=== PATIENT | male | born 1955 ===

== ENCOUNTER → 2017-12-09 09:14 | Outpatient (REF) | payer OTHER, SELFPAY ==
[2017-12-09 21:07] LABS: Cholesterol 141 mg/dL (50-200); HCT 36.1 % (40.0-50.0); HGB 11.8 g/dL (13.5-17.5); Mean Corp. HGB Concentration 32.7 g/dL (32.0-36.0); Mean Corpuscular Hemoglobin 30.2 pg (27.0-33.0); Mean Corpuscular Volume 92.3 fL (80-95); Mean Platelet Volume 10.3 fL (8.0-11.0); Platelet Count 181 x1000/uL (130-400); RBC 3.91 m/cumm (4.50-6.00); RBC Distribution Width 16.1 % (11.8-14.1); Triglyceride 198 mg/dL (30-150); White Blood Cell Count 8.49 k/cumm (4.4-10.8)
[2017-12-09 21:10] LABS: ALT 24 U/L (12-78); AST 14 U/L (15-37)
== END ==
LOC: NCHCN 09:14
PROVIDERS: PCP Family Medicine; Visit Provider Family Medicine
DX: L40.0 Psoriasis vulgaris (principal); Z79.899 Other long term (current) drug therapy
CPT/HCPCS: 85027; 82465; 84450; 84460; 84478

== ENCOUNTER → 2018-03-05 09:47 | Outpatient (BNVA) | payer OTHER, SELFPAY | PROVIDERS: PCP Family Medicine; Visit Provider Internal Medicine Cardiovascular Disease | DX: I42.9 Cardiomyopathy, unspecified (principal); I11.0 Hypertensive heart disease with heart failure; I50.9 Heart failure, unspecified; E11.40 Type 2 diabetes mellitus with diabetic neuropathy, unspecified; Z79.01 Long term (current) use of anticoagulants; R42 Dizziness and giddiness; E78.5 Hyperlipidemia, unspecified | CPT/HCPCS: 99214 ==

== ENCOUNTER 2018-03-17 09:52 | Outpatient (REF) | payer OTHER, SELFPAY ==
[2018-03-17 18:01] LABS: Cholesterol 146 mg/dL (50-200); Triglyceride 213 mg/dL (30-150)
[2018-03-17 18:04] LABS: HCT 36.6 % (40.0-50.0); Mean Corp. HGB Concentration 32.8 g/dL (32.0-36.0); Mean Corpuscular Hemoglobin 31.2 pg (27.0-33.0); Mean Corpuscular Volume 95.1 fL (80-95); Mean Platelet Volume 10.1 fL (8.0-11.0); Platelet Count 182 x1000/uL (130-400); RBC 3.85 m/cumm (4.50-6.00); RBC Distribution Width 16.3 % (11.8-14.1); White Blood Cell Count 8.68 k/cumm (4.4-10.8)
[2018-03-17 18:13] LABS: ALT 23 U/L (12-78); AST 13 U/L (15-37); Anion Gap 8.7 mmol/L (3-11); BUN 37 mg/dL (7-18); CO2 28.3 mmol/L (21.0-32.0); CREATININE 1.66 mg/dL (0.70-1.30); Chloride 101 mmol/L (98-107); Estimated GFR 42.33 (mL/min/1.73m2); Ferritin 251 ng/mL (8-388); Glucose 149 mg/dL (70-100); Magnesium 1.7 mg/dL (1.8-2.4); Potassium 4.1 mmol/L (3.5-5.1); Sodium 138 mmol/L (136-145)
== END 2018-03-17 10:12 ==
LOC: NCHCN 09:52
PROVIDERS: PCP Family Medicine; Visit Provider Family Medicine
DX: E11.9 Type 2 diabetes mellitus without complications (principal); I10 Essential (primary) hypertension; L40.0 Psoriasis vulgaris; Z79.899 Other long term (current) drug therapy
CPT/HCPCS: 80048; 85027; 82465; 82728; 83735; 84450; 84460; 84478; 85014; 85018

== ENCOUNTER 2018-03-26 18:59 | Outpatient (REF) | payer OTHER, SELFPAY ==
[2018-03-26 19:39] LABS: Albumin 3.5 g/dL (3.4-5.0); Anion Gap 8.8 mmol/L (3-11); BUN 38 mg/dL (7-18); CO2 28.2 mmol/L (21.0-32.0); Calcium 8.8 mg/dL (8.5-10.1); Chloride 100 mmol/L (98-107); Estimated GFR 51.52 (mL/min/1.73m2); Glucose 209 mg/dL (70-100); PHOSPHORUS 3.8 mg/dL (2.6-4.7); Potassium 4.2 mmol/L (3.5-5.1); Sodium 137 mmol/L (136-145)
== END 2018-03-26 19:19 ==
LOC: NCHCN 18:59
PROVIDERS: PCP Family Medicine; Visit Provider Family Medicine
DX: I10 Essential (primary) hypertension (principal); E11.9 Type 2 diabetes mellitus without complications; Z79.899 Other long term (current) drug therapy
CPT/HCPCS: 80048; 80069

== ENCOUNTER 2018-07-12 00:28 | Outpatient (CLI) | payer OTHER, SELFPAY ==
--- NOTE | 2018-07-12 14:00 | MERGE_ITS ---
*[facility]* *[facility]* [address] [place] [address] Date of study: 07/12/2018 Transthoracic Echocardiography M-mode, complete 2D, complete spectral Doppler, and color Doppler *STUDY CONCLUSIONS* Summary: 1. Left ventricle: The cavity size was moderately dilated. Systolic function was moderately to severely reduced. The estimated ejection fraction was 30-35%. Diffuse hypokinesis. Some parameters suggest diastolic dysfunction. There was no evidence of elevated ventricular filling pressure by Doppler parameters. Stroke volume/bsa (LVOT, Doppler): 18ml/m^2. 2. Aortic valve: There was mild stenosis. Peak velocity (S): 1.6m/sec. Mean gradient (S): 7.3mm Hg. VTI ratio of LVOT to aortic valve: 0.39. Valve area (VTI): 1.4cm^2. Indexed valve area (Vmean): 0.4cm^2/m^2. 3. Mitral valve: There was mild regurgitation. 4. Left atrium: The atrium was mildly dilated. 5. Right ventricle: The cavity size was normal. Wall thickness was normal. Systolic function was normal. 6. Right atrium: The atrium was mildly dilated. 7. Atrial septum: No defect or patent foramen ovale was identified. 8. Pulmonary arteries: Pulmonary systolic pressure was in the range of 15mm Hg to 25mm Hg. 9. Inferior vena cava: The vessel was patent and normal in size. The respirophasic diameter changes were in the normal range (greater than or equal to 50%), consistent with normal central venous pressure. *PATIENT PRESENTATION* Height: 177.8cm ((70in) ) S/D Pressure: 135 / 75 Weight: 176.9kg ((389.2lb) ) BSA: 3.06m^2 Test start time: 02:00 PM. Test stop time: 03:20 PM. CONSULTING Goldie Gutierrez V PERFORMING Unknown ORDERING Frank Miller REFERRING Frank Miller PERFORMING [facility] PHOTOCOPYING MACHINE OPERATOR Eileen Graves, RT (R)(CT), RD *PROCEDURE DATA* Procedure information: The patient was identified by two identifiers. This study was interpreted by [facility]. Pertinent images and digital data are archived for permanent storage and are available for subsequent review. Comparison was made to the study of 09/16/2017. Study status: Routine. Transthoracic echocardiography. M-mode, complete 2D, complete spectral Doppler, and color Doppler. A Transthoracic Echocardiogram was performed. Scanning was performed from the parasternal, apical, subcostal, and suprasternal notch acoustic windows. Images were obtained using an [id number] cardiac ultrasound machine. Image quality was adequate. Intravenous contrast (Definity) was administered by magnolia to enhance delineation of left ventricular endocardial borders. Prior to administration at least two (2) contiguous segments of the left ventricular border were not visualized. Definity amount administered was a total of 1ml. One vial was used. Study completion: The patient tolerated the procedure well. History: PMH: Cardiomyopathy. HTN COURTNEY i42.9, i10, G47.33. *CARDIAC ANATOMY* Left ventricle: The cavity size was moderately dilated. Systolic function was moderately to severely reduced. The estimated ejection fraction was 30-35%. Diffuse hypokinesis. The tissue Doppler parameters were abnormal. Some parameters suggest diastolic dysfunction. There was no evidence of elevated ventricular filling pressure by Doppler parameters. Aortic valve: Doppler: There was mild stenosis. There was no regurgitation. VTI ratio of LVOT to aortic valve: 0.39. Valve area (VTI): 1.4cm^2. Indexed valve area (VTI): 0.5cm^2/m^2. Peak velocity ratio of LVOT to aortic valve: 0.4. Valve area (Vmax): 1.4cm^2. Indexed valve area (Vmax): 0.5cm^2/m^2. Mean velocity ratio of LVOT to aortic valve: 0.36. Valve area (Vmean): 1.3cm^2. Indexed valve area (Vmean): 0.4cm^2/m^2. Mean gradient (S): 7.3mm Hg. Peak gradient (S): 10.6mm Hg. Aorta: Aortic root: The aortic root was normal in size. Ascending aorta: The ascending aorta was mildly dilated. Mitral valve: Doppler: There was no evidence for stenosis. There was mild regurgitation. Valve area by pressure half-time: 4cm^2. Indexed valve area by pressure half-time: 1.3cm^2/m^2. Peak gradient (D): 2.1mm Hg. Left atrium: The atrium was mildly dilated. Atrial septum: No defect or patent foramen ovale was identified. Right ventricle: The cavity size was normal. Wall thickness was normal. Systolic function was normal. Pulmonic valve: Doppler: There was no evidence for stenosis. There was no significant regurgitation. Peak gradient (S): 5.2mm Hg. Tricuspid valve: Doppler: There was mild regurgitation. Pulmonary artery: Poorly visualized. Pulmonary systolic pressure was in the range of 15mm Hg to 25mm Hg. Right atrium: The atrium was mildly dilated. Pericardium: There was no pericardial effusion. Systemic veins: Inferior vena cava: Not well visualized. The vessel was patent and normal in size. The respirophasic diameter changes were in the normal range (greater than or equal to 50%), consistent with normal central venous pressure. Baseline ECG: Normal sinus rhythm. Measurements Left ventricle Value 09/16/2017 Reference LV ID, ED, PLAX (H) 7.1 cm 7.7 3.5 - 6.0 LV ID, ES, PLAX (H) 5.8 cm 6.6 2.1 - 4.0 LV PW thickness, ED, PLAX 1.0 cm 0.9 LV end-diastolic volume, 310 ml 188 1-p A2C LV ejection fraction, 1-p 34 % 32 A2C LV end-diastolic volume, 360 ml 298 1-p A4C LV ejection fraction, 1-p 38 % 31 A4C LV e', lateral 0.076 m/sec 0.067 LV E/e', lateral 10 15 LV e', medial 0.05 m/sec 0.048 LV E/e', medial 14 21 LV e', average 0.063 m/sec 0.058 LV E/e', average 11 17 Ventricular septum Value 09/16/2017 Reference IVS thickness, ED, PLAX 0.9 cm 1.0 LVOT Value 09/16/2017 Reference LVOT ID, A-P 2.1 cm 2.1 LVOT area 3.6 cm^2 3.6 LVOT peak velocity, S 0.65 m/sec 0.81 LVOT mean velocity, S 0.48 m/sec 0.63 LVOT VTI, S 15.1 cm 20.7 LVOT peak gradient, S 1.7 mm Hg 2.6 LVOT mean gradient, S 1 mm Hg 1.8 Stroke volume (SV), LVOT 54 ml 74 DP Stroke index (SV/bsa), 18 ml/m^2 24 LVOT DP Aortic valve Value 09/16/2017 Reference Aortic valve peak 1.6 m/sec 1.9 velocity, S Aortic valve mean 1.32 m/sec 1.39 velocity, S Aortic valve VTI, S 39.0 cm 47.0 Aortic mean gradient, S 7.3 mm Hg 8.5 Aortic peak gradient, S 10.6 mm Hg 15.2 VTI ratio, LVOT/AV 0.39 0.44 Aortic valve area, VTI 1.4 cm^2 1.6 Velocity ratio, peak, 0.4 0.42 LVOT/AV Aortic valve area, peak 1.4 cm^2 1.5 velocity Velocity ratio, mean, 0.36 0.45 LVOT/AV Aortic valve area, mean 1.3 cm^2 1.6 velocity Aortic valve area/bsa, 0.4 cm^2/m^2 0.5 mean velocity Aorta Value 09/16/2017 Reference Aortic root ID, ED 3.4 cm 3.5 Ascending aorta ID, A-P, S 3.5 cm 3.0 Left atrium Value 09/16/2017 Reference LA area, ES, A4C (H) 28.9 cm^2 28.7 8.8 - 23.4 LA area, ES, A2C 18 cm^2 23 LA volume/bsa, ES, 1-p A4C 40 ml/m^2 39 LA volume, ES, 2-p 75 ml 93 LA volume/bsa, ES, 2-p 24 ml/m^2 30 Mitral valve Value 09/16/2017 Reference Mitral E-wave peak 0.72 m/sec 0.99 velocity Mitral A-wave peak 0.88 m/sec 0.79 velocity Mitral deceleration time 192 ms 172 150 - 230 Mitral pressure half-time 56 ms 50 Mitral peak gradient, D 2.1 mm Hg 3.9 Mitral E/A ratio, peak 0.82 1.25 Mitral valve area, PHT, DP 4 cm^2 4.4 Tricuspid valve Value 09/16/2017 Reference Tricuspid regurg peak 2 m/sec 2.3 velocity Tricuspid peak RV-RA 15.5 mm Hg 22 gradient Right atrium Value 09/16/2017 Reference RA area, ES, A4C (H) 24 cm^2 21.1 8.3 - 19.5 Pulmonic valve Value 09/16/2017 Reference Pulmonic peak gradient, S 5.2 mm Hg Legend: (L) and (H) wilton values outside specified reference range. I have personally reviewed the images and have reviewed and edited the reported findings. Electronically signed by Zelalem Edwards MD 07/12/2018 18:15
== END 2018-07-12 00:48 ==
PROVIDERS: PCP Family Medicine; Visit Provider Internal Medicine Cardiovascular Disease
DX: I42.9 Cardiomyopathy, unspecified (principal); I35.0 Nonrheumatic aortic (valve) stenosis; I34.0 Nonrheumatic mitral (valve) insufficiency; I10 Essential (primary) hypertension; G47.33 Obstructive sleep apnea (adult) (pediatric)
CPT/HCPCS: C8929

== ENCOUNTER → 2018-07-23 13:52 | Outpatient (BNVA) | payer OTHER, MEDICARE, SELFPAY | PROVIDERS: PCP Family Medicine; Visit Provider Internal Medicine Cardiovascular Disease | DX: I42.0 Dilated cardiomyopathy (principal); I13.0 Hypertensive heart and chronic kidney disease with heart failure and stage 1 through stage 4 chronic kidney disease, or unspecified chronic kidney disease; E78.5 Hyperlipidemia, unspecified; I50.9 Heart failure, unspecified; E11.9 Type 2 diabetes mellitus without complications; N18.9 Chronic kidney disease, unspecified | CPT/HCPCS: 99214 ==

== ENCOUNTER 2018-07-23 14:31 | Outpatient (CLI) | payer OTHER, MEDICARE, SELFPAY ==
[2018-07-23 14:57] LABS: HCT 39.1 % (40.0-50.0); HGB 12.8 g/dL (13.5-17.5); Mean Corp. HGB Concentration 32.7 g/dL (32.0-36.0); Mean Corpuscular Hemoglobin 31.1 pg (27.0-33.0); Mean Corpuscular Volume 94.9 fL (80-95); Mean Platelet Volume 9.1 fL (8.0-11.0); Platelet Count 183 x1000/uL (130-400); RBC 4.12 m/cumm (4.50-6.00); White Blood Cell Count 10.08 k/cumm (4.4-10.8)
[2018-07-23 17:14] LABS: ALT 21 U/L (12-78); AST 13 U/L (15-37)
[2018-07-23 17:15] LABS: Cholesterol 155 mg/dL (50-200); Triglyceride 310 mg/dL (30-150)
== END 2018-07-23 14:51 ==
PROVIDERS: PCP Family Medicine; Visit Provider Dermatology
DX: Z79.899 Other long term (current) drug therapy (principal); L40.9 Psoriasis, unspecified
CPT/HCPCS: 36415; 85027; 99214; 82465; 84450; 84460; 84478

== ENCOUNTER 2018-08-27 09:35 | Outpatient (REF) | payer OTHER, MEDICARE, SELFPAY ==
[2018-08-27 20:54] LABS: Hemoglobin A1C 5.9 % (4.5-6.2)
[2018-08-27 21:12] LABS: BUN 33 mg/dL (7-18); CREATININE 1.34 mg/dL (0.70-1.30); Chloride 100 mmol/L (98-107); Estimated GFR 54.19 (mL/min/1.73m2); Glucose 154 mg/dL (70-100); Potassium 4.1 mmol/L (3.5-5.1); Sodium 139 mmol/L (136-145); TSH (W/Ref FT4) 0.33 uIU/mL (0.358-3.74)
[2018-08-27 21:58] LABS: FREE T4 1.08 ng/dL (0.76-1.46)
[2018-08-30 12:13] LABS: PSA, Screening 0.6 ng/ml (0-4.5)
== END 2018-08-27 09:55 ==
LOC: NCHCN 09:35
PROVIDERS: PCP Family Medicine; Visit Provider Family Medicine
DX: E11.9 Type 2 diabetes mellitus without complications (principal); E03.9 Hypothyroidism, unspecified; I10 Essential (primary) hypertension; N28.9 Disorder of kidney and ureter, unspecified; Z00.00 Encounter for general adult medical examination without abnormal findings; Z12.5 Encounter for screening for malignant neoplasm of prostate
CPT/HCPCS: 80048; 84153; 83036; 84439; 84443

== ENCOUNTER 2018-12-23 11:10 | Outpatient (REF) | payer OTHER, MEDICARE, SELFPAY ==
[2018-12-23 21:38] LABS: HCT 36.5 % (40.0-50.0); HGB 12.2 g/dL (13.5-17.5); Mean Corp. HGB Concentration 33.4 g/dL (32.0-36.0); Mean Corpuscular Hemoglobin 31.9 pg (27.0-33.0); Mean Corpuscular Volume 95.3 fL (80-95); Mean Platelet Volume 10.1 fL (8.0-11.0); Platelet Count 174 x1000/uL (130-400); RBC 3.83 m/cumm (4.50-6.00); RBC Distribution Width 16.1 % (11.8-14.1); White Blood Cell Count 8.19 k/cumm (4.4-10.8)
[2018-12-23 21:51] LABS: Cholesterol 152 mg/dL (50-200); Triglyceride 244 mg/dL (30-150)
[2018-12-23 22:11] LABS: ALT 23 U/L (16-63); AST 11 U/L (15-37); Anion Gap 6.8 mmol/L (3-11); BUN 43 mg/dL (7-18); CO2 32.2 mmol/L (21.0-32.0); CREATININE 1.42 mg/dL (0.70-1.30); Chloride 100 mmol/L (98-107); Estimated GFR 50.52 (mL/min/1.73m2); Glucose 183 mg/dL (70-100); Potassium 4.6 mmol/L (3.5-5.1); Sodium 139 mmol/L (136-145); Vitamin B12 508 pg/mL (193-986)
== END 2018-12-23 11:30 ==
LOC: NCHCN 11:10
PROVIDERS: PCP Family Medicine; Visit Provider Family Medicine
DX: I10 Essential (primary) hypertension (principal); N28.9 Disorder of kidney and ureter, unspecified; G62.9 Polyneuropathy, unspecified; L40.0 Psoriasis vulgaris; Z79.899 Other long term (current) drug therapy
CPT/HCPCS: 80048; 85027; 82465; 82607; 84450; 84460; 84478

== ENCOUNTER 2019-06-30 09:28 | Outpatient (REF) | payer OTHER, MEDICARE, SELFPAY ==
[2019-06-30 19:45] LABS: ALT 21 U/L (16-63); AST 14 U/L (15-37); Albumin 3.6 g/dL (3.4-5.0); Alkaline Phosphatase 76 U/L (46-116); Anion Gap 7.9 mmol/L (3-11); BUN 44 mg/dL (7-18); Bilirubin, Total 0.7 mg/dL (0.2-1.0); CO2 31.1 mmol/L (21.0-32.0); CREATININE 1.61 mg/dL (0.70-1.30); Chloride 100 mmol/L (98-107); Glucose 176 mg/dL (74-106); Magnesium 1.7 mg/dL (1.8-2.4); Potassium 4.6 mmol/L (3.5-5.1); Sodium 139 mmol/L (136-145); TSH (W/Ref FT4) 0.86 uIU/mL (0.36-3.74)
[2019-06-30 19:49] LABS: HCT 40.5 % (40.0-50.0); HGB 13.2 g/dL (13.5-17.5); Mean Corp. HGB Concentration 32.6 g/dL (32.0-36.0); Mean Corpuscular Hemoglobin 31.2 pg (27.0-33.0); Mean Corpuscular Volume 95.7 fL (80-95); Mean Platelet Volume 9.9 fL (8.0-11.0); Platelet Count 221 x1000/uL (130-400); RBC 4.23 m/cumm (4.50-6.00); White Blood Cell Count 9.87 k/cumm (4.4-10.8)
[2019-06-30 20:24] LABS: Hemoglobin A1C 6.8 % (3.8-5.6)
== END 2019-06-30 09:48 ==
LOC: NCHCN 09:28
PROVIDERS: PCP Family Medicine; Visit Provider Family Medicine
DX: E03.9 Hypothyroidism, unspecified (principal); E11.9 Type 2 diabetes mellitus without complications; I10 Essential (primary) hypertension; N28.9 Disorder of kidney and ureter, unspecified; I50.9 Heart failure, unspecified; Z86.2 Personal history of diseases of the blood and blood-forming organs and certain disorders involving the immune mechanism
CPT/HCPCS: 80053; 85027; 83036; 83735; 84443

== ENCOUNTER 2019-08-03 09:57 | Outpatient (REF) | payer OTHER, MEDICARE, SELFPAY ==
[2019-08-03 19:06] LABS: HCT 38.5 % (40.0-50.0); HGB 12.7 g/dL (13.5-17.5); Mean Corpuscular Hemoglobin 31.5 pg (27.0-33.0); Mean Corpuscular Volume 95.5 fL (80-95); Mean Platelet Volume 9.8 fL (8.0-11.0); Platelet Count 216 x1000/uL (130-400); RBC 4.03 m/cumm (4.50-6.00); RBC Distribution Width 16.4 % (11.8-14.1); White Blood Cell Count 10.65 k/cumm (4.4-10.8)
[2019-08-03 19:35] LABS: ALT 25 U/L (16-63); AST 13 U/L (15-37); Anion Gap 6.7 mmol/L (3-11); BUN 43 mg/dL (7-18); CO2 32.3 mmol/L (21.0-32.0); CREATININE 1.53 mg/dL (0.70-1.30); Calcium 9.1 mg/dL (8.5-10.1); Chloride 98 mmol/L (98-107); Estimated GFR 46.35 (mL/min/1.73m2); Glucose 174 mg/dL (74-106); Magnesium 1.8 mg/dL (1.8-2.4); Potassium 4.7 mmol/L (3.5-5.1); Sodium 137 mmol/L (136-145); Triglyceride 277 mg/dL (<150)
[2019-08-03 20:14] LABS: Creatine Kinase 60 U/L (39-308); Uric Acid 7.2 mg/dL (3.5-7.2)
== END 2019-08-03 10:17 ==
LOC: NCHCN 09:57
PROVIDERS: PCP Family Medicine; Visit Provider Family Medicine
DX: I50.9 Heart failure, unspecified (principal); N28.9 Disorder of kidney and ureter, unspecified; I10 Essential (primary) hypertension; R60.0 Localized edema; M10.9 Gout, unspecified; L40.0 Psoriasis vulgaris; Z79.899 Other long term (current) drug therapy
CPT/HCPCS: 80048; 82550; 85027; 83735; 84450; 84460; 84478; 84550

== ENCOUNTER 2019-09-06 13:21 | Outpatient (REF) | payer OTHER, MEDICARE, SELFPAY ==
[2019-09-06 20:19] LABS: Anion Gap 5.8 mmol/L (3-11); BUN 40 mg/dL (7-18); CO2 33.2 mmol/L (21.0-32.0); Chloride 99 mmol/L (98-107); Estimated GFR 38.42 (mL/min/1.73m2); Glucose 305 mg/dL (74-106); Magnesium 1.6 mg/dL (1.8-2.4); Potassium 4.4 mmol/L (3.5-5.1); Sodium 138 mmol/L (136-145)
[2019-09-06 20:30] LABS: Hemoglobin A1C 6.8 % (3.8-5.6)
--- NOTE | 2019-09-11 19:37 | NUR.NOTE ---
Addendum entered by Jayshree Poe 09/11/19 19:39: As requested by the house fellow Marian Carrillo Echocardiogram results faxed over to [facility]. patient consent faxed over from [facility]. Unable to find EKG in our system or in [facility]. Original Note: as requested by the house fellow marian carrillo echocardiogram results faxed over to located within [facility] =ca====Nursing Note:
== END 2019-09-06 13:41 ==
LOC: NCHCN 13:21
PROVIDERS: PCP Family Medicine; Visit Provider Family Medicine
DX: I10 Essential (primary) hypertension (principal); E11.9 Type 2 diabetes mellitus without complications; M10.9 Gout, unspecified; N28.9 Disorder of kidney and ureter, unspecified
CPT/HCPCS: 80048; 83036; 83735

== ENCOUNTER 2020-03-01 09:21 | Outpatient (REF) | payer OTHER, MEDICARE, SELFPAY ==
[2020-03-01 19:02] LABS: HCT 39.7 % (40.0-50.0); HGB 13.4 g/dL (13.5-17.5); MCH 29.8 pg (27.0-33.0); MCHC 33.8 % (32.0-36.0); MCV 88.2 fL (80-95); MPV 10.1 fL (8.0-11.0); Platelet Count 177 10^3/uL (130-400); WBC 8.59 10^3/uL (4.4-10.8)
[2020-03-01 19:08] LABS: ALT 27 U/L (16-63); AST 16 U/L (15-37)
[2020-03-01 19:09] LABS: Cholesterol 170 mg/dL (<200); Triglyceride 383 mg/dL (<150)
== END 2020-03-01 09:41 ==
LOC: NCHCN 09:21
PROVIDERS: PCP Family Medicine; Visit Provider Family Medicine
DX: Z79.899 Other long term (current) drug therapy (principal)
CPT/HCPCS: 85027; 82465; 84450; 84460; 84478

== ENCOUNTER 2020-05-23 13:59 | Outpatient (REF) | payer OTHER, MEDICARE, SELFPAY ==
[2020-05-23 21:10] LABS: ALT 24 U/L (16-63); AST 11 U/L (15-37); Albumin 3.7 g/dL (3.4-5.0); Alkaline Phosphatase 65 U/L (46-116); Anion Gap 5.6 mmol/L (3-11); BUN 44 mg/dL (7-18); Bilirubin, Total 0.6 mg/dL (0.2-1.0); CO2 33.4 mmol/L (21.0-32.0); CREATININE 1.66 mg/dL (0.70-1.30); Calculated LDL 59 mg/dL (<100); Chloride 99 mmol/L (98-107); Cholesterol 137 mg/dL (<200); Estimated GFR 42.05 (mL/min/1.73m2); Glucose 171 mg/dL (74-106); HDL Cholesterol 32 mg/dL (40-60); Potassium 4.2 mmol/L (3.5-5.1); Sodium 138 mmol/L (136-145); TSH (W/Ref FT4) 1.28 uIU/mL (0.36-3.74); Triglyceride 232 mg/dL (<150)
== END 2020-05-23 14:19 ==
LOC: NCHCN 13:59
PROVIDERS: PCP Family Medicine; Visit Provider Family Medicine
DX: E11.9 Type 2 diabetes mellitus without complications (principal); I42.9 Cardiomyopathy, unspecified; I50.9 Heart failure, unspecified; E66.9 Obesity, unspecified; E03.9 Hypothyroidism, unspecified
CPT/HCPCS: 80053; 80061; 84443

== ENCOUNTER 2020-11-30 09:51 | Outpatient (REF) | payer OTHER, MEDICARE, SELFPAY ==
[2020-11-30 13:59] LABS: HCT 41.3 % (40.0-50.0); HGB 13.7 g/dL (13.5-17.5)
[2020-11-30 14:13] LABS: ALT 36 U/L (16-63); AST 25 U/L (15-37); Albumin 3.7 g/dL (3.4-5.0); Alkaline Phosphatase 74 U/L (46-116); Anion Gap 7.5 mmol/L (3-11); BUN 35 mg/dL (7-18); Bilirubin, Total 0.6 mg/dL (0.2-1.0); CO2 31.5 mmol/L (21.0-32.0); CREATININE 1.4 mg/dL (0.70-1.30); Calcium 9.4 mg/dL (8.5-10.1); Chloride 101 mmol/L (98-107); Estimated GFR 51.02 (mL/min/1.73m2); Glucose 182 mg/dL (74-106); Potassium 4.9 mmol/L (3.5-5.1); Sodium 140 mmol/L (136-145); Total Protein 6.8 g/dL (6.4-8.2)
== END 2020-11-30 09:52 | disposition home or self-care (01) ==
LOC: NCHCN 09:51
PROVIDERS: PCP Family Medicine; Visit Provider Family Medicine
DX: I10 Essential (primary) hypertension (principal); I50.9 Heart failure, unspecified; I42.9 Cardiomyopathy, unspecified; Z86.2 Personal history of diseases of the blood and blood-forming organs and certain disorders involving the immune mechanism; R60.0 Localized edema
CPT/HCPCS: 80053; 85014; 85018

== ENCOUNTER 2021-07-03 15:16 | Outpatient (REF) | payer OTHER, MEDICARE, SELFPAY ==
[2021-07-03 12:17] LABS: Anion Gap 8.8 mmol/L (3-11); BUN 38 mg/dL (7-18); CO2 29.2 mmol/L (21.0-32.0); CREATININE 1.5 mg/dL (0.70-1.30); Calcium 9.2 mg/dL (8.5-10.1); Chloride 97 mmol/L (98-107); Estimated GFR 47.12 (mL/min/1.73m2); Glucose 204 mg/dL (74-106); Potassium 4.7 mmol/L (3.5-5.1); Sodium 135 mmol/L (136-145)
== END 2021-07-03 15:17 | disposition home or self-care (01) ==
LOC: NCHCN 15:16
PROVIDERS: PCP Family Medicine; Visit Provider Family Medicine
DX: Z00.00 Encounter for general adult medical examination without abnormal findings (principal); I10 Essential (primary) hypertension
CPT/HCPCS: 80048; 83735

== ENCOUNTER 2022-01-10 09:51 | Outpatient (REF) | payer OTHER, MEDICARE, SELFPAY ==
[2022-01-10 14:54] LABS: HCT 41.7 % (40.0-50.0); HGB 13.9 g/dL (13.5-17.5); MCH 30.8 pg (27.0-33.0); MCHC 33.3 % (32.0-36.0); MCV 92 fL (80-95); Platelet Count 169 10^3/uL (130-400); RBC 4.52 10^6/uL (4.36-5.78); RDW-SD 53.9 fL
[2022-01-10 15:18] LABS: ALT 18 U/L (16-63); AST 16 U/L (15-37); Albumin 3.4 g/dL (3.4-5.0); Alkaline Phosphatase 76 U/L (46-116); Anion Gap 4.5 mmol/L (3-11); BUN 40 mg/dL (7-18); Bilirubin, Total 0.9 mg/dL (0.2-1.0); CO2 33.5 mmol/L (21.0-32.0); CREATININE 1.7 mg/dL (0.70-1.30); Calcium 9.3 mg/dL (8.5-10.1); Chloride 100 mmol/L (98-107); Estimated GFR 44.18 (mL/min/1.73m2); Glucose 179 mg/dL (74-106); Potassium 4.6 mmol/L (3.5-5.1); Sodium 138 mmol/L (136-145); TSH (W/Ref FT4) 0.54 uIU/mL (0.36-3.74); Total Protein 7.6 g/dL (6.4-8.2)
== END 2022-01-10 09:52 | disposition home or self-care (01) ==
LOC: NCHCN 09:51
PROVIDERS: PCP Family Medicine; Visit Provider Family Medicine
DX: E11.9 Type 2 diabetes mellitus without complications (principal); I50.9 Heart failure, unspecified
CPT/HCPCS: 80053; 85027; 84443

== ENCOUNTER 2022-06-17 16:00 | Outpatient (REF) | payer OTHER, MEDICARE, SELFPAY | END 2022-06-17 16:01 | disposition home or self-care (01) | LOC: NCHCN 16:00 | PROVIDERS: PCP Family Medicine; Visit Provider Family Medicine | DX: L02.221 Furuncle of abdominal wall (principal) | CPT/HCPCS: 87077; 87070; 87186; 87205 ==

== ENCOUNTER 2022-07-10 12:36 | Outpatient (REF) | payer OTHER, MEDICARE, SELFPAY ==
[2022-07-10 15:49] LABS: Hemoglobin A1C 6.7 % (<5.7)
[2022-07-10 15:55] LABS: ALT 19 U/L (16-63); AST 12 U/L (15-37); Albumin 3.7 g/dL (3.4-5.0); Alkaline Phosphatase 85 U/L (46-116); Anion Gap 6.9 mmol/L (3-11); BUN 36 mg/dL (7-18); Bilirubin, Total 0.7 mg/dL (0.2-1.0); CO2 30.1 mmol/L (21.0-32.0); CREATININE 1.8 mg/dL (0.70-1.30); Calcium 9.7 mg/dL (8.5-10.1); Chloride 100 mmol/L (98-107); Estimated GFR 41.26 (mL/min/1.73m2); FREE T4 0.95 ng/dL (0.76-1.46); Glucose 220 mg/dL (74-106); Potassium 4.4 mmol/L (3.5-5.1); Sodium 137 mmol/L (136-145); Total Protein 7.5 g/dL (6.4-8.2)
== END 2022-07-10 12:37 | disposition home or self-care (01) ==
LOC: NCHCN 12:36
PROVIDERS: PCP Family Medicine; Visit Provider Family Medicine
DX: E11.9 Type 2 diabetes mellitus without complications (principal); I42.9 Cardiomyopathy, unspecified; N28.9 Disorder of kidney and ureter, unspecified; I10 Essential (primary) hypertension; E03.9 Hypothyroidism, unspecified; E66.01 Morbid (severe) obesity due to excess calories
CPT/HCPCS: 80053; 83036; 84439

== ENCOUNTER 2022-11-13 14:32 | Outpatient (REF) | payer OTHER, MEDICARE, SELFPAY ==
[2022-11-13 19:18] LABS: Anion Gap 6.3 mmol/L (3-11); BUN 56 mg/dL (7-18); CO2 32.7 mmol/L (21.0-32.0); Calcium 9.3 mg/dL (8.5-10.1); Chloride 102 mmol/L (98-107); Estimated GFR 36.36 (mL/min/1.73m2); Glucose 218 mg/dL (74-106); Potassium 4.6 mmol/L (3.5-5.1); Sodium 141 mmol/L (136-145); Uric Acid 7.1 mg/dL (3.5-7.2)
== END 2022-11-13 14:33 | disposition home or self-care (01) ==
LOC: NCHCN 14:32
PROVIDERS: PCP Family Medicine; Visit Provider Family Medicine
DX: M10.9 Gout, unspecified (principal); M79.672 Pain in left foot
CPT/HCPCS: 80048; 84550

== ENCOUNTER 2022-12-09 15:40 | Outpatient (REF) | payer OTHER, MEDICARE, SELFPAY ==
[2022-12-09 21:12] LABS: BUN 59 mg/dL (7-18); CREATININE 2.3 mg/dL (0.70-1.30); Calcium 9.6 mg/dL (8.5-10.1); Chloride 104 mmol/L (98-107); Estimated GFR 30.55 (mL/min/1.73m2); Glucose 129 mg/dL (74-106); Potassium 4.6 mmol/L (3.5-5.1); Sodium 144 mmol/L (136-145)
== END 2022-12-09 15:41 | disposition home or self-care (01) ==
LOC: NCHCN 15:40
PROVIDERS: PCP Family Medicine; Visit Provider Family Medicine
DX: I42.9 Cardiomyopathy, unspecified (principal); E11.9 Type 2 diabetes mellitus without complications; I10 Essential (primary) hypertension; E03.9 Hypothyroidism, unspecified
CPT/HCPCS: 80048

== ENCOUNTER 2023-02-27 13:11 | Outpatient (REF) | payer OTHER, MEDICARE, SELFPAY ==
[2023-02-27 16:12] LABS: Anion Gap 6.9 mmol/L (3-11); BUN 53 mg/dL (7-18); CO2 31.1 mmol/L (21.0-32.0); CREATININE 1.8 mg/dL (0.70-1.30); Calcium 9.8 mg/dL (8.5-10.1); Chloride 97 mmol/L (98-107); Glucose 226 mg/dL (74-106); NT-proBNP 1275 pg/mL (<300); Potassium 4.1 mmol/L (3.5-5.1); Sodium 135 mmol/L (136-145); TSH (W/Ref FT4) 1.79 uIU/mL (0.36-3.74)
[2023-02-27 16:27] LABS: Hemoglobin A1C 6.9 % (<5.7)
== END 2023-02-27 13:12 | disposition home or self-care (01) ==
LOC: NCHCN 13:11
PROVIDERS: PCP Family Medicine; Visit Provider Family Medicine
DX: E11.9 Type 2 diabetes mellitus without complications (principal); N28.9 Disorder of kidney and ureter, unspecified
CPT/HCPCS: 80048; 83036; 83880; 84443

== ENCOUNTER 2023-03-11 15:08 | Outpatient (REF) | payer OTHER, MEDICARE, SELFPAY ==
[2023-03-11 15:56] LABS: Anion Gap 9.6 mmol/L (3-11); BUN 48 mg/dL (7-18); CO2 33.4 mmol/L (21.0-32.0); Calcium 9.9 mg/dL (8.5-10.1); Chloride 102 mmol/L (98-107); Estimated GFR 36.13 (mL/min/1.73m2); Glucose 204 mg/dL (74-106); NT-proBNP 1184 pg/mL (<300); Potassium 4.6 mmol/L (3.5-5.1); Sodium 145 mmol/L (136-145)
== END 2023-03-11 15:09 | disposition home or self-care (01) ==
LOC: NCHCN 15:08
PROVIDERS: PCP Family Medicine; Visit Provider Family Medicine
DX: I50.9 Heart failure, unspecified (principal)
CPT/HCPCS: 80048; 83880

== ENCOUNTER 2023-04-09 09:58 | Outpatient (REF) | payer OTHER, MEDICARE, SELFPAY ==
[2023-04-09 17:15] LABS: Anion Gap 3.4 mmol/L (3-11); BUN 59 mg/dL (7-18); CO2 36.6 mmol/L (21.0-32.0); CREATININE 2.2 mg/dL (0.70-1.30); Calcium 9.9 mg/dL (8.5-10.1); Chloride 99 mmol/L (98-107); Estimated GFR 32.23 (mL/min/1.73m2); Glucose 222 mg/dL (74-106); NT-proBNP 1187 pg/mL (<300); Potassium 4.1 mmol/L (3.5-5.1); Sodium 139 mmol/L (136-145)
== END 2023-04-09 09:59 | disposition home or self-care (01) ==
LOC: NCHCN 09:58
PROVIDERS: PCP Family Medicine; Visit Provider Family Medicine
DX: I50.9 Heart failure, unspecified (principal)
CPT/HCPCS: 80048; 83880

== ENCOUNTER 2023-07-07 11:09 | Outpatient (REF) | payer MEDICARE, SELFPAY ==
[2023-07-07 16:05] LABS: Anion Gap 8.1 mmol/L (3-11); BUN 60 mg/dL (7-18); CO2 32.9 mmol/L (21.0-32.0); CREATININE 1.8 mg/dL (0.70-1.30); Chloride 99 mmol/L (98-107); Glucose 209 mg/dL (74-106); Potassium 4.4 mmol/L (3.5-5.1); Sodium 140 mmol/L (136-145)
[2023-07-07 16:32] LABS: Hemoglobin A1C 6.8 % (<5.7)
== END 2023-07-07 11:10 | disposition home or self-care (01) ==
LOC: NCHCN 11:09
PROVIDERS: PCP Family Medicine; Referring Provider Family Medicine; Visit Provider Family Medicine
DX: E11.9 Type 2 diabetes mellitus without complications (principal)
CPT/HCPCS: 80048; 83036

== ENCOUNTER 2023-07-19 07:55 | Emergency (ER) | payer MEDICARE, SELFPAY ==
[2023-07-19] VITALS (112 sets, daily range): BP systolic 75–149; BP diastolic 29–100; PULSE 81–126; RESP 13–34; TEMP 36.7–38.4; O2SAT 84–99
--- NOTE | 2023-07-19 07:45 | RT.EKG_ITS ---
APPROVED REPORT Exam: Resting ECG Reason for Exam: Altered Mental Status Patient Location: E HR:101 bpm ECG Measurements Heart Rate 101 AXIS ID 167 P 21 QRSd 130 QRS 15 QT 368 T 119 QTc 478 Conclusion Sinus tachycardia. 101 lbbb no stemi
--- NOTE | 2023-07-19 08:00 | DI.RAD_ITS ---
Exam(s) XR PORTABLE CHEST AP EXAM: XR PORTABLE CHEST AP CLINICAL HISTORY: hypoxia, CHF, sepsis TECHNIQUE: 2D digital imaging was performed. COMPARISON: No exams were available for comparison FINDINGS: Exam is limited by under penetration and poor pulmonary inflation. LUNGS: Clear. No pleural abnormality seen. HEART: Enlarged. AORTA: Normal diameter. BONES: Unremarkable for age. Soft tissues: Electronic device overlies the left upper lobe. IMPRESSION: No acute findings. DATA REPOSITORY: RADIATION DOSE DELIVERED:
--- NOTE | 2023-07-19 08:10 | ED.GENADUL_ITS ---
Discharge Plan Disposition Patient Disposition: Transfer-Acute Inpatient Care Specific Acute Inpt Facility: [facility] Condition: Critical Discharge Details Clinical Impression: Cardiorenal syndrome with renal failure, Acute hypotension, Sepsis Primary Care Provider: Goldie Gutierrez V ED Provider: Ryan Alejo Home Meds and New Rx's Prescriptions: No Action metoprolol succinate 100 mg tablet extended release 24 hr 100 mg PO DAILY Qty: 90 3RF tramadol 50 mg tablet 50 mg PO BID PRN losartan 50 mg tablet 50 mg PO DAILY Qty: 90 3RF fluconazole 100 mg tablet 100 mg PO DAILY PRN docusate sodium [Colace] 100 mg capsule 100 mg PO BID PRN Metamucil 3.4 gram/5.4 gram powder 1 tbsp PO DAILY PRN Rx Instructions: mix into at least 8 oz of water or juice before administering Trulicity 3 mg/0.5 mL pen injector 3 mg subcut QWEEK duloxetine 30 mg capsule,delayed release(DR/EC) 60 mg PO DAILY meclizine 25 mg tablet,chewable 25 mg PO DAILY PRN allopurinol 300 MG tablet 300 mg PO DAILY clobetasol-emollient 15 GM cream 15 gm Topical DAILY levothyroxine 200 MCG tablet 200 mcg PO DAILY acetaminophen [Tylenol] 325 mg tablet 650 mg PO BID aspirin [Aspir-81] 81 MG tablet,delayed release (DR/EC) 81 mg PO DAILY gabapentin 600 MG tablet 600 mg PO TID pravastatin 40 MG tablet 40 mg PO HS amitriptyline 25 MG tablet 25 mg PO HS diclofenac sodium [Voltaren] 1 % gel 2 gm Topical QID PRN clotrimazole 1 % solution 1 applic Topical BID PRN ergocalciferol (vitamin D2) 1,250 mcg (50,000 unit) capsule 1,250 mcg PO .2x weekly furosemide 80 mg tablet 80 mg PO DAILY Jardiance 10 mg tablet 10 mg PO DAILY Humira 40 mg/0.8 mL syringe kit 40 mg subcut Q14D spironolactone 25 mg tablet 25 mg PO DAILY Discharge Data Discharge Date/Time-TO BE ENTERED AT DEPARTURE: 07/19/23 10:52 HPI General Date/Time Provider Initiated Documentation: 07/19/23 08:03 . HPI Narrative: 67 year-old male presents to ED today by EMS w/ SBP in the 70s with a chief complaint of fever, altered mental status with onset for the past couple days. Patient answers all questions appropriately, but does have some repetitive questioning. Quality described as generalized fatigue, denies chest pain, denies abdominal pain/nausea/vomiting, states he has groin pain in his inguinal folds, and leg pen with some redness to L lateral calf, no radiation to slurred speech, cough, severe headache. Severity is described as severe. Palliating factors include nothing specific attempted. Provoking factors include nothing specific. Events leading up to the incident/Associated Symptoms: Patient has complex medical history - non-ischemic cardiomyopathy, last EF 30-35%, t2DM, uses 3L O2 at home, CHF, HTN, morbid obesity. Patient wishes to be full code. Patient not anticoagulated. Related Data Home Medications Medication Instructions Recorded Confirmed amitriptyline 25 mg tablet 25 mg PO HS 12/18/12 07/19/23 aspirin 81 mg tablet,delayed 81 mg PO DAILY 12/18/12 07/19/23 release (Aspir-) gabapentin 600 mg tablet 600 mg PO TID 12/18/12 07/19/23 pravastatin 40 mg tablet 40 mg PO HS 12/18/12 07/19/23 allopurinol 300 mg tablet 300 mg PO DAILY 02/06/14 07/19/23 clobetasol-emollient 0.05 % 15 gm topical DAILY 08/08/16 07/19/23 topical cream levothyroxine 200 mcg tablet 200 mcg PO DAILY 08/28/17 07/19/23 metoprolol succinate 100 mg 100 mg PO DAILY #90 tabs 03/05/18 07/19/23 tablet,extended release 24 hr tramadol 50 mg tablet 50 mg PO BID PRN 01/26/19 07/19/23 acetaminophen 325 mg tablet 650 mg PO BID 01/27/19 07/19/23 (Tylenol) clotrimazole 1 % topical solution 1 applic topical BID PRN 01/27/19 07/19/23 diclofenac sodium 1 % topical gel 2 gm topical QID PRN 01/27/19 07/19/23 (Voltaren) losartan 50 mg tablet 50 mg PO DAILY blood pressure #90 01/27/19 07/19/23 tabs docusate sodium 100 mg capsule 100 mg PO BID PRN 11/18/22 07/19/23 (Colace) dulaglutide 3 mg/0.5 mL 3 mg subcut QWEEK 11/18/22 07/19/23 subcutaneous pen injector (Trulicity) duloxetine 30 mg capsule,delayed 60 mg PO DAILY 11/18/22 07/19/23 release fluconazole 100 mg tablet 100 mg PO DAILY PRN 11/18/22 07/19/23 meclizine 25 mg chewable tablet 25 mg PO DAILY PRN 11/18/22 07/19/23 psyllium husk 3.4 gram/5.4 gram 1 tbsp PO DAILY PRN 11/18/22 07/19/23 oral powder (Metamucil) adalimumab 40 mg/0.8 mL 40 mg subcut Q14D 07/19/23 07/19/23 subcutaneous syringe kit (Humira) empagliflozin 10 mg tablet 10 mg PO DAILY 07/19/23 07/19/23 (Jardiance) ergocalciferol (vitamin D2) 1,250 1,250 mcg PO .2x weekly 07/19/23 07/19/23 mcg (50,000 unit) capsule furosemide 80 mg tablet 80 mg PO DAILY 07/19/23 07/19/23 spironolactone 25 mg tablet 25 mg PO DAILY 07/19/23 07/19/23 Previous Rx's Medication Instructions Recorded metoprolol succinate 100 mg 100 mg PO DAILY #90 tabs 03/05/18 tablet,extended release 24 hr losartan 50 mg tablet 50 mg PO DAILY blood pressure #90 01/27/19 tabs Allergies Allergy/AdvReac Type Severity Reaction Status Date / Time lisinopril [From Prinivil] Allergy Severe itching in Unverified 07/19/23 08:54 throat hay fever Allergy Unknown Skin Rash Uncoded 07/19/23 08:54 General Stated Complaint: AMS/LOC MARK: 2 Review of Systems All systems reviewed & are unremarkable except as noted in HPI and below Exam Narrative Exam Narrative: GENERAL APPEARANCE: Morbid obesity, toxic, awake and alert to spontaneous activity, atraumatic, moderate acute distress. SKIN: Warm, pink, dry, intact, redness to L lateral calf, no open lesion, suspect cellulitis HEAD: Normocephalic, atraumatic, normal hair distribution for gender/age. EYES: Pupils PERRLA, EOMs intact without nystagmus, normal conjunctiva, no exudates on lids/lashes. ENT: Nares patent, no circumoral cyanosis, no facial swelling, oral mucosa dry NECK: Supple, trachea midline, painless cervical ROM. LUNGS/CHEST: Lungs- question rales at bases, very difficult auscultation due to body habitus, mildly labored respirations, symmetrical expansion, no chest wall deformity, no crepitus HEART (CV/PV): Not auscultated due to body habitus, no pitting edema in bilat LEs, some scrotal/penile edema, no JVD. ABDOMEN: Large deformity from prior abdominal surgery, morbid obesity, distended, no focal tenderness. : some penile/scrotal edema, mild redness, warmth to touch, not grossly enlarged, some candidiasis in inguinal folds MSK: Normal ROM, no swelling/deformity to bilateral UEs or LEs, moving all extremities with mild weakness, no cyanosis, spine midline without tenderness, normal curvature. NEURO: Mental Status AAOx4 - alert to person, place, time, events No facial droop, no forehead involvement. Motor: No focal weakness - strength 4/5 in bilateral UEs and LEs, proximal and distal, symmetric. - suspect baseline Sensory: sensation intact to light touch globally. Gait NT. PSYCH: euthymic, cooperative, pleasant, appropriate speech Course Vital Signs Vital signs: Vital Signs Temperature 36.7 C 07/19/23 07:59 Pulse 105 H 07/19/23 07:59 Respiratory Rate 21 07/19/23 07:59 Blood Pressure 112/45 L 07/19/23 07:59 Pulse Oximetry 84 L 07/19/23 07:59 Temperature 36.7 C 07/19/23 07:59 Temperature Source Oral 07/19/23 07:59 Pulse 105 H 07/19/23 07:59 Respiratory Rate 21 07/19/23 07:59 Blood Pressure 112/45 L 07/19/23 07:59 Blood Pressure Position Supine 07/19/23 07:59 Pulse Oximetry 84 L 07/19/23 07:59 Oxygen Delivery Method Room Air 07/19/23 07:59 Oxygen Flow Rate 0 07/19/23 07:59 Pain Level 8 07/19/23 07:59 Lab/Test Results Lab/Test Results: 07/19/23 08:04 Blood Blood Culture - Pending 07/19/23 08:04 Blood Blood Culture - Pending Medical Decision Making This dictation utilizes [id number] dictation software and may contain unedite d grammatical errors. 67 y/o M presents to ED today with a chief complaint of fever, altered mental status, hypotension, suspicion of sepsis- states onset a couple days ago- unsure of source of infection, does endorse leg pain near redness but no open lesion, some groin pain in his inguinal folds- with candidiasis- denies nausea/vomiting, denies cough, denies shortness of breath beyond baseline O2 use. Patient has records with [facility]. 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 Family and social history: lives at home with his , does ambulate around usually- but has been too sick. Pertinent exam findings / vital signs include morbid obesity, large hernia from prior ABD surgery, hypoxia, hypotension, febrile, question scrotal source with warmth to touch, pulmonary edema with B-lines on POCUS exam. Differential / pathologies of concern include Sepsis, Lan's Gangrene, Cellulitis, Abdominal Infection, Pneumonia, Biliary Pathology Diagnostic studies of: -CBC, CMP, lactate, procalcitonin, Trope I, BNP, VBG, ammonia, CRP/ESR, urinalysis, blood cultures, magnesium, CK, lipase, EKG, portable chest x-ray, CT abdomen pelvis with contrast. -CBC shows leukocytosis to 25 -CMP shows ARF with SCr of 4.4, elevated BUN 104, elevated bilirubin 1.2, elev alk phos 162 > adding liver panel conjugated bilirubin 0.7, possible biliary obstruction -CRP > 25, ESR 62 -BNP 7000 -Trop I negative -Lipase WNL -Lactate 1.8, Procalcitonin 1.8 > sepsis -UA non-infected -Covid/Flu/RSV negative -CXR shows pulmonary edema, cardiomegaly -CT ABD/Pelvis shows necrotizing fasciitis in R groin > re-consult with [facility] -EKG without STEMI, LBBB, PVC's, tachy, does not meet sgarbossa criteria Interventions of: -250mL bolus- will repeat bolus q1hr with re-checks due to pulmonary edema, 40mg IV Lasix with urine output, IV Vancomycin, Clindamycin, Zosyn, 1g IV Tylenol, 15mg IV Toradol, 8mg IV Zofran. -Emergent transfer, accepted [facility] MICU pending CT read by Dr. Perla @ [id number], Idania paged for transfer ED Course/Assessment/Plan: 67-year-old male presents by EMS with hypotension, febrile likely septic. Unknown source at time of arrival, has chronic diabetic leg wounds but no open lesions. Blood pressure on arrival was 70s over 30s, patient has B-lines on POCUS exam and history of nonischemic cardiomyopathy with reduced EF of 30 to 35%, CHF, oxygen dependence without COPD, morbid obesity 195 kg. Due to the delicate fluid status of the patient but clear infection I am giving him 250 mL boluses as well as 40 mg IV Lasix, initiated antibiotics for empiric coverage of a possible Lan's gangrene but the scrotum is not grossly enlarged it is slightly warm to touch and has some edema. I do not think his left calf redness is source of infection. He has elevated bilirubin with conjugated bilirubin still pending, white count of 25 and elevated BNP to 7000, we have no prior labs on this patient in our system. He responded well to norepinephrine with stable blood pressures, he is mentating normally and answering questions appropriately. He states he wants to be a full code. He has history of tracheal stenosis, there is high risk for intubation and the patient has potential for dialysis with acute renal failure and a creatinine of 4.4 warranting a higher level of care. I did consult with [facility] as [facility] was unsure of capacity. [facility] accepted to MICU, pending CT read, which shows necrotizing fasciitis of R groin, re-consulting with [facility] for surgery vs MICU placement @1015. Spoke with Dr. Platt of [facility] SICU, accepts for transfer, Discussed with our surgeon Dr. Marie and Anesthesia- our surgery team would have to be called in and delay of care for this would be more significant than just traveling to [facility] as the patient is already on EMS stretcher with EMS crew present. Idania departs @ 1033 Disposition of Cardiorenal Syndrome with Renal Failure, Acute Hypotension, Sepsis. Patient verbalized understanding of the plan and engaged in shared decision making. present for discussion. Medical Records Medical records reviewed: Yes I reviewed the patient's medical records. Imaging Data Radiologic Study: My impression: CARDIOMEGALY, PULMONARY EDEMA, NO FOCAL PNA by my read. Disagree with vRAD. Radiologist's impression: Exam: XR Chest Exam date and time: 07/19/2023 8:24 AM Age: 67 years old Clinical indication: Other: Hypoxia, chf, sepsis TECHNIQUE: Imaging protocol: Radiologic exam of the chest. Views: 1 view. COMPARISON: No relevant prior studies available. FINDINGS: Tubes, catheters and devices: Unknown device overlies the left chest Lungs: Unremarkable. No consolidation. . Pleural spaces: Unremarkable. No pleural effusion. No pneumothorax. Heart/Mediastinum: Cardiomegaly . No congestive heart failure Bones/joints: Unremarkable. IMPRESSION: No acute process Dictated and Authenticated by: Salima López MD. Ordering:ALEX Davis MD Radiologic Study #2: Attestation: I personally reviewed and interpreted this imaging study as follows: Imaging: CT Scan Radiologist's impression: Exam(s) Addendum created by Salima López MD on 07/19/2023 10:16:24 AM EDT: THIS REPORT CONTAINS FINDINGS THAT MAY BE CRITICAL TO PATIENT CARE. The findings were verbally communicated via telephone conference with RYAN ALEJO at 10:16 AM EDT on 07/19/2023. The findings were acknowledged and understood. Initial report created on 07/19/2023 10:15:14 AM EDT: PROCEDURE INFORMATION: Exam: CT Abdomen And Pelvis With Contrast Exam date and time: 07/19/2023 9:29 AM Age: 67 years old Clinical indication: Other: Sepsis, infection search TECHNIQUE: Imaging protocol: Computed tomography of the abdomen and pelvis with contrast. Radiation optimization: All CT scans at this facility use at least one of these dose optimization techniques: automated exposure control; mA and/or kV adjustment per patient size (includes targeted exams where dose is matched to clinical indication); or iterative reconstruction. Contrast material: OMNI 350; Contrast volume: 100 ml; Contrast route: INTRAVENOUS (IV); COMPARISON: CR XR PORTABLE CHEST AP 07/19/2023 8:24 AM FINDINGS: Lungs: Opacities in the lower lobes may represent atelectasis or pneumonia. Liver: Lobulated liver consistent with cirrhosis Gallbladder and bile ducts: The gallbladder is distended 15 cm. Possible gallstones in the gallbladder. Series 4, image 36.. Pancreas: Normal. No ductal dilation. Spleen: Normal. No splenomegaly. Adrenal glands: Normal. No mass. Kidneys and ureters: Bilateral renal atrophy Stomach and bowel: Unremarkable. No obstruction. No mucosal thickening. Appendix: No evidence of appendicitis. Intraperitoneal space: The patient is too large for the gantry. The anterior aspect of the abdomen and pelvis are not included on these images . Vasculature: Unremarkable. No abdominal aortic aneurysm. Lymph nodes: Unremarkable. No enlarged lymph nodes. Urinary bladder: Unremarkable as visualized. Reproductive: Unremarkable as visualized. Bones/joints: Unremarkable. No acute fracture. Soft tissues: Linear collections of air in the right groin consistent with necrotizing fasciitis (series 4, image 113). IMPRESSION: 1. Linear collections of air in the right groin consistent with necrotizing fasciitis (series 4, image 113). 2. The patient is too large for the gantry. The anterior aspect of the abdomen and pelvis are not included on these images . 3. Opacities in the lower lobes may represent atelectasis or pneumonia. 4. The gallbladder is distended 15 cm. Possible gallstones in the gallbladder. Series 4, image 36.. Dictated and Authenticated by: Salima López MD. Ordering:ALEX Davis MD Lab Data Lab results reviewed: Yes I reviewed the patient's lab results. Labs: 07/19/23 08:00 Blood Blood Culture - Pending 07/19/23 08:06 Blood Blood Culture - Pending Laboratory Tests Range/Units 07/19/23 07/19/23 07/19/23 08:00 08:00 08:00 WBC (4.4-10.8) 10^3/uL 24.87 H RBC (4.36-5.78) 10^6/uL 4.01 L Hgb (13.5-17.5) g/dL 12.2 L Hct (40.0-50.0) % 37.2 L MCV (80-95) fL 93 MCH (27.0-33.0) pg 30.4 MCHC (32.0-36.0) % 32.8 RDW (11.8-14.1) % 15.9 H Plt Count (130-400) 10^3/uL 152 MPV (8.0-11.0) fL 9.8 Immature Gran % 1.6 Neutrophils % 87.0 Lymphocytes % 3.6 Monocytes % 7.4 Eosinophils % 0.1 Basophils % 0.3 Nucleated RBC % (0.0-0.3) % 0.0 Absolute Neutrophils (1.2-6.7) 10^3/uL 21.64 H Absolute Lymphocytes (1.2-3.4) 10^3/uL 0.90 L Absolute Monocytes (0.1-0.8) 10^3/uL 1.84 H Absolute Eosinophils (0.0-0.7) 10^3/uL 0.02 Absolute Basophils (0.0-0.2) 10^3/uL 0.07 RBC Morphology Normal ESR (0-20) mm/hr 62 H VBG pH (7.31-7.41) 7.30 L VBG pCO2 (41-51) mmHg 52 H VBG pO2 mmHg 36 VBG HCO3 (23-28) mmol/L 26 VBG Total CO2 (24-29) mmol/L 24 VBG O2 Saturation % 66 VBG Base Excess (-2-3) mmol/L -1 VBG Lactate (0.6-1.4) mmol/L 1.8 H Sodium (136-145) mmol/L 131 L Potassium (3.5-5.1) mmol/L 4.9 Chloride (98-107) mmol/L 92 L Carbon Dioxide (21.0-32.0) mmol/L 25.3 Anion Gap (3-11) mmol/L 13.7 H BUN (7-18) mg/dL 104 H* Creatinine (0.70-1.30) mg/dL 4.4 H* Est GFR (CKD-EPI 2020) (mL/min/1.73m2) 14.03 Glucose (74-106) mg/dL 162 H Calcium (8.5-10.1) mg/dL 8.9 Magnesium (1.8-2.4) mg/dL 2.1 Total Bilirubin (0.2-1.0) mg/dL 1.2 H Cancelled Conjugated Bilirubin (0.0-0.2) mg/dL 0.7 H Cancelled AST (15-37) U/L 25 ALT (16-63) U/L Alkaline Phosphatase (46-116) U/L Ammonia (11-32) umol/L Creatine Kinase (39-308) U/L Troponin I (< or =60) ng/L C-Reactive Protein (<or=0.5) mg/dL NT-Pro-B Natriuret Pep (<300) pg/mL Total Protein (6.4-8.2) g/dL Albumin (3.4-5.0) g/dL Lipase (16-77) U/L Procalcitonin ng/mL Urine Color (Yellow) Urine Clarity (Clear) Urine pH (5-8) Ur Specific Blanchard (1.005-1.025) Urine Protein (Neg-Trace) mg/dL Urine Ketones (Negative) mg/dL Urine Blood (Negative) Urine Nitrite (Negative) Urine Bilirubin (Negative) Urine Urobilinogen (Up to 0.2) mg/dL Ur Leukocyte Esterase (Negative) Urine RBC (0-2) HPF Urine WBC (0-5) HPF Ur Epithelial Cells (Negative) HPF Urine Crystals (Negative) HPF Urine Bacteria (Negative) HPF Urine Casts (Negative) LPF Urine Mucus (Negative) Urine Other (Negative) Ur Culture Indicated? Urine Glucose (Negative) mg/dL COVID-19 Source SARS-CoV-2 (PCR) (Negative) Influenza Type A (PCR) (Negative) Influenza Type B (PCR) (Negative) RSV (PCR) (Negative) Range/Units 07/19/23 07/19/23 07/19/23 08:00 08:00 08:00 WBC (4.4-10.8) 10^3/uL RBC (4.36-5.78) 10^6/uL Hgb (13.5-17.5) g/dL Hct (40.0-50.0) % MCV (80-95) fL MCH (27.0-33.0) pg MCHC (32.0-36.0) % RDW (11.8-14.1) % Plt Count (130-400) 10^3/uL MPV (8.0-11.0) fL Immature Gran % Neutrophils % Lymphocytes % Monocytes % Eosinophils % Basophils % Nucleated RBC % (0.0-0.3) % Absolute Neutrophils (1.2-6.7) 10^3/uL Absolute Lymphocytes (1.2-3.4) 10^3/uL Absolute Monocytes (0.1-0.8) 10^3/uL Absolute Eosinophils (0.0-0.7) 10^3/uL Absolute Basophils (0.0-0.2) 10^3/uL RBC Morphology ESR (0-20) mm/hr VBG pH (7.31-7.41) VBG pCO2 (41-51) mmHg VBG pO2 mmHg VBG HCO3 (23-28) mmol/L VBG Total CO2 (24-29) mmol/L VBG O2 Saturation % VBG Base Excess (-2-3) mmol/L VBG Lactate (0.6-1.4) mmol/L Sodium (136-145) mmol/L Potassium (3.5-5.1) mmol/L Chloride (98-107) mmol/L Carbon Dioxide (21.0-32.0) mmol/L Anion Gap (3-11) mmol/L BUN (7-18) mg/dL Creatinine (0.70-1.30) mg/dL Est GFR (CKD-EPI 2020) (mL/min/1.73m2) Glucose (74-106) mg/dL Calcium (8.5-10.1) mg/dL Magnesium (1.8-2.4) mg/dL Total Bilirubin (0.2-1.0) mg/dL Conjugated Bilirubin (0.0-0.2) mg/dL AST (15-37) U/L Cancelled ALT (16-63) U/L 41 Cancelled Alkaline Phosphatase (46-116) U/L 162 H Cancelled Ammonia (11-32) umol/L Creatine Kinase (39-308) U/L 67 Troponin I (< or =60) ng/L 52 C-Reactive Protein (<or=0.5) mg/dL > 25.00 H NT-Pro-B Natriuret Pep (<300) pg/mL 6933 H Total Protein (6.4-8.2) g/dL 6.8 Albumin (3.4-5.0) g/dL Lipase (16-77) U/L Procalcitonin ng/mL Urine Color (Yellow) Urine Clarity (Clear) Urine pH (5-8) Ur Specific Blanchard (1.005-1.025) Urine Protein (Neg-Trace) mg/dL Urine Ketones (Negative) mg/dL Urine Blood (Negative) Urine Nitrite (Negative) Urine Bilirubin (Negative) Urine Urobilinogen (Up to 0.2) mg/dL Ur Leukocyte Esterase (Negative) Urine RBC (0-2) HPF Urine WBC (0-5) HPF Ur Epithelial Cells (Negative) HPF Urine Crystals (Negative) HPF Urine Bacteria (Negative) HPF Urine Casts (Negative) LPF Urine Mucus (Negative) Urine Other (Negative) Ur Culture Indicated? Urine Glucose (Negative) mg/dL COVID-19 Source SARS-CoV-2 (PCR) (Negative) Influenza Type A (PCR) (Negative) Influenza Type B (PCR) (Negative) RSV (PCR) (Negative) Range/Units 07/19/23 07/19/23 07/19/23 08:00 08:00 08:20 WBC (4.4-10.8) 10^3/uL RBC (4.36-5.78) 10^6/uL Hgb (13.5-17.5) g/dL Hct (40.0-50.0) % MCV (80-95) fL MCH (27.0-33.0) pg MCHC (32.0-36.0) % RDW (11.8-14.1) % Plt Count (130-400) 10^3/uL MPV (8.0-11.0) fL Immature Gran % Neutrophils % Lymphocytes % Monocytes % Eosinophils % Basophils % Nucleated RBC % (0.0-0.3) % Absolute Neutrophils (1.2-6.7) 10^3/uL Absolute Lymphocytes (1.2-3.4) 10^3/uL Absolute Monocytes (0.1-0.8) 10^3/uL Absolute Eosinophils (0.0-0.7) 10^3/uL Absolute Basophils (0.0-0.2) 10^3/uL RBC Morphology ESR (0-20) mm/hr VBG pH (7.31-7.41) VBG pCO2 (41-51) mmHg VBG pO2 mmHg VBG HCO3 (23-28) mmol/L VBG Total CO2 (24-29) mmol/L VBG O2 Saturation % VBG Base Excess (-2-3) mmol/L VBG Lactate (0.6-1.4) mmol/L Sodium (136-145) mmol/L Potassium (3.5-5.1) mmol/L Chloride (98-107) mmol/L Carbon Dioxide (21.0-32.0) mmol/L Anion Gap (3-11) mmol/L BUN (7-18) mg/dL Creatinine (0.70-1.30) mg/dL Est GFR (CKD-EPI 2020) (mL/min/1.73m2) Glucose (74-106) mg/dL Calcium (8.5-10.1) mg/dL Magnesium (1.8-2.4) mg/dL Total Bilirubin (0.2-1.0) mg/dL Conjugated Bilirubin (0.0-0.2) mg/dL AST (15-37) U/L ALT (16-63) U/L Alkaline Phosphatase (46-116) U/L Ammonia (11-32) umol/L < 10 L Creatine Kinase (39-308) U/L Troponin I (< or =60) ng/L C-Reactive Protein (<or=0.5) mg/dL NT-Pro-B Natriuret Pep (<300) pg/mL Total Protein (6.4-8.2) g/dL Cancelled Albumin (3.4-5.0) g/dL 2.4 L Cancelled Lipase (16-77) U/L 22 Procalcitonin ng/mL 1.8 Urine Color (Yellow) Yellow Urine Clarity (Clear) Clear Urine pH (5-8) 5.0 Ur Specific Blanchard (1.005-1.025) 1.020 Urine Protein (Neg-Trace) mg/dL 30 H Urine Ketones (Negative) mg/dL Trace H Urine Blood (Negative) Negative Urine Nitrite (Negative) Negative Urine Bilirubin (Negative) Small H Urine Urobilinogen (Up to 0.2) mg/dL 1.0 H Ur Leukocyte Esterase (Negative) Negative Urine RBC (0-2) HPF 0-2 Urine WBC (0-5) HPF 0-2 Ur Epithelial Cells (Negative) HPF Few Urine Crystals (Negative) HPF Negative Urine Bacteria (Negative) HPF Rare Urine Casts (Negative) LPF Negative Urine Mucus (Negative) Moderate Urine Other (Negative) Few Transitional Ur Culture Indicated? No Urine Glucose (Negative) mg/dL Negative COVID-19 Source SARS-CoV-2 (PCR) (Negative) Influenza Type A (PCR) (Negative) Influenza Type B (PCR) (Negative) RSV (PCR) (Negative) Range/Units 07/19/23 09:02 WBC (4.4-10.8) 10^3/uL RBC (4.36-5.78) 10^6/uL Hgb (13.5-17.5) g/dL Hct (40.0-50.0) % MCV (80-95) fL MCH (27.0-33.0) pg MCHC (32.0-36.0) % RDW (11.8-14.1) % Plt Count (130-400) 10^3/uL MPV (8.0-11.0) fL Immature Gran % Neutrophils % Lymphocytes % Monocytes % Eosinophils % Basophils % Nucleated RBC % (0.0-0.3) % Absolute Neutrophils (1.2-6.7) 10^3/uL Absolute Lymphocytes (1.2-3.4) 10^3/uL Absolute Monocytes (0.1-0.8) 10^3/uL Absolute Eosinophils (0.0-0.7) 10^3/uL Absolute Basophils (0.0-0.2) 10^3/uL RBC Morphology ESR (0-20) mm/hr VBG pH (7.31-7.41) VBG pCO2 (41-51) mmHg VBG pO2 mmHg VBG HCO3 (23-28) mmol/L VBG Total CO2 (24-29) mmol/L VBG O2 Saturation % VBG Base Excess (-2-3) mmol/L VBG Lactate (0.6-1.4) mmol/L Sodium (136-145) mmol/L Potassium (3.5-5.1) mmol/L Chloride (98-107) mmol/L Carbon Dioxide (21.0-32.0) mmol/L Anion Gap (3-11) mmol/L BUN (7-18) mg/dL Creatinine (0.70-1.30) mg/dL Est GFR (CKD-EPI 2020) (mL/min/1.73m2) Glucose (74-106) mg/dL Calcium (8.5-10.1) mg/dL Magnesium (1.8-2.4) mg/dL Total Bilirubin (0.2-1.0) mg/dL Conjugated Bilirubin (0.0-0.2) mg/dL AST (15-37) U/L ALT (16-63) U/L Alkaline Phosphatase (46-116) U/L Ammonia (11-32) umol/L Creatine Kinase (39-308) U/L Troponin I (< or =60) ng/L C-Reactive Protein (<or=0.5) mg/dL NT-Pro-B Natriuret Pep (<300) pg/mL Total Protein (6.4-8.2) g/dL Albumin (3.4-5.0) g/dL Lipase (16-77) U/L Procalcitonin ng/mL Urine Color (Yellow) Urine Clarity (Clear) Urine pH (5-8) Ur Specific [place]ard (1.005-1.025) Urine Protein (Neg-Trace) mg/dL Urine Ketones (Negative) mg/dL Urine Blood (Negative) Urine Nitrite (Negative) Urine Bilirubin (Negative) Urine Urobilinogen (Up to 0.2) mg/dL Ur Leukocyte Esterase (Negative) Urine RBC (0-2) HPF Urine WBC (0-5) HPF Ur Epithelial Cells (Negative) HPF Urine Crystals (Negative) HPF Urine Bacteria (Negative) HPF Urine Casts (Negative) LPF Urine Mucus (Negative) Urine Other (Negative) Ur Culture Indicated? Urine Glucose (Negative) mg/dL COVID-19 Source Nasopharynx SARS-CoV-2 (PCR) (Negative) Negative Influenza Type A (PCR) (Negative) Negative Influenza Type B (PCR) (Negative) Negative RSV (PCR) (Negative) Negative Quality:SDOH Health Related Social Needs: No Data to Display PFSH All Active Problems (Updated 07/19/23 @ 09:44 by SUNDAR Johnson) Sepsis (Acute) Acute hypotension (Acute) Cardiorenal syndrome with renal failure (Acute) Hearing difficulty (Acute) Tinnitus (Acute) Cerumen impaction (Acute) Neuropathy (Acute) Lower extremity edema (Acute) Medical History (Updated 07/19/23 @ 09:44 by SUNDAR Johnson) Wound infection Plaque psoriasis Thrush Dyspnea on exertion Headache Lateral epicondylitis Rotator cuff syndrome CHF (congestive heart failure) Edema Hip pain Hypoxia Arthralgia Vertigo Obesity Anemia Renal insufficiency Sore throat Vitamin D deficiency Cardiomyopathy Hypertension Tubular adenoma of colon Hypogonadism male Psoriasis Osteoarthritis Ventral incisional hernia Hypothyroidism Hyperlipidemia Depression Foot ulceration Erectile dysfunction B12 deficiency Chronic pain Morbid obesity Gout Chronic painful diabetic neuropathy Oral candidiasis Lumbar radiculopathy Diabetes mellitus, type II, insulin dependent COURTNEY (obstructive sleep apnea) Surgical History Colostomy reveresal Colonoscopy - MAC Colectomy Family History (Updated 01/27/19 @ 15:06 by Ivan Weir MD) Mother Diabetes Essential hypertension AAA (abdominal aortic aneurysm) Kidney disease Heart problem COPD (chronic obstructive pulmonary disease) Father Pancreatic cancer Diabetes Angina pectoris Maternal Uncle Leukemia Maternal Grandmother Heart problem Other Brain aneurysm Social History Smoking/Tobacco Use Status: Former Tobacco Use Quit Date: 04/27/94 Pack-years: 24 Tobacco: How many years used: 16 Smoking risk assessment performed?: Yes Alcohol Intake: current Alcohol Intake frequency: holidays/special occasions only Drug use: Never Substance use type: does not use Housing: house Do you feel safe at home: Yes Do you feel safe in your relationship?: Yes Additional Social history: arrived soon after, supportive to pt's needs.
[2023-07-19 08:22] LABS: BE (Venous) -1 mmol/L (-2-3); HCO3 (Venous) 26 mmol/L (23-28); O2 Sat (Venous) 66 %; TCO2 (Venous) 24 mmol/L (24-29); pCO2 (Venous) 52 mmHg (41-51); pO2 (Venous) 36 mmHg
[2023-07-19 08:23] LABS: Lactate 1.8 mmol/L (0.6-1.4)
[2023-07-19 08:26] LABS: Abs Immature Grans 0.39 10^3/uL (0.0-0.06); Absolute Basophil Count 0.07 10^3/uL (0.0-0.2); Absolute Eosinophil Count 0.02 10^3/uL (0.0-0.7); Basophils % 0.3; Eosinophils % 0.1; HCT 37.2 % (40.0-50.0); HGB 12.2 g/dL (13.5-17.5); Immature Grans % 1.6; Lymphocytes % 3.6; MCH 30.4 pg (27.0-33.0); MCHC 32.8 % (32.0-36.0); MCV 93 fL (80-95); MPV 9.8 fL (8.0-11.0); Monocytes % 7.4; Platelet Count 152 10^3/uL (130-400); RBC 4.01 10^6/uL (4.36-5.78); RDW 15.9 % (11.8-14.1); RDW-SD 54.1 fL; WBC 24.87 10^3/uL (4.4-10.8)
[2023-07-19] MEDS: ACETAMINOPHEN 1,000 MG/100 ML BTL 400 MG IVPB (08:27)
[2023-07-19 08:28] LABS: Bilirubin Small (Negative); Blood Negative (Negative); Clarity Clear (Clear); Glucose Negative (Negative); Ketones Trace mg/dL (Negative); Leukocyte Esterase Negative (Negative); Nitrite Negative (Negative)
[2023-07-19] MEDS: Normal Saline 250 ML IV (08:28)
[2023-07-19 08:29] LABS: Absolute Monocyte Count 1.84 10^3/uL (0.1-0.8); Absolute Neutrophil Count 21.64 10^3/uL (1.2-6.7); ESR 62 mm/hr (0-20)
--- NOTE | 2023-07-19 08:32 | DI.VRAD_ITS ---
PROCEDURE INFORMATION: Exam: XR Chest Exam date and time: 07/19/2023 8:24 AM Age: 67 years old Clinical indication: Other: Hypoxia, chf, sepsis TECHNIQUE: Imaging protocol: Radiologic exam of the chest. Views: 1 view. COMPARISON: No relevant prior studies available. FINDINGS: Tubes, catheters and devices: Unknown device overlies the left chest Lungs: Unremarkable. No consolidation. . Pleural spaces: Unremarkable. No pleural effusion. No pneumothorax. Heart/Mediastinum: Cardiomegaly . No congestive heart failure Bones/joints: Unremarkable. IMPRESSION: No acute process Dictated and Authenticated by: Salima López MD. Ordering:ALEX Davis MD
[2023-07-19 08:35] LABS: Diff Comment Diff Reviewed; RBC Morphology Normal
[2023-07-19] MEDS: Furosemide 40 MG/4 ML VIAL IVP (08:35)
[2023-07-19 08:39] LABS: Bacteria Rare HPF (Negative); Crystals Negative HPF (Negative); Epithelial Cells Few HPF (Negative); Mucus Moderate (Negative); Other Cells Few Transitional (Negative); RBC 0-2 HPF (0-2); WBC 0-2 HPF (0-5)
[2023-07-19] MEDS: Norepinephrine in D5W 8 MG/250 ML BAG 9.375 MG IV (08:39)
[2023-07-19 08:40] LABS: C & S Indicated? No; Casts Negative LPF (Negative)
[2023-07-19 08:42] LABS: Ammonia < 10 umol/L (11-32)
[2023-07-19 08:48] LABS: ALT 41 U/L (16-63); AST 25 U/L (15-37); Albumin 2.4 g/dL (3.4-5.0); Alkaline Phosphatase 162 U/L (46-116); Anion Gap 13.7 mmol/L (3-11); Bilirubin, Total 1.2 mg/dL (0.2-1.0); CO2 25.3 mmol/L (21.0-32.0); Calcium 8.9 mg/dL (8.5-10.1); Chloride 92 mmol/L (98-107); Creatine Kinase 67 U/L (39-308); Estimated GFR 14.03 (mL/min/1.73m2); Glucose 162 mg/dL (74-106); Lipase 22 U/L (16-77); Magnesium 2.1 mg/dL (1.8-2.4); NT-proBNP 6933 pg/mL (<300); Potassium 4.9 mmol/L (3.5-5.1); Sodium 131 mmol/L (136-145); Total Protein 6.8 g/dL (6.4-8.2); Troponin I 52 ng/L (< or =60)
[2023-07-19 08:50] LABS: BUN 104 mg/dL (7-18); CREATININE 4.4 mg/dL (0.70-1.30)
[2023-07-19 08:57] LABS: C-Reactive Protein > 25.00 mg/dL (<or=0.5)
--- NOTE | 2023-07-19 09:03 | ED.PROG_ITS ---
Date of service: 07/19/23 Time of Service: 17:22 Medical Decision Making Patient evaluated in conjunction with the PA. A [id number] evaluation was provided by me secondary to medical complexity and critical illness. The patient presented with altered mental status, hypotension. Patient has known cardiomyopathy and poor EF. It was felt that resuscitation with IV fluids would exacerbate this and after a small amount of IV fluids were given, we switched to pressors. Cultures and broad-spectrum antibiotics were initiated. 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 In collaboration with the vocational psychologist at [facility], we elected to go ahead and scan the patient with IV contrast given that risks outweigh the benefits. CT scan did confirm gas producing infection in the pelvis. Lab work concerning for multiorgan system dysfunction. Patient warm with peripheral pulses noted, so I doubt cardiogenic shock. Patient transferred to [facility] for further manage CRITICAL CARE Upon my evaluation, this patient had a high probability of imminent or life- threatening deterioration due to cardiorenal syndrome, hepatorenal syndrome, renal failure, sepsis, hypotension, Lan's gangrene, necrotizing fasciitis which required my direct attention, intervention, and personal management. I have personally provided 38 minutes of critical care time exclusive of time spent on separately billable procedures. Time includes review of laboratory data, radiology results, discussion with consultants, and monitoring for potential decompensation. Interventions were performed as documented above Quality:[facility] Health Related Social Needs: No Data to Display Discharge Plan Disposition Patient Disposition: Transfer-Acute Inpatient Care Specific Acute Inpt Facility: [facility] Condition: Critical Discharge Details Clinical Impression: Cardiorenal syndrome with renal failure, Acute hypotension, Sepsis Primary Care Provider: Goldie Gutierrez V ED Provider: Ryan Santana Home Meds and New Rx's Prescriptions: No Action metoprolol succinate 100 mg tablet extended release 24 hr 100 mg PO DAILY Qty: 90 3RF tramadol 50 mg tablet 50 mg PO BID PRN losartan 50 mg tablet 50 mg PO DAILY Qty: 90 3RF fluconazole 100 mg tablet 100 mg PO DAILY PRN docusate sodium [Colace] 100 mg capsule 100 mg PO BID PRN Metamucil 3.4 gram/5.4 gram powder 1 tbsp PO DAILY PRN Rx Instructions: mix into at least 8 oz of water or juice before administering Trulicity 3 mg/0.5 mL pen injector 3 mg subcut QWEEK duloxetine 30 mg capsule,delayed release(DR/EC) 60 mg PO DAILY meclizine 25 mg tablet,chewable 25 mg PO DAILY PRN allopurinol 300 MG tablet 300 mg PO DAILY clobetasol-emollient 15 GM cream 15 gm Topical DAILY levothyroxine 200 MCG tablet 200 mcg PO DAILY acetaminophen [Tylenol] 325 mg tablet 650 mg PO BID aspirin [Aspir-81] 81 MG tablet,delayed release (DR/EC) 81 mg PO DAILY gabapentin 600 MG tablet 600 mg PO TID pravastatin 40 MG tablet 40 mg PO HS amitriptyline 25 MG tablet 25 mg PO HS diclofenac sodium [Voltaren] 1 % gel 2 gm Topical QID PRN clotrimazole 1 % solution 1 applic Topical BID PRN ergocalciferol (vitamin D2) 1,250 mcg (50,000 unit) capsule 1,250 mcg PO .2x weekly furosemide 80 mg tablet 80 mg PO DAILY Jardiance 10 mg tablet 10 mg PO DAILY Humira 40 mg/0.8 mL syringe kit 40 mg subcut Q14D spironolactone 25 mg tablet 25 mg PO DAILY Discharge Data Discharge Date/Time-TO BE ENTERED AT DEPARTURE: 07/19/23 10:52
[2023-07-19] MEDS: VANCOMYCIN/WATER (PEG) 1.5 GM/300 ML BAG IVPB (09:04)
[2023-07-19] MEDS: PIPERACILLIN/TAZO 3.375 GM in Normal Saline 50 ML IVPB (09:04)
[2023-07-19] MEDS: Ondansetron 4 MG/2 ML VIAL (09:15)
--- NOTE | 2023-07-19 09:15 | DI.CT_ITS ---
Exam(s) CT ABDOMEN PELVIS W EXAM: CT ABDOMEN PELVIS W CLINICAL HISTORY: sepsis, infection search. TECHNIQUE: Imaging Protocol: Axial computed tomography images with coronal and sagittal reformatted images were created and reviewed CONTRAST MATERIAL: Intravenous: Omnipaque 350 Contrast volume:100 ml Oral: no COMPARISON: CR,XR XR PORTABLE CHEST AP from 07/19/2023 FINDINGS: ABDOMEN and PELVIS: Exam is limited by patient body habitus. Portions of the abdominal wall are not included in the fiel d of view, including portions of bowel. Lung Bases: Bibasilar atelectasis. Liver: Normal density. No measurable mass. Gallbladder and biliary tract: Question of small amount of layering tiny stones versus sludge. No wa ll thickening or biliary dilatation. Pancreas: Normal density. No abnormal calcifications or inflammatory process. No evidence of mass. Spleen: Normal. Kidneys: Left kidney somewhat atrophic. No radiodense stones. No obstructive uropathy. No suspicious masses seen. Adrenal glands: No masses seen. Vasculature: Abdominal aorta non-dilated. Atherosclerotic changes. Soft tissues: Abnormal gas collection seen in the right groin region. Edema in the fat of the lower abdominal pannus. Some skin thickening. Bilateral hydroceles. No drainable abscess. Bladder: Madison catheter within decompressed urinary bladder. Bowel: No obstruction. No bowel wall thickening. Appendix normal. Peritoneal cavity: No ascites. No focal collection or mesenteric inflammatory response. Bones: Unremarkable for age. Reproductive organs: Within normal limits. Lymph nodes: Unremarkable. IMPRESSION:: Abnormal air in the right groin region consistent with necrotizing fasciitis. No evide nce of drainable abscess. RADIATION DOSE DELIVERED: Total DLP DATA REPOSITORY: All CT scans at this facility are submitted to the National Radiology Data Registry (NRDR) Dose Index Registry (DIR) with the [employer] (A[employer]). RADIATION OPTIMIZATION: All CT scans at this facility use at least one of these dose optimization te chniques: automated exposure control; mA and/or kV adjustment per patient size (includes targeted exa ms where dose is matched to clinical indication); or iterative reconstruction.
--- NOTE | 2023-07-19 09:15 | RT.EKG_ITS ---
APPROVED REPORT Exam: Resting ECG Reason for Exam: hypotension Patient Location: E HR:104 bpm ECG Measurements Heart Rate 104 AXIS NM 171 P 33 QRSd 127 QRS 10 QT 391 T 108 QTc 515 Conclusion Sinus tachycardia 104 lbbb no stemi
[2023-07-19] MEDS: Ketorolac 15 MG/ML VIAL IVP (09:23)
[2023-07-19 09:33] LABS: Procalcitonin 1.8 ng/mL
[2023-07-19] MEDS: Normal Saline - Diluent 50 ML VIAL IJ (09:55)
[2023-07-19] MEDS: Omnipaque 350 MG/ML 50 ML BTL IJ ×2 (09:56→09:57)
[2023-07-19 09:59] LABS: COVID-19 PCR Negative (Negative); Influenza A PCR Negative (Negative); Influenza B PCR Negative (Negative); RSV PCR Negative (Negative)
[2023-07-19 09:59] LABS: Bilirubin, Direct 0.7 mg/dL (0.0-0.2)
[2023-07-19 10:01] LABS: Source Nasopharynx
[2023-07-19] MEDS: CLINDAMYCIN 900 MG/50 ML BAG 50 MG IVPB (10:01)
--- NOTE | 2023-07-19 10:15 | DI.VRAD_ITS ---
Addendum created by Salima López MD on 07/19/2023 10:16:24 AM EDT: THIS REPORT CONTAINS FINDINGS THAT MAY BE CRITICAL TO PATIENT CARE. The findings were verbally communicated via telephone conference with ZEINA ALEJO at 10:16 AM EDT on 07/19/2023. The findings were acknowledged and understood. Initial report created on 07/19/2023 10:15:14 AM EDT: PROCEDURE INFORMATION: Exam: CT Abdomen And Pelvis With Contrast Exam date and time: 07/19/2023 9:29 AM Age: 67 years old Clinical indication: Other: Sepsis, infection search TECHNIQUE: Imaging protocol: Computed tomography of the abdomen and pelvis with contrast. Radiation optimization: All CT scans at this facility use at least one of these dose optimization techniques: automated exposure control; mA and/or kV adjustment per patient size (includes targeted exams where dose is matched to clinical indication); or iterative reconstruction. Contrast material: OMNI 350; Contrast volume: 100 ml; Contrast route: INTRAVENOUS (IV); COMPARISON: CR XR PORTABLE CHEST AP 07/19/2023 8:24 AM FINDINGS: Lungs: Opacities in the lower lobes may represent atelectasis or pneumonia. Liver: Lobulated liver consistent with cirrhosis Gallbladder and bile ducts: The gallbladder is distended 15 cm. Possible gallstones in the gallbladder. Series 4, image 36.. Pancreas: Normal. No ductal dilation. Spleen: Normal. No splenomegaly. Adrenal glands: Normal. No mass. Kidneys and ureters: Bilateral renal atrophy Stomach and bowel: Unremarkable. No obstruction. No mucosal thickening. Appendix: No evidence of appendicitis. Intraperitoneal space: The patient is too large for the gantry. The anterior aspect of the abdomen and pelvis are not included on these images . Vasculature: Unremarkable. No abdominal aortic aneurysm. Lymph nodes: Unremarkable. No enlarged lymph nodes. Urinary bladder: Unremarkable as visualized. Reproductive: Unremarkable as visualized. Bones/joints: Unremarkable. No acute fracture. Soft tissues: Linear collections of air in the right groin consistent with necrotizing fasciitis (series 4, image 113). IMPRESSION: 1. Linear collections of air in the right groin consistent with necrotizing fasciitis (series 4, image 113). 2. The patient is too large for the gantry. The anterior aspect of the abdomen and pelvis are not included on these images . 3. Opacities in the lower lobes may represent atelectasis or pneumonia. 4. The gallbladder is distended 15 cm. Possible gallstones in the gallbladder. Series 4, image 36.. Dictated and Authenticated by: Salima López MD. Ordering:ALEX Davis MD
== END 2023-07-19 10:52 | disposition short-term general hospital (02) ==
LOC: ER 10:05
PROVIDERS: Emergency Provider Physician Assistant; PCP Family Medicine
DX: I13.0 Hypertensive heart and chronic kidney disease with heart failure and stage 1 through stage 4 chronic kidney disease, or unspecified chronic kidney disease (principal); N18.9 Chronic kidney disease, unspecified; N17.9 Acute kidney failure, unspecified; A41.9 Sepsis, unspecified organism; E11.9 Type 2 diabetes mellitus without complications; E66.01 Morbid (severe) obesity due to excess calories; Z79.82 Long term (current) use of aspirin; Z79.85 Long-term (current) use of injectable non-insulin antidiabetic drugs; Z99.81 Dependence on supplemental oxygen; Z87.891 Personal history of nicotine dependence
CPT/HCPCS: 00123; 80053; 80076; 82550; 82805; 83690; 84145; 85652; 87040; 87637; 93005; 96361; 96365; 96367; 96368; 96375; 99285; 71045; 74177; 81003; 81015; 82140; 83605; 83735; 83880; 84484; 85025; 86140; 93010; J0131; J0737; J1885; J1940; J2405; J2543; J3372; Q9967

== ENCOUNTER 2023-08-17 16:39 | Outpatient (REF) | payer MEDICARE, SELFPAY ==
[2023-08-17 17:48] LABS: Abs Immature Grans 0.24 10^3/uL (0.0-0.06); Absolute Basophil Count 0.07 10^3/uL (0.0-0.2); Absolute Eosinophil Count 0.32 10^3/uL (0.0-0.7); Absolute Lymphocyte Count 1.81 10^3/uL (1.2-3.4); Absolute Monocyte Count 0.92 10^3/uL (0.1-0.8); Absolute Neutrophil Count 6.59 10^3/uL (1.2-6.7); Basophils % 0.7; Eosinophils % 3.2; HCT 36.8 % (40.0-50.0); Immature Grans % 2.4; Lymphocytes % 18.2; MCH 29.3 pg (27.0-33.0); MCHC 32.6 % (32.0-36.0); MCV 90 fL (80-95); MPV 9.4 fL (8.0-11.0); Monocytes % 9.2; Neutrophils % 66.3; Platelet Count 259 10^3/uL (130-400); RBC 4.09 10^6/uL (4.36-5.78); RDW 17.1 % (11.8-14.1); WBC 9.95 10^3/uL (4.4-10.8)
[2023-08-17 17:56] LABS: Anion Gap 10.8 mmol/L (3-11); BUN 65 mg/dL (7-18); CO2 30.2 mmol/L (21.0-32.0); CREATININE 1.7 mg/dL (0.70-1.30); Calcium 8.8 mg/dL (8.5-10.1); Chloride 97 mmol/L (98-107); Estimated GFR 43.91 (mL/min/1.73m2); Glucose 246 mg/dL (74-106); Potassium 4.1 mmol/L (3.5-5.1); Sodium 138 mmol/L (136-145)
== END 2023-08-17 16:40 | disposition home or self-care (01) ==
LOC: LBN 16:39
PROVIDERS: PCP Family Medicine; Visit Provider Family Medicine
DX: D64.9 Anemia, unspecified (principal); D70.9 Neutropenia, unspecified
CPT/HCPCS: 80048; 85025

== ENCOUNTER 2023-09-03 03:57 | Outpatient (REF) | payer MEDICARE, SELFPAY ==
[2023-09-03 04:22] LABS: Bilirubin Negative (Negative); Blood Trace-intact (Negative); Clarity Cloudy (Clear); Glucose Negative (Negative); Ketones Negative (Negative); Leukocyte Esterase Moderate (Negative); Nitrite Negative (Negative); Urobilinogen 0.2 mg/dL (Up to 0.2); pH 5.5 (5-8)
[2023-09-03 04:23] LABS: Bacteria Many HPF (Negative); C & S Indicated? C&S Done As Ordered; Crystals Negative HPF (Negative); Epithelial Cells Rare HPF (Negative); Mucus Negative (Negative); WBC >50 HPF (0-5)
== END 2023-09-03 03:58 | disposition home or self-care (01) ==
LOC: LBO 03:57
PROVIDERS: PCP Family Medicine; Visit Provider Family Medicine
DX: N39.0 Urinary tract infection, site not specified (principal); B96.29 Other Escherichia coli [E. coli] as the cause of diseases classified elsewhere
CPT/HCPCS: 87077; 81003; 81015; 87086; 87186

== ENCOUNTER 2023-09-18 18:06 | Outpatient (REF) | payer MEDICARE, SELFPAY ==
[2023-09-18 19:08] LABS: C & S Indicated? Yes; WBC >50 HPF (0-5)
== END 2023-09-18 18:07 | disposition home or self-care (01) ==
LOC: NCHCN 18:06
PROVIDERS: PCP Family Medicine; Visit Provider Family Medicine
DX: N39.0 Urinary tract infection, site not specified (principal)
CPT/HCPCS: 87077; 81015; 87086; 87186

== ENCOUNTER 2023-09-20 04:28 | Inpatient (IN) | payer MEDICARE, SELFPAY ==
[2023-09-20] VITALS (47 sets, daily range): BP systolic 91–196; BP diastolic 35–164; PULSE 93–122; RESP 16–20; TEMP 36–38.1; O2SAT 92–100
--- NOTE | 2023-09-20 04:15 | RT.EKG_ITS ---
APPROVED REPORT Exam: Resting ECG Reason for Exam: weakness Patient Location: E HR:116 bpm ECG Measurements Heart Rate 116 AXIS TN 148 P 58 QRSd 129 QRS 13 QT 347 T 157 QTc 483 Conclusion Sinus tachycardia...rate> 99 Left bundle branch block...QRSd>120, broad/notched R no ST segment or T wave abnormalities to suggest occlusive FL
--- NOTE | 2023-09-20 04:24 | W.ED.GENAD ---
Discharge Plan Disposition Patient Disposition: Admit to [facility] Condition: Serious Discharge Details Chief Complaint: Fever Clinical Impression: Urinary tract infection, Chronic wound, Morbid obesity, Heart failure, Kidney disease, Sepsis Primary Care Provider: Goldie Gutierrez V ED Provider: Leonora Hollingsworth Home Meds and New Rx's Prescriptions: No Action metoprolol succinate 100 mg tablet extended release 24 hr 100 mg PO DAILY Qty: 90 3RF tramadol 50 mg tablet 50 mg PO BID PRN losartan 50 mg tablet 50 mg PO DAILY Qty: 90 3RF fluconazole 100 mg tablet 150 mg PO DAILY PRN docusate sodium [Colace] 100 mg capsule 100 mg PO BID PRN Trulicity 3 mg/0.5 mL pen injector 3 mg subcut QWEEK duloxetine 30 mg capsule,delayed release(DR/EC) 60 mg PO DAILY meclizine 25 mg tablet,chewable 12.5 mg PO TID PRN clobetasol-emollient 15 GM cream 15 gm Topical DAILY levothyroxine 200 MCG tablet 200 mcg PO DAILY acetaminophen [Tylenol] 325 mg tablet 650 mg PO BID aspirin [Aspir-81] 81 MG tablet,delayed release (DR/EC) 81 mg PO DAILY gabapentin 600 MG tablet 600 mg PO TID pravastatin 40 MG tablet 40 mg PO HS amitriptyline 25 MG tablet 25 mg PO HS diclofenac sodium [Voltaren] 1 % gel 2 gm Topical QID PRN ergocalciferol (vitamin D2) 1,250 mcg (50,000 unit) capsule 1,250 mcg PO .2x weekly furosemide 80 mg tablet 80 mg PO DAILY spironolactone 25 mg tablet 25 mg PO DAILY (DME) Dexcom G6 Sensor Device See Rx Instructions .ROUTE Rx Instructions: As directed diphenhydramine HCl [Allergy (diphenhydramine)] 25 mg tablet 25 mg PO Q6H PRN insulin lispro [Humalog U-100 Insulin] 100 unit/mL solution 1 sliding scale dose subcut USEASDIRECTD vitamin A-vitamin C-vit E-min Capsule 1 cap PO DAILY hemp seed oil 1 cap PO/SL DAILY berberrine 1 cap PO/SL BID nystatin 100,000 unit/gram cream 1 applic topical BID cephalexin 500 mg capsule PO DAILY HPI General Mode of arrival: EMS. Date/Time Provider Initiated Documentation: 09/20/23 04:30. Limitations to Documentation: no limitations. Information obtained by: patient, EMS and old records reviewed. HPI Narrative: 67yo M hx T2DM, CHF with EF ~30%, HTN, COPD baseline 3L NC O2, presenting for generalized weakness. For EMS tachycardiac to 110's, BP 100's/40's, BGL 273, on 2L NC O2 which is is baseline. Seen in this ED at the end of June, found to have nec fasc in his abd/groin in the setting of jaurdiance, transferred to [facility] after which he was discharged to [facility], discharged from [facility] recently. Recent COVID infection, released from isolation 3 days ago. Was on abx for a UTI which he completed several days ago but still has symptoms, discussed with his PCP with plan to restart abx however not able to get them until Thursday. Today noted severe weakness, difficulty ambulating (currently ambulates with walker at baseline), shortness of breath with exertion. No shortness of breath at rest. [place] like he was recovering well from COVID, currently no cough or URI symptoms. No chest pain at any point. No groin pain, does not feel similar to when he came to this ED in June. Some urinary discomfort. No fevers at home but has had chills. He is otherwise in his usual state of health with no new rash, numbness, weakness, headache, neck pain, or other concerns. Related Data Home Medications Medication Instructions Recorded Confirmed amitriptyline 25 mg tablet 25 mg PO HS 12/18/12 09/20/23 aspirin 81 mg tablet,delayed 81 mg PO DAILY 12/18/12 09/20/23 release (Aspir-) gabapentin 600 mg tablet 600 mg PO TID 12/18/12 09/20/23 pravastatin 40 mg tablet 40 mg PO HS 12/18/12 09/20/23 clobetasol-emollient 0.05 % 15 gm topical DAILY 08/08/16 09/20/23 topical cream levothyroxine 200 mcg tablet 200 mcg PO DAILY 08/28/17 09/20/23 metoprolol succinate 100 mg 100 mg PO DAILY #90 tabs 03/05/18 09/20/23 tablet,extended release 24 hr tramadol 50 mg tablet 50 mg PO BID PRN 01/26/19 09/20/23 acetaminophen 325 mg tablet 650 mg PO BID 01/27/19 09/20/23 (Tylenol) diclofenac sodium 1 % topical gel 2 gm topical QID PRN 01/27/19 09/20/23 (Voltaren) losartan 50 mg tablet 50 mg PO DAILY blood pressure #90 01/27/19 09/20/23 tabs docusate sodium 100 mg capsule 100 mg PO BID PRN 11/18/22 09/20/23 (Colace) dulaglutide 3 mg/0.5 mL 3 mg subcut QWEEK 11/18/22 09/20/23 subcutaneous pen injector (Trulicity) duloxetine 30 mg capsule,delayed 60 mg PO DAILY 11/18/22 09/20/23 release fluconazole 100 mg tablet 150 mg PO DAILY PRN 11/18/22 09/20/23 meclizine 25 mg chewable tablet 12.5 mg PO TID PRN 11/18/22 09/20/23 ergocalciferol (vitamin D2) 1,250 1,250 mcg PO .2x weekly 07/19/23 09/20/23 mcg (50,000 unit) capsule furosemide 80 mg tablet 80 mg PO DAILY 07/19/23 09/20/23 spironolactone 25 mg tablet 25 mg PO DAILY 07/19/23 09/20/23 berberrine 1 cap PO/SL BID 09/20/23 09/20/23 blood-glucose sensor (Dexcom G6 09/20/23 09/20/23 Sensor device) cephalexin 500 mg capsule mg PO DAILY 09/20/23 diphenhydramine HCl 25 mg tablet 25 mg PO Q6H PRN 09/20/23 09/20/23 (Allergy (diphenhydramine)) hemp seed oil 1 cap PO/SL DAILY 09/20/23 09/20/23 insulin lispro 100 unit/mL 1 sliding scale dose subcut 09/20/23 09/20/23 subcutaneous solution (Humalog USEASDIRECTD U-100 Insulin) nystatin 100,000 unit/gram topical 1 applic topical BID 09/20/23 09/20/23 cream vitamin A-vitamin C-vit E-min 1 cap PO DAILY 09/20/23 09/20/23 capsule Previous Rx's Medication Instructions Recorded metoprolol succinate 100 mg 100 mg PO DAILY #90 tabs 11/09/18 tablet,extended release 24 hr losartan 50 mg tablet 50 mg PO DAILY blood pressure #90 01/27/19 tabs Allergies Allergy/AdvReac Type Severity Reaction Status Date / Time lisinopril [From Prinivil] Allergy Severe itching in Verified 09/20/23 05:38 throat hay fever Allergy Unknown Skin Rash Uncoded 07/19/23 08:54 General MARK: 2 Review of Systems Narrative: see HPI Exam Narrative Exam Narrative: General: Alert, obese, in no acute distress. Head: Normocephalic, atraumatic Neck: Trachea midline, ?Neck supple. ENT: ?MMM.? Cardiac: ?Tachycardiac, regular, no murmurs appreciated Resp: No respiratory distress. Distant breath sounds. Abd: ?Obese, soft, nontender. Dressing in place to right lower abd CDI, small ~2cm wound below without overt signs of infection. Dressing to right groin CDI, wound below about 3-4 cm, rectangular/oval, beefy red granulation tissue, maladorous, brown discharge, no crepitus, not significantly tender. Back: Skin intact. : ?No suprapubic tenderness. Extremities: ?No deformities.? 2+ pitting edema symetric BLE Neurologic: GCS 15. ? Moves all extremities freely Course Lab/Test Results Lab/Test Results: 09/20/23 04:20 Blood Blood Culture - Pending 09/20/23 04:20 Blood Blood Culture - Pending Medical Decision Making 67yo M hx T2DM, CHF with EF ~30%, HTN, COPD baseline 3L NC O2, presenting for generalized weakness. For EMS tachycardiac to 110's, BP 100's/40's, BGL 273, on 2L NC O2 which is is baseline. Seen in this ED at the end of June, found to have nec fasc in his abd/groin in the setting of jaurdiance, transferred to [facility] after which he was discharged to [facility], discharged from [facility] recently. Recent COVID infection, released from isolation 3 days ago. Was on abx for a UTI which he completed several days ago but still has symptoms, discussed with his PCP with plan to restart abx however not able to get them until Thursday. Today noted severe weakness, difficulty ambulating (currently ambulates with walker at baseline), shortness of breath with exertion. No groin pain, does not feel similar to when he came to this ED in June; no current cough, does have some urinary discomfort. Initial vital signs with temp of 38.1, significantly hypertensive which I believe is 2/t to improperly fitted blood pressure cuff. Repeat BP with appropriately sized and positioned cuff 107/51 which fits clinical picture, 2+ radial pulses (not bounding), and he appears to be mentating and perfusing well. Exam concerning for infection on right groin wound though with no pain, tenderness, or crepitus not particularly suggestive of nec fasc. Will give Zosyn/zyvox for initial broad spectrum abx pending identification of source, + clindamycin given possible (though much less likely based on exam) nec fasc. Blood cultures sent. Per [facility] records, pt with cardiomyopathy and decreased EF, will need to proceed very cautiously with fluid resus- as he is not hypotensive and will be receiving some volume from antibiotic infusion, will await labs/additional workup before adding additional IVF. Given 10U short acting insulin for hyperglycemia in the setting of infection/sepsis. Low grade fever + weakness + recent covid + tachycardia also concerning for possible pulmonary embolism; will get CT for PE as well as abd/pelvis to evaluate for abscess/intrabdominal infection/free air. Serious/life threatening differential warrants contrasted scan on emergent basis despite known kidney injury on prior presentation; would scan regardless of Cr level today. -EKG sinus tachycardia, LBBB, no ST segment or T wave abnormalities to suggest occlusive NE. -Labs reviewed as below, CBC with mild leukokcytosis at 14, anemia at 11.0, CMP with hyperglycemia and Cr of 2.0 (pt reports after hospital discharge was told he has CKD3), lactate reassuring at 1.6, procal also reassuring at 0.3, VBG with pH 7.35, mild respiratory acidosis with metabolic compensation, coags normal, BNP elevated at ~2000 improved from prior ED visit here, troponin negative. UA suggestive of UTI. -CT independently reviewed, agree with radiology read below with SQ fat stranding in right inguinal region. Soft tissue gas not excluded however clinically with patient with no pain and reassuring physical exam overall picture not concerning for recurrent nec fasc. LRINEC score 4, low risk. On reassessment he remains non-toxic appearing with normal blood pressure. Favor urinary source for sepsis. Discussed with hospitalist Dr. Cobb and patient accepted to medicine service; awaiting admission orders and transfer to the floor. Imaging Data Radiologic Study: Imaging: CT Scan Radiologist's impression: IMPRESSION: 1. Study limitations as above. 2. Stranding in the subcutaneous fat of the right inguinal region and scrotum. Gas in this area appears to be within skin fold. Cannot exclude soft tissue gas. 3. Thickening of the urinary bladder may be due in part to incomplete distension. Underlying cystitis, muscular hypertrophy, or neoplasm not excluded. Please correlate clinically. 4. Additional findings as above. 5. Additional studies dictated separately. Lab Data Lab results reviewed: Yes I reviewed the patient's lab results. Labs: 09/20/23 05:36 Blood Blood Culture - Pending 09/20/23 05:20 Urine - Reflex from Ua Urine Culture - Pending 09/20/23 05:00 Blood Blood Culture - Pending Laboratory Tests Range/Units 09/20/23 09/20/23 09/20/23 04:50 05:00 05:20 WBC (4.4-10.8) 10^3/uL 13.89 H RBC (4.36-5.78) 10^6/uL 3.80 L Hgb (13.5-17.5) g/dL 11.0 L Hct (40.0-50.0) % 34.7 L MCV (80-95) fL 91 MCH (27.0-33.0) pg 28.9 MCHC (32.0-36.0) % 31.7 L RDW (11.8-14.1) % 17.7 H Plt Count (130-400) 10^3/uL 217 MPV (8.0-11.0) fL 9.3 Immature Gran % % 0.8 Neutrophils % % 83.2 Lymphocytes % % 6.8 Monocytes % % 8.3 Eosinophils % % 0.5 Basophils % % 0.4 Nucleated RBC % (0.0-0.3) % 0.0 Absolute Neutrophils (1.2-6.7) 10^3/uL 11.56 H Absolute Lymphocytes (1.2-3.4) 10^3/uL 0.94 L Absolute Monocytes (0.1-0.8) 10^3/uL 1.15 H Absolute Eosinophils (0.0-0.7) 10^3/uL 0.07 Absolute Basophils (0.0-0.2) 10^3/uL 0.06 PT (9.1-11.1) sec 10.8 INR (0.9-1.1) 1.1 APTT (23.6-32.8) sec 27.8 VBG pH (7.31-7.41) 7.35 VBG pCO2 (41-51) mmHg 56 H VBG pO2 mmHg 29 VBG HCO3 (23-28) mmol/L 31 H VBG Total CO2 (24-29) mmol/L 29 VBG O2 Saturation % 50 VBG Base Excess (-2-3) mmol/L 5 H VBG Lactate (0.6-1.4) mmol/L 1.6 H Sodium (136-145) mmol/L 141 Potassium (3.5-5.1) mmol/L 4.4 Chloride (98-107) mmol/L 100 Carbon Dioxide (21.0-32.0) mmol/L 31.5 Anion Gap (3-11) mmol/L 9.5 BUN (7-18) mg/dL 56 H Creatinine (0.70-1.30) mg/dL 2.0 H Est GFR (CKD-EPI 2020) (mL/min/1.73m2) 36.13 Glucose (74-106) mg/dL 241 H Calcium (8.5-10.1) mg/dL 9.1 Total Bilirubin (0.2-1.0) mg/dL 0.8 AST (15-37) U/L 11 L ALT (16-63) U/L 18 Alkaline Phosphatase (46-116) U/L 106 Troponin I (< or =60) ng/L < 50 NT-Pro-B Natriuret Pep (<300) pg/mL 2207 H Total Protein (6.4-8.2) g/dL 7.1 Albumin (3.4-5.0) g/dL 2.7 L Procalcitonin ng/mL 0.3 Urine Color (Yellow) Yellow Urine Clarity (Clear) Sl Cloudy Urine pH (5-8) 5.5 Ur Specific [place] (1.005-1.025) 1.020 Urine Protein (Neg-Trace) mg/dL 100 H Urine Ketones (Negative) mg/dL Negative Urine Blood (Negative) Small H Urine Nitrite (Negative) Negative Urine Bilirubin (Negative) Negative Urine Urobilinogen (Up to 0.2) mg/dL 0.2 Ur Leukocyte Esterase (Negative) Large H Urine RBC (0-2) HPF 10-20 H Urine WBC (0-5) HPF >50 H Ur Epithelial Cells (Negative) HPF Rare Urine Crystals (Negative) HPF Negative Urine Bacteria (Negative) HPF Few Urine Casts (Negative) LPF Negative Urine Mucus (Negative) Negative Ur Culture Indicated? Yes Urine Glucose (Negative) mg/dL Negative COVID-19 Source Nasopharynx SARS-CoV-2 (PCR) (Negative) Negative Quality:SDOH Health Related Social Needs: No Data to Display PFSH All Active Problems (Updated 09/20/23 @ 07:46 by Leonora Hollingsworth MD) Sepsis (Acute) Kidney disease (Acute) Heart failure (Acute) Morbid obesity (Acute) Chronic wound (Acute) Urinary tract infection (Acute) Hearing difficulty (Acute) Tinnitus (Acute) Cerumen impaction (Acute) Neuropathy (Acute) Lower extremity edema (Acute) Medical History (Updated 09/20/23 @ 07:46 by Leonora Hollingsworth MD) Wound infection Plaque psoriasis Thrush Dyspnea on exertion Headache Lateral epicondylitis Rotator cuff syndrome CHF (congestive heart failure) Edema Hip pain Hypoxia Arthralgia Vertigo Obesity Anemia Renal insufficiency Sore throat Vitamin D deficiency Cardiomyopathy Hypertension Tubular adenoma of colon Hypogonadism male Psoriasis Osteoarthritis Ventral incisional hernia Hypothyroidism Hyperlipidemia Depression Foot ulceration Erectile dysfunction B12 deficiency Chronic pain Morbid obesity Gout Chronic painful diabetic neuropathy Oral candidiasis Lumbar radiculopathy Diabetes mellitus, type II, insulin dependent COURTNEY (obstructive sleep apnea) Surgical History Colostomy reveresal Colonoscopy - MAC Colectomy Family History (Updated 01/27/19 @ 15:06 by Ivan Weir MD) Mother Diabetes Essential hypertension AAA (abdominal aortic aneurysm) Kidney disease Heart problem COPD (chronic obstructive pulmonary disease) Father Pancreatic cancer Diabetes Angina pectoris Maternal Uncle Leukemia Maternal Grandmother Heart problem Other Brain aneurysm Social History Smoking/Tobacco Use Status: Former Tobacco Use Quit Date: 04/27/94 Pack-years: 24 Tobacco: How many years used: 16 Smoking risk assessment performed?: Yes Alcohol Intake: current Alcohol Intake frequency: holidays/special occasions only Drug use: Never Substance use type: does not use Housing: house Do you feel safe at home: Yes Do you feel safe in your relationship?: Yes Additional Social history: arrived soon after, supportive to pt's needs.
[2023-09-20 04:58] LABS: Source Nasopharynx
[2023-09-20 05:22] LABS: BE (Venous) 5 mmol/L (-2-3); HCO3 (Venous) 31 mmol/L (23-28); O2 Sat (Venous) 50 %; TCO2 (Venous) 29 mmol/L (24-29); pCO2 (Venous) 56 mmHg (41-51); pH (Venous) 7.35 (7.31-7.41); pO2 (Venous) 29 mmHg
[2023-09-20 05:24] LABS: Lactate 1.6 mmol/L (0.6-1.4)
[2023-09-20 05:26] LABS: Abs Immature Grans 0.11 10^3/uL (0.0-0.06); Absolute Basophil Count 0.06 10^3/uL (0.0-0.2); Absolute Eosinophil Count 0.07 10^3/uL (0.0-0.7); Absolute Lymphocyte Count 0.94 10^3/uL (1.2-3.4); Absolute Monocyte Count 1.15 10^3/uL (0.1-0.8); Absolute Neutrophil Count 11.56 10^3/uL (1.2-6.7); Basophils % 0.4 %; Eosinophils % 0.5 %; HCT 34.7 % (40.0-50.0); Immature Grans % 0.8 %; Lymphocytes % 6.8 %; MCH 28.9 pg (27.0-33.0); MCHC 31.7 % (32.0-36.0); MCV 91 fL (80-95); MPV 9.3 fL (8.0-11.0); Monocytes % 8.3 %; Neutrophils % 83.2 %; Platelet Count 217 10^3/uL (130-400); RDW 17.7 % (11.8-14.1); RDW-SD 58.4 fL; WBC 13.89 10^3/uL (4.4-10.8)
[2023-09-20 05:27] LABS: COVID-19 PCR Negative (Negative)
[2023-09-20 05:35] LABS: Bilirubin Negative (Negative); Blood Small (Negative); Clarity Sl Cloudy (Clear); Glucose Negative (Negative); Ketones Negative (Negative); Leukocyte Esterase Large (Negative); Nitrite Negative (Negative); Urobilinogen 0.2 mg/dL (Up to 0.2); pH 5.5 (5-8)
[2023-09-20 05:39] LABS: INR 1.1 (0.9-1.1); PTT Activated 27.8 sec (23.6-32.8); Prothrombin Time 10.8 sec (9.1-11.1)
[2023-09-20 05:46] LABS: Bacteria Few HPF (Negative); C & S Indicated? Yes; Casts Negative LPF (Negative); Crystals Negative HPF (Negative); Mucus Negative (Negative); WBC >50 HPF (0-5)
[2023-09-20 05:46] LABS: NT-proBNP 2207 pg/mL (<300)
[2023-09-20 05:47] LABS: Epithelial Cells Rare HPF (Negative)
--- NOTE | 2023-09-20 05:58 | DI.CT_ITS ---
Exam(s) CT CHEST PE ABD PELVIS W EXAM: CT CHEST PE ABD PELVIS W CLINICAL HISTORY: recent covid, tachycardia, low grade fever. TECHNIQUE: Imaging Protocol: Axial computed tomography images with coronal and sagittal reformatted images were created and reviewed CONTRAST MATERIAL: Intravenous: Omnipaque 350 Contrast volume:100 ml Oral: yes / no COMPARISON: CT CT ABDOMEN PELVIS W from 07/19/2023 FINDINGS: CHEST: Mild respiratory motion. Tracheobronchial tree: Patent. Pulmonary parenchyma: Dependent changes. No consolidation or dominant measurable mass. Pleura: No effusion or pneumothorax. Lymph nodes: Within normal limits. Aorta: Thoracic portion non-dilated. Heart: Left ventricular dilatation. Mild coronary artery calcifications. No pericardial effusion. Bones: Flowing osteophytes.. No lytic or blastic lesions.No compression fractures. Soft tissues: Left gynecomastia. Right breast not fully included in field of view. ABDOMEN and PELVIS: Exam is limited by patient body habitus and motion. Soft tissue not included completely included in images. Liver: Enlarged. Normal density. No measurable mass. Gallbladder and biliary tract: Distended but no wall thickening. small layering stones. No biliary dilatation. Pancreas: Normal density, no abnormal calcifications or inflammatory process. Spleen: Mildly enlarged. Kidneys: Normal size, contour and axis. No radiodense stones. No obstructive uropathy. No suspicious masses seen. Adrenal glands: No masses seen. Aorta: Abdominal portion non-dilated. Atherosclerotic changes. Lymph nodes: Within normal limits. Soft tissues: Soft tissue thickening in right inguinal region. Question of some soft tissue air vers us air within a skin fold. Marked improvement from prior. Appears to be an overlying soft tissue de fect which may be postsurgical. Some gauze material is also noted. Dehiscence of the anterior abdom inal wall with large pannus containing bowel as well as portion of the bladder. Bladder: Mild diffuse wall thickening. Bowel: No obstruction or bowel wall thickening. Moderate to increased stool. Appendix normal. Peritoneal cavity: No ascites. No focal collection. No mesenteric inflammatory response. Bones: Degenerative changes in the spine. Reproductive organs: Within normal limits. IMPRESSION: Exam limited by patient body habitus. No acute abnormality in the chest. Marked improvement in previously noted right inguinal region necrotizing fasciitis. There is now mil d skin thickening. There is a question of some air within the soft tissues versus within a skin fold . Mild diffuse bladder wall thickening. Findings could represent cystitis. Prostate not enlarged. RADIATION DOSE DELIVERED: Total DLP DATA REPOSITORY: All CT scans at this facility are submitted to the National Radiology Data Registry (NRDR) Dose Index Registry (DIR) with the [employer] (ACR). RADIATION OPTIMIZATION: All CT scans at this facility use at least one of these dose optimization te chniques: automated exposure control; mA and/or kV adjustment per patient size (includes targeted exa ms where dose is matched to clinical indication); or iterative reconstruction.
[2023-09-20 06:00] LABS: ALT 18 U/L (16-63); AST 11 U/L (15-37); Albumin 2.7 g/dL (3.4-5.0); Alkaline Phosphatase 106 U/L (46-116); Anion Gap 9.5 mmol/L (3-11); BUN 56 mg/dL (7-18); CO2 31.5 mmol/L (21.0-32.0); Calcium 9.1 mg/dL (8.5-10.1); Chloride 100 mmol/L (98-107); Estimated GFR 36.13 (mL/min/1.73m2); Glucose 241 mg/dL (74-106); Potassium 4.4 mmol/L (3.5-5.1); Procalcitonin 0.3 ng/mL; Sodium 141 mmol/L (136-145); Total Protein 7.1 g/dL (6.4-8.2); Troponin I < 50 ng/L (< or =60)
[2023-09-20] MEDS: LINEZOLID 600 MG/300 ML BAG 300 MG IVPB ×2 (06:06→17:12)
[2023-09-20] MEDS: PIPERACILLIN/TAZO 3.375 GM in Normal Saline 100 ML IVPB (06:06)
[2023-09-20] MEDS: Omnipaque 350 MG/ML 100 ML BTL IJ (06:07)
[2023-09-20] MEDS: Normal Saline - Diluent 50 ML VIAL IJ (06:08)
[2023-09-20 06:13] LABS: Bilirubin, Total 0.8 mg/dL (0.2-1.0)
--- NOTE | 2023-09-20 06:15 | NUR.NOTE ---
2 dressings on ABD changed. PT has healing wound in RLQ of ABD. new dressing applied. PT has large open area in R groin area. new dressing applied. Nursing Note:
[2023-09-20] MEDS: CLINDAMYCIN 900 MG/50 ML BAG 50 MG IVPB (06:30)
[2023-09-20] MEDS: Insulin Aspart 100 UNITS/ML UNIT 10 UNITS SC (06:33)
--- NOTE | 2023-09-20 06:40 | DI.VRAD_ITS ---
PROCEDURE INFORMATION: Exam: CTA Chest With Contrast Exam date and time: 09/20/2023 5:47 AM Age: 67 years old Clinical indication: Fever and other: Tachycardia; Patient HX: Recent covid, tachycarida, low grade fever, sepsis, recent nec fasc TECHNIQUE: Imaging protocol: Computed tomographic angiography of the chest with contrast. Exam focused on the arteries. Radiation optimization: All CT scans at this facility use at least one of these dose optimization techniques: automated exposure control; mA and/or kV adjustment per patient size (includes targeted exams where dose is matched to clinical indication); or iterative reconstruction. Contrast material: [id number]; Contrast volume: 100 ml; Contrast route: INTRAVENOUS (IV); COMPARISON: No relevant prior studies are available for comparison. FINDINGS: Limitations: Mild motion artifact. Pulmonary arteries: No pulmonary embolus is appreciated. Aorta: No thoracic aortic aneurysm seen. Arterial calcifications. Lungs: Dependent changes are present in the lungs. Scattered subcentimeter pulmonary nodules. Pleural spaces: No pleural effusion. Heart: Borderline cardiomegaly. Coronary arteries: Coronary artery calcifications. Lymph nodes: Nonspecific mediastinal lymph nodes. Intraperitoneal space: CT scan of the abdomen and pelvis dictated separately. Bones/joints: No acute pertinent abnormality seen. Soft tissues: No acute pertinent abnormality seen. IMPRESSION: 1. No acute findings to explain reported symptoms. 2. Additional studies dictated separately. PROCEDURE INFORMATION: Exam: CT Abdomen And Pelvis With Contrast Exam date and time: 09/20/2023 5:47 AM Age: 67 years old Clinical indication: Fever and other: Tachycardia; Patient HX: Recent covid, tachycarida, low grade fever, sepsis, recent nec fasc TECHNIQUE: Imaging protocol: Computed tomography of the abdomen and pelvis with contrast. Radiation optimization: All CT scans at this facility use at least one of these dose optimization techniques: automated exposure control; mA and/or kV adjustment per patient size (includes targeted exams where dose is matched to clinical indication); or iterative reconstruction. Contrast material: [id number]; Contrast volume: 100 ml; Contrast route: INTRAVENOUS (IV); COMPARISON: CT ABDOMEN PELVIS W 07/19/2023 9:29 AM FINDINGS: Limitations: Mild motion artifact. The anterior abdomen and pelvis are incompletely imaged. Lungs: CT scan of the chest dictated separately. Liver: Hepatomegaly. Gallbladder and bile ducts: Distended gallbladder. Cholelithiasis. Pancreas: No CT evidence for acute pancreatitis. Spleen: Splenomegaly. Adrenal glands: Left adrenal myelolipoma. Kidneys and ureters: Partially atrophic left kidney. No hydronephrosis. Stomach and bowel: Anterior abdominal wall laxity with large pannus containing small and large bowel as well as portion of the urinary bladder. This is incompletely imaged. No definite intestinal obstruction appreciated. Retained fecal material throughout the colon. Correlate clinically for history of constipation. Appendix: No evidence of appendicitis. Intraperitoneal space: No free air. Vasculature: Arterial calcifications. Lymph nodes: No acute findings. Urinary bladder: The bladder appears mildly thickened but is incompletely distended. Reproductive: See Soft tissues finding. Bones/joints: No pertinent acute abnormality seen. Soft tissues: Stranding of the subcutaneous fat in the right inguinal region extending into the scrotum. Correlate clinically for cellulitis. Gas in this area appears to be in a skin fold. Soft tissue gas cannot be definitively excluded. IMPRESSION: 1. Study limitations as above. 2. Stranding in the subcutaneous fat of the right inguinal region and scrotum. Gas in this area appears to be within skin fold. Cannot exclude soft tissue gas. 3. Thickening of the urinary bladder may be due in part to incomplete distension. Underlying cystitis, muscular hypertrophy, or neoplasm not excluded. Please correlate clinically. 4. Additional findings as above. 5. Additional studies dictated separately. Dictated and Authenticated by: Liestte Bowden MD. Ordering:AMARI Lea MD
[2023-09-20 07:05] LABS: C-Reactive Protein 8.25 mg/dL (<or=0.5)
[2023-09-20 08:03] LABS: Troponin I < 50 ng/L (< or =60)
--- NOTE | 2023-09-20 09:08 | W.PM.HP.N ---
Date of service: 09/20/23 Time of Service: 09:08 Assessment and Plan Assessment and plan (1) Sepsis: Status: Acute Assessment and plan: Meets sepsis criteria with elevated WBC, heart rate, RR, and source of infection. He did not get fluids in the emergency room due to history of CHF. BP a little soft now so I am starting with 500ml LR Holding ARB and diuretics He is on pip/tazo and linazolid. I don't think the wound is infected and we have a culture so I think we can narrow as soon as he is clearly clinically improved. (2) Urinary tract infection: Status: Acute Assessment and plan: Source of infection above. We do have cultures from 09/17 and 09/04 showing E. Coli. May have been inadequately treated. Also anticholinergics may be causing him not to empty bladder as well. Get bladder scan. (3) Diabetes mellitus, type II, insulin dependent: Assessment and plan: Good outpatient control, using insulin pump and GLP-1. No change. (4) Cardiomyopathy: Assessment and plan: With history of HFrEF. His BNaP is elevated but lower than on previous admission. Clinically he is not fluid overloaded. Monitor with fluids for sepsis/UTI, continue to be conservative. (5) Anemia: Assessment and plan: Near baseline, possibly CKD related. no active bleed. (6) Chronic wound: Status: Acute Assessment and plan: This does not look infected. Continue wound care, keep clean. Question of free air vs skin fold on CT, no evidence of active infection or crepitus on exam so I suspect the latter. (7) Neuropathy: Status: Acute Assessment and plan: Cut back TCA dose (he is also on gabapentin and SNRI) as may increase risk of urine infection (8) COURTNEY (obstructive sleep apnea): Assessment and plan: hasn't been using BiPAP at home. (9) Chronic renal disease, stage 3, moderately decreased glomerular filtration rate between 30-59 mL/min/1.73 square meter: Status: Acute Assessment and plan: at recent baseline, follow. (10) Morbid obesity: Status: Acute Assessment and plan: on GLP-1. This complicates the wound infection, but it is healing per report. 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 He has had some dysuria off and on for weeks. States he was treated at rehab for UTI twice but he isn't sure the medication was working as the dysuria never resolved. The day prior to admission he felt generally fatigued all day. He had less appetite and couldn't walk as far. He has not lost his appetite. He had some nausea but not vomiting, no diarrhea. He has some residual cough from COVID 2+ weeks ago, but no increase in the past few days. At 3am this morning he woke with shaking chills and this brought him into the ED. He is getting regular wound care and his groin wound is healing. He denies pain in the groin area. He denies a history of retaining urine. Review of Systems All systems reviewed & are unremarkable except as noted in HPI and below Constitutional Constitutional: Denies headache(s) ENT Ears, Nose, Mouth, and Throat: Denies dizziness and Denies headache(s) Cardiovascular Cardiovascular: Denies chest pain, Denies lightheadedness and Denies dyspnea Respiratory Respiratory: Denies chest congestion, Denies hemoptysis and Denies dyspnea Integumentary/Breasts Skin/Breast: Denies new lesions, Reports erythema (in shins, this is chronic) and Reports wounds Neurologic Neurologic: Denies confusion, Denies dizziness, Denies headache(s) and Reports sensory deficit (has peripheral neuropathy) Psychiatric Psychiatric: Denies confusion PFSH All Active Problems Chronic renal disease, stage 3, moderately decreased glomerular filtration rate between 30-59 mL/min/1.73 square meter (Acute) Sepsis (Acute) Kidney disease (Acute) Heart failure (Acute) Morbid obesity (Acute) Chronic wound (Acute) Urinary tract infection (Acute) Hearing difficulty (Acute) Tinnitus (Acute) Neuropathy (Acute) Lower extremity edema (Acute) Medical History Wound infection Plaque psoriasis Thrush Dyspnea on exertion Headache Lateral epicondylitis Rotator cuff syndrome CHF (congestive heart failure) Edema Hip pain Hypoxia Arthralgia Vertigo Obesity Anemia Renal insufficiency Sore throat Vitamin D deficiency Cardiomyopathy Hypertension Tubular adenoma of colon Hypogonadism male Psoriasis Osteoarthritis Ventral incisional hernia Hypothyroidism Hyperlipidemia Depression Foot ulceration Erectile dysfunction B12 deficiency Chronic pain Morbid obesity Gout Chronic painful diabetic neuropathy Oral candidiasis Lumbar radiculopathy Diabetes mellitus, type II, insulin dependent COURTNEY (obstructive sleep apnea) Surgical History Colostomy reveresal Colonoscopy - MAC Colectomy Family History Mother Diabetes Essential hypertension AAA (abdominal aortic aneurysm) Kidney disease Heart problem COPD (chronic obstructive pulmonary disease) Father Pancreatic cancer Diabetes Angina pectoris Maternal Uncle Leukemia Maternal Grandmother Heart problem Other Brain aneurysm Social History Smoking/Tobacco Use Status: Former Tobacco Use Quit Date: 04/27/94 Pack-years: 24 Tobacco: How many years used: 16 Smoking risk assessment performed?: Yes Alcohol Intake: current Alcohol Intake frequency: holidays/special occasions only Drug use: Never Substance use type: does not use Housing: house Do you feel safe at home: Yes Do you feel safe in your relationship?: Yes Additional Social history: arrived soon after, supportive to pt's needs. Meds Allergies and Home Medications Allergies Allergy/AdvReac Type Severity Reaction Status Date / Time lisinopril [From Prinivil] Allergy Severe itching in Verified 09/20/23 05:38 throat hay fever Allergy Unknown Skin Rash Uncoded 07/19/23 08:54 Home Medications Medication Instructions Recorded Confirmed Type amitriptyline 25 mg tablet 25 mg PO HS 12/18/12 09/20/23 History aspirin 81 mg tablet,delayed 81 mg PO DAILY 12/18/12 09/20/23 History release (Aspir-) gabapentin 600 mg tablet 600 mg PO TID 12/18/12 09/20/23 History pravastatin 40 mg tablet 40 mg PO HS 12/18/12 09/20/23 History clobetasol-emollient 0.05 % 15 gm topical DAILY 08/08/16 09/20/23 History topical cream levothyroxine 200 mcg tablet 200 mcg PO DAILY 08/28/17 09/20/23 History metoprolol succinate 100 mg 100 mg PO DAILY #90 tabs 03/05/18 09/20/23 Rx tablet,extended release 24 hr tramadol 50 mg tablet 50 mg PO BID PRN 01/26/19 09/20/23 History acetaminophen 325 mg tablet 650 mg PO BID 01/27/19 09/20/23 History (Tylenol) diclofenac sodium 1 % topical gel 2 gm topical QID PRN 01/27/19 09/20/23 History (Voltaren) losartan 50 mg tablet 50 mg PO DAILY blood pressure #90 01/27/19 09/20/23 Rx tabs docusate sodium 100 mg capsule 100 mg PO BID PRN 11/18/22 09/20/23 History (Colace) dulaglutide 3 mg/0.5 mL 3 mg subcut QWEEK 11/18/22 09/20/23 History subcutaneous pen injector (Trulicity) duloxetine 30 mg capsule,delayed 60 mg PO DAILY 11/18/22 09/20/23 History release fluconazole 100 mg tablet 150 mg PO DAILY PRN 11/18/22 09/20/23 History meclizine 25 mg chewable tablet 12.5 mg PO TID PRN 11/18/22 09/20/23 History ergocalciferol (vitamin D2) 1,250 1,250 mcg PO .2x weekly 07/19/23 09/20/23 History mcg (50,000 unit) capsule furosemide 80 mg tablet 80 mg PO DAILY 07/19/23 09/20/23 History spironolactone 25 mg tablet 25 mg PO DAILY 07/19/23 09/20/23 History berberrine 1 cap PO/SL BID 09/20/23 09/20/23 History blood-glucose sensor (Dexcom G6 09/20/23 09/20/23 History Sensor device) cephalexin 500 mg capsule mg PO DAILY 09/20/23 History diphenhydramine HCl 25 mg tablet 25 mg PO Q6H PRN 09/20/23 09/20/23 History (Allergy (diphenhydramine)) hemp seed oil 1 cap PO/SL DAILY 09/20/23 09/20/23 History insulin lispro 100 unit/mL 1 sliding scale dose subcut 09/20/23 09/20/23 History subcutaneous solution (Humalog USEASDIRECTD U-100 Insulin) nystatin 100,000 unit/gram topical 1 applic topical BID 09/20/23 09/20/23 History cream vitamin A-vitamin C-vit E-min 1 cap PO DAILY 09/20/23 09/20/23 History capsule Exam Narrative Exam Narrative: General: Alert and oriented x 4. In no acute distress. Head: Normocephalic, atraumatic. PERRL, EOMI. MM a little dry, no lesions. Neck: Neck supple, no masses/LAD. Trachea midline Cardiac: ?Tachycardiac, regular, no murmurs appreciated Resp: No respiratory distress. No wheezes. Slight dry sounding crackles at bases of lungs. Abd: ?Obese, soft, nontender. Large surgical scars. Dressing in place to right lower abd CDI, small ~2cm wound below without overt signs of infection. Dressing to right groin CDI, wound below about 4-5 cm, rectangular/oval, beefy red granulation tissue, minimal discharge, no crepitus, not significantly tender. Didn't smell bad to me but I was masked. Back: Skin intact. No CVAT Extremities: ?No deformities.? 1-2+ pitting edema symetric BLE SKIN: See ABD. skin over shins carmen shiney and red, warm (same as chronic per patient and ) Neurologic: GCS 15. ? CN 2-12 grossly intact. Moves all extremities freely. no tremor Results Imaging Abdomen CT scan report/results: report reviewed (Exam limited by patient body habitus. Marked improvement in previously noted R inguinal region necrotizing fasciitis, now mild skin thickening. Question of some air within the soft tissues versus within a skin fold. Mild diffuse bladder wall thickening, cystitis? prostate no large) CT scan - chest: report reviewed (No acute abnormality in the chest. ) EKG: report reviewed and image reviewed (sinus tachy with LBBB) Labs 09/20/23 05:00 09/20/23 05:00 Labs: Laboratory Results - last 24 hr 09/20/23 09/20/23 09/20/23 04:50 05:00 05:20 WBC 13.89 H RBC 3.80 L Hgb 11.0 L Hct 34.7 L MCV 91 MCH 28.9 MCHC 31.7 L RDW 17.7 H Plt Count 217 MPV 9.3 Immature Gran % 0.8 Neutrophils % 83.2 Lymphocytes % 6.8 Monocytes % 8.3 Eosinophils % 0.5 Basophils % 0.4 Nucleated RBC % 0.0 Absolute Neutrophils 11.56 H Absolute Lymphocytes 0.94 L Absolute Monocytes 1.15 H Absolute Eosinophils 0.07 Absolute Basophils 0.06 PT 10.8 INR 1.1 APTT 27.8 VBG pH 7.35 VBG pCO2 56 H VBG pO2 29 VBG HCO3 31 H VBG Total CO2 29 VBG O2 Saturation 50 VBG Base Excess 5 H VBG Lactate 1.6 H Sodium 141 Potassium 4.4 Chloride 100 Carbon Dioxide 31.5 Anion Gap 9.5 BUN 56 H Creatinine 2.0 H Est GFR (CKD-EPI 2020) 36.13 Glucose 241 H Calcium 9.1 Total Bilirubin 0.8 AST 11 L ALT 18 Alkaline Phosphatase 106 Troponin I < 50 C-Reactive Protein 8.25 H NT-Pro-B Natriuret Pep 2207 H Total Protein 7.1 Albumin 2.7 L Procalcitonin 0.3 Urine Color Yellow Urine Clarity Sl Cloudy Urine pH 5.5 Ur Specific [place] 1.020 Urine Protein 100 H Urine Ketones Negative Urine Blood Small H Urine Nitrite Negative Urine Bilirubin Negative Urine Urobilinogen 0.2 Ur Leukocyte Esterase Large H Urine RBC 10-20 H Urine WBC >50 H Ur Epithelial Cells Rare Urine Crystals Negative Urine Bacteria Few Urine Casts Negative Urine Mucus Negative Ur Culture Indicated? Yes Urine Glucose Negative COVID-19 Source Nasopharynx SARS-CoV-2 (PCR) Negative 09/20/23 07:35 WBC RBC Hgb Hct MCV MCH MCHC RDW Plt Count MPV Immature Gran % Neutrophils % Lymphocytes % Monocytes % Eosinophils % Basophils % Nucleated RBC % Absolute Neutrophils Absolute Lymphocytes Absolute Monocytes Absolute Eosinophils Absolute Basophils PT INR APTT VBG pH VBG pCO2 VBG pO2 VBG HCO3 VBG Total CO2 VBG O2 Saturation VBG Base Excess VBG Lactate 1.0 Sodium Potassium Chloride Carbon Dioxide Anion Gap BUN Creatinine Est GFR (CKD-EPI 2020) Glucose Calcium Total Bilirubin AST ALT Alkaline Phosphatase Troponin I < 50 C-Reactive Protein NT-Pro-B Natriuret Pep Total Protein Albumin Procalcitonin Urine Color Urine Clarity Urine pH Ur Specific [place] Urine Protein Urine Ketones Urine Blood Urine Nitrite Urine Bilirubin Urine Urobilinogen Ur Leukocyte Esterase Urine RBC Urine WBC Ur Epithelial Cells Urine Crystals Urine Bacteria Urine Casts Urine Mucus Ur Culture Indicated? Urine Glucose COVID-19 Source SARS-CoV-2 (PCR) Last Vital Signs Temp 38.1 C H 09/20/23 08:06 Pulse 107 H 09/20/23 08:06 Resp 16 09/20/23 08:06 BP 138/40 L 09/20/23 08:06 Pulse Ox 98 09/20/23 08:06 Time Spent Time spent with Patient: >75 minutes Time was spent: preparing to see the patient(eg.review tests), obtaining and/or reviewing separately otained hiistory, ordering medications,tests, procedures, referring, communicating with other health transitional care manager, indepentently interpreting results, counseling the patient and care coordination
[2023-09-20] MEDS: Enoxaparin 40 MG/0.4 ML SYR SC ×2 (10:01→20:34)
[2023-09-20] MEDS: Metoprolol CR 100 MG TABCR PO (10:02)
[2023-09-20] MEDS: Losartan 50 MG TAB PO (10:02)
[2023-09-20] MEDS: Aspirin E.C. 81 MG TABEC PO (10:02)
[2023-09-20] MEDS: DULoxetine 30 MG CAP 60 MG PO (10:02)
[2023-09-20] MEDS: Gabapentin 600 MG TAB PO ×3 (10:02→20:34)
[2023-09-20] MEDS: Levothyroxine 200 MCG TAB PO (11:43)
[2023-09-20] MEDS: Lactated Ringers 500 ML IV ×2 (12:44→18:25)
[2023-09-20] MEDS: PIPERACILLIN/TAZO 3.375 GM in Normal Saline 50 ML IVPB ×2 (13:37→20:35)
[2023-09-20] MEDS: Acetaminophen 325 MG TAB PO (14:26)
[2023-09-20] MEDS: Insulin Aspart 300 UNITS/3 ML PEN 10 UNITS SC (19:39)
[2023-09-20] MEDS: Pravastatin 40 MG TAB PO (20:34)
[2023-09-20] MEDS: Amitriptyline 25 MG TAB 12.5 MG PO (20:34)
[2023-09-20] MEDS: Nystatin CREAM 30 GM TUBE TP (20:35)
[2023-09-20] MEDS: Insulin Glargine 300 UNITS/3 ML PEN 30 UNITS SC (21:24)
[2023-09-21] MEDS: Acetaminophen 325 MG TAB PO ×3 (02:21→21:15)
[2023-09-21] MEDS: PIPERACILLIN/TAZO 3.375 GM in Normal Saline 50 ML IVPB ×4 (02:22→21:16)
[2023-09-21] MEDS: Normal Saline Flush 10 ML SYR (02:28)
[2023-09-21 02:59] VITALS: BP 114/60; PULSE 109; RESP 19; TEMP 36.7; O2SAT 94
[2023-09-21] MEDS: LINEZOLID 600 MG/300 ML BAG 300 MG IVPB ×2 (05:41→17:54)
[2023-09-21] MEDS: Levothyroxine 200 MCG TAB PO (05:41)
[2023-09-21] MEDS: Insulin Aspart 300 UNITS/3 ML PEN 10 UNITS SC ×3 (07:23→16:52)
[2023-09-21] MEDS: Nystatin CREAM 30 GM TUBE TP ×2 (07:24→21:21)
[2023-09-21] MEDS: Normal Saline Flush 10 ML SYR IVP ×2 (07:25→13:43)
[2023-09-21 07:27] LABS: Abs Immature Grans 0.16 10^3/uL (0.0-0.06); Absolute Basophil Count 0.08 10^3/uL (0.0-0.2); Absolute Lymphocyte Count 1.55 10^3/uL (1.2-3.4); Absolute Monocyte Count 1.33 10^3/uL (0.1-0.8); Absolute Neutrophil Count 8.15 10^3/uL (1.2-6.7); Basophils % 0.7 %; Eosinophils % 0.9 %; HCT 30.8 % (40.0-50.0); HGB 9.6 g/dL (13.5-17.5); Immature Grans % 1.4 %; Lymphocytes % 13.6 %; MCHC 31.2 % (32.0-36.0); MCV 90 fL (80-95); Monocytes % 11.7 %; Neutrophils % 71.7 %; RBC 3.43 10^6/uL (4.36-5.78); RDW-SD 58.5 fL; WBC 11.37 10^3/uL (4.4-10.8)
[2023-09-21] MEDS: Aspirin E.C. 81 MG TABEC PO (07:30)
[2023-09-21] MEDS: Metoprolol CR 100 MG TABCR PO (07:30)
[2023-09-21] MEDS: Losartan 50 MG TAB PO (07:30)
[2023-09-21] MEDS: DULoxetine 30 MG CAP 60 MG PO (07:30)
[2023-09-21] MEDS: Gabapentin 600 MG TAB PO ×3 (07:30→21:19)
[2023-09-21] MEDS: Enoxaparin 40 MG/0.4 ML SYR SC ×2 (07:32→21:17)
[2023-09-21 07:41] LABS: Anion Gap 7.9 mmol/L (3-11); BUN 60 mg/dL (7-18); CO2 29.1 mmol/L (21.0-32.0); CREATININE 2.9 mg/dL (0.70-1.30); Calcium 8.7 mg/dL (8.5-10.1); Chloride 98 mmol/L (98-107); Estimated GFR 23.13 (mL/min/1.73m2); Glucose 211 mg/dL (74-106); Potassium 4.1 mmol/L (3.5-5.1); Sodium 135 mmol/L (136-145)
[2023-09-21 07:47] LABS: Anisocytosis 2+; Diff Comment RBC Morph Reviewed
[2023-09-21 07:48] LABS: Polychromasia Present
[2023-09-21 08:00] VITALS: O2SAT 98
[2023-09-21 08:04] VITALS: BP 113/64; PULSE 93; RESP 19; TEMP 36.1; O2SAT 98
[2023-09-21] MEDS: Insulin Aspart 300 UNITS/3 ML PEN SC ×3 (08:27→16:50)
[2023-09-21] MEDS: Ergocalciferol 50000 UNITS CAP PO (09:06)
[2023-09-21] MEDS: Docusate Sodium 100 MG CAP PO (09:06)
[2023-09-21 11:16] VITALS: BP 91/50; PULSE 78; RESP 18; TEMP 36.8; O2SAT 100
[2023-09-21] MEDS: traMADol 50 MG TAB PO ×2 (13:41→22:42)
[2023-09-21 15:08] VITALS: BP 94/52; PULSE 78; RESP 20; TEMP 36.4; O2SAT 94
--- NOTE | 2023-09-21 15:50 | PGE_ITS ---
Date of Service Date of service: 09/21/23 Time of Service: 11:40 Assessment and Plan Assessment and plan (1) Sepsis: Status: Acute Assessment and plan: Met sepsis criteria on admission. Elevated WBC and heart rate, RR improved. Got two boluses of 500ml LR after admission. Feels well. Encourage PO now. Holding ARB and diuretics He is on pip/tazo and linazolid. I don't think the wound is infected and we have a culture so I think we can narrow to ceftriaxone when he is cllinically improved, however with soft BP I will hold off for now. BPs remain soft and using a little bit of oxygen, but exam benign and improving symptoms. Monitor. (2) Urinary tract infection: Status: Acute Assessment and plan: Source of infection above. We do have cultures from 09/17 and 09/04 showing E. Coli. May have been inadequately treated. Emptying bladder. (3) Diabetes mellitus, type II, insulin dependent: Assessment and plan: Good outpatient control, using insulin pump and GLP-1. Pump is empty so given basal/bolus with correction here. Titrate dose for goal 140-200, increase basal (4) Cardiomyopathy: Assessment and plan: With history of HFrEF. His BNaP was elevated but lower than on previous admission. Clinically he is not fluid overloaded now. Monitor fluid status with some additional hydration (5) Anemia: Assessment and plan: Near baseline, possibly CKD related. no active bleed. (6) Chronic wound: Status: Acute Assessment and plan: This does not look infected. Continue wound care, keep clean. Question of free air vs skin fold on CT, no evidence of active infection or crepitus on exam so I suspect the latter. (7) Neuropathy: Status: Acute Assessment and plan: Cut back TCA dose (he is also on gabapentin and SNRI) as may increase risk of urine infection (8) Chronic renal disease, stage 3, moderately decreased glomerular filtration rate between 30-59 mL/min/1.73 square meter: Status: Acute Assessment and plan: at recent baseline, on admission, but Cr up today. Given more gentle fluids. (9) Morbid obesity: Status: Acute Assessment and plan: on GLP-1. This complicates the wound infection, but it is healing per report. Subjective Subjective Patient reports: tolerating a regular diet and voiding w/o difficulty; denies diarrhea, nausea, vomiting, shortness of breath or fever Interval history since last seen: Feeling better than yesterday, but still tired. He still hasn't recovered from hospitalization and infection last month. Dysuria has resolved. Exam Narrative Exam Narrative: General: Alert and oriented . In no acute distress sitting up in bed, some dyspnea with walking in room with walker Cardiac: ?Tachycardiac, regular, no murmurs appreciated Resp: No respiratory distress. No wheezes or rales today (he had just stood up and walked). Abd: ?Obese, soft, nontender. Large surgical scars. Dressing not removed. Extremities: ?No deformities.? 1-2+ pitting edema symetric BLE SKIN: See ABD. skin over shins carmen shiney and red, a little warm Objective Last Vital Signs Temp 36.4 C L 09/21/23 15:08 Pulse 78 09/21/23 15:08 Resp 20 09/21/23 15:08 BP 94/52 L 09/21/23 15:08 Pulse Ox 94 09/21/23 15:08 Laboratory Results - last 24 hr 09/21/23 06:45 WBC 11.37 H RBC 3.43 L Hgb 9.6 L Hct 30.8 L MCV 90 MCH 28.0 MCHC 31.2 L RDW 18.0 H Plt Count MPV Immature Gran % 1.4 Neutrophils % 71.7 Lymphocytes % 13.6 Monocytes % 11.7 Eosinophils % 0.9 Basophils % 0.7 Nucleated RBC % 0.0 Absolute Neutrophils 8.15 H Absolute Lymphocytes 1.55 Absolute Monocytes 1.33 H Absolute Eosinophils 0.10 Absolute Basophils 0.08 RBC Morphology See Below Polychromasia Present Anisocytosis 2+ Sodium 135 L Potassium 4.1 Chloride 98 Carbon Dioxide 29.1 Anion Gap 7.9 BUN 60 H Creatinine 2.9 H Est GFR (CKD-EPI 2020) 23.13 Glucose 211 H Calcium 8.7 Time Spent with Patient Time Spent with Patient: 35-49 minutes Time was spent: preparing to see the patient(eg.review tests), obtaining and/or reviewing separately otained hiistory, ordering medications,tests, procedures, referring, communicating with other health occasional caregiver, indepentently interpreting results and counseling the patient
[2023-09-21] MEDS: Lactated Ringers 500 ML IV ×2 (16:22→17:56)
[2023-09-21 19:36] VITALS: BP 100/60; PULSE 87; RESP 20; TEMP 37.1; O2SAT 96
[2023-09-21] MEDS: Amitriptyline 25 MG TAB 12.5 MG PO (21:17)
[2023-09-21] MEDS: Pravastatin 40 MG TAB PO (21:19)
[2023-09-21] MEDS: Insulin Glargine 300 UNITS/3 ML PEN 30 UNITS SC (21:25)
[2023-09-22] VITALS (11 sets, daily range): BP systolic 88–109; BP diastolic 52–78; PULSE 76–94; RESP 16–20; TEMP 36–36.7; O2SAT 84–97
--- NOTE | 2023-09-22 | DI.US_ITS ---
APPROVED REPORT EXAM: Comprehensive 2D, Doppler, and color-flow Echocardiogram with contrast Patient Location: In-Patient [facility]: [facility] [employer] Instructor: Natalee Aguilar RT (R) (CT) [facility] Rhythm: NSR Indications: History of cardiomyopathy, evaluate LV and RV function. Echo Enhancing Agent Indication: Endocardial border delineation Agent(s) / Amount(s) Used: Definity 2.0 cc Other Information Study Quality: Technically Difficult Conclusion Mildly dilated left ventricle. Normal left ventricular wall thickness. Ejection fraction is 25 to 3 0% with global hypokinesis Mildly dilated right ventricle Mildly dilated right atrium. Normal left atrial size There is no significant valvular disease Findings are similar to multiple previous performed at [facility] Wall motion Left Ventricle Left ventricle is moderately dilated. Left ventricular systolic function is moderate to severely decr eased. There is normal left ventricular wall thickness. There is global hypokinesis of the left ventr icle. The diastolic function is abnormal. There is no ventricular septal defect visualized. LVEF is 2 5-30%. Prior echo, 07/12/2018, EF = 30-35% with wall motion abnormalities. Right Ventricle Right ventricle is mildly dilated. RV function is preserved with apical hypokinesis. Atria The left atrium size is normal. Right atrium is mildly dilated. The interatrial septum is intact with no evidence for an atrial septal defect. Aortic Valve Aortic valve is trileaflet. Aortic valve leaflets are mildly thickened. There is no aortic valvular s tenosis. No aortic regurgitation is present. Mitral Valve Mitral valve leaflets are mildly thickened. No evidence of mitral valve stenosis. Mild mitral regurgi tation. Tricuspid Valve The tricuspid valve is normal in structure. There is no tricuspid valve stenosis. Trace tricuspid reg urgitation. Unable to assess PA pressure due to inadequate TR jet. Pulmonic Valve The pulmonary valve is normal in structure. There is no pulmonic valvular stenosis. Trace pulmonic re gurgitation. Great Vessels The aortic root is normal in size. The pulmonary artery is normal. The ascending aorta is normal in s ize. Aortic arch is normal in caliber. The IVC is dilated. The IVC collapses >50% with inspiration. Pericardium Prominent anterior epicardial fat pad is present. There is no pleural effusion. 2D Dimensions IVSD d PLAX 1.00 cm M: 0.6-1.2 Ao Root d 2.92 cm M: 3.1 - 3.7 LVPW d PLAX 0.85 cm M: 0.6 - 1.2 Ao Asc Diam d 3.15 cm M: 2.6 - 3.4 LVID d PLAX 6.56 cm M: 4.2 - 5.8 Prox Ao Arch 2.8 cm LVDs 5.81 cm M: 2.5 - 4.0 IVC Diam exp d SLAX 2.4 cm LV EF Teichholz 24.0 % FS 11.35 % LV EDV (Teich) 220.5 mL LV ESV (Teich) 167.5 mL M-Mode TAPSE 2.85 cm (M/F) >1.7 Auto EF LV EDV A4C 198.7 mL LV EDV A2C 216.1 mL LV EDV BP 205.7 mL LV ESV A4C 138.6 mL LV ESV A2C 171.0 mL LV ESV BP 153.2 mL LVEF(%) A4C 30.2 % LVEF(%) A2C 20.8 % LVEF(%) BP 25.5 % LV SV A4C 60.1 ml LV SV A2C 45.0 ml LV SV BP 52.5 ml LV CO A4C 5.2 L/min LV CO A2C 3.9 L/min LV CO BP 4.6 L/min HR A4C 87.34 BPM HR A2C 86.91 BPM LV EDV Index (BP) LV Strain Long Pk Overal Avg (s) 5.91 LA Volume LA Length A4C 6.3 cm LA Length A2C 5.8 cm LA Area A4C s 23.23 cm2 LA Area A2C s 20.32 cm2 LA Vol A4C A-L 72.24 mL LA Vol A2C A-L 60.19 mL LA Vol Biplane A-L 68.8 mL LA Vol/BSA A4C A-L LA Vol/BSA A2C A-L LA Vol/BSA BP A-L 24.8 mL/m2 LA Vol A4C MOD 69.1 mL LA Vol A2C MOD 55.8 mL LA Vol BP MOD 64.0 mL LV Diastology MV E' medial 0.033 (>0.07 m/s) MV E Vmax 1.11 (0.4-1.3 m/s) MV E/E' MED 33.84 (<14) MV A Vmax 0.75 (0.4-1.3 m/s) MV E' lateral 0.074 (>0.1 m/s) E/A Ratio 1.5 MV E/E' LAT 14.98 (<14) MV E' Average 0.053 m/s MV E/E'(average) 20.77 Aortic Valve LVOT Vmax 1.01 m/s LVOT Peak Grad 4.1 mmHg LVOT VTI 0.178 m LVOT Mean Grad 2.0 mmHg LVOT SV 81.46 mL LVOT Diam s 2.40 cm Mitral Valve MV DT 120 (160-240 msec) MR Vmax 1.27 m/s Pulm Vein s 0.51 m/s MR VTI 0.284 m Pulm Vein d 0.49 m/s MR Peak Grad 6.4 mmHg Pulm Vein a 0.45 m/s MR Mean Grad 3.2 mmHg Tricuspid Valve RA Pressure 8.00 mmHg TR Vmax 2.77 m/s TV S' 0.14 m/s TR Peak Grad 30.7 mmHg RVSP (TR) 38.7 mmHg
[2023-09-22] MEDS: PIPERACILLIN/TAZO 3.375 GM in Normal Saline 50 ML IVPB ×2 (03:07→08:27)
[2023-09-22] MEDS: LINEZOLID 600 MG/300 ML BAG 300 MG IVPB (05:30)
[2023-09-22] MEDS: Levothyroxine 200 MCG TAB PO (05:31)
[2023-09-22 07:44] LABS: Anion Gap 11.5 mmol/L (3-11); BUN 69 mg/dL (7-18); CO2 25.5 mmol/L (21.0-32.0); Calcium 8.8 mg/dL (8.5-10.1); Chloride 93 mmol/L (98-107); Estimated GFR 14.42 (mL/min/1.73m2); Glucose 226 mg/dL (74-106); Potassium 4.9 mmol/L (3.5-5.1); Sodium 130 mmol/L (136-145)
[2023-09-22 08:00] LABS: CREATININE 4.3 mg/dL (0.70-1.30)
[2023-09-22] MEDS: Aspirin E.C. 81 MG TABEC PO (08:25)
[2023-09-22] MEDS: DULoxetine 30 MG CAP 60 MG PO (08:25)
[2023-09-22] MEDS: Nystatin CREAM 30 GM TUBE TP ×2 (08:26→21:29)
[2023-09-22] MEDS: Enoxaparin 40 MG/0.4 ML SYR SC (08:26)
[2023-09-22] MEDS: Metoprolol CR 100 MG TABCR PO (08:26)
[2023-09-22] MEDS: Gabapentin 600 MG TAB PO ×2 (08:26→13:26)
[2023-09-22] MEDS: Acetaminophen 325 MG TAB PO ×3 (08:35→21:31)
[2023-09-22] MEDS: Insulin Aspart 300 UNITS/3 ML PEN 10 UNITS SC ×3 (08:36→17:01)
[2023-09-22] MEDS: Insulin Aspart 300 UNITS/3 ML PEN SC ×3 (08:38→17:00)
[2023-09-22] MEDS: Normal Saline 250 ML 500 ML IV (10:08)
[2023-09-22] MEDS: Normal Saline Flush 10 ML SYR IVP ×3 (10:09→15:46)
[2023-09-22] MEDS: cefTRIAXone 2 GM/50 ML BAG IVPB (10:50)
--- NOTE | 2023-09-22 12:01 | W.PM.PROGNOT ---
Date of Service Date of service: 09/22/23 Time of Service: 12:01 Assessment and Plan Assessment and plan (1) Sepsis: Status: Acute Assessment and plan: Met sepsis criteria on admission. Blood cultures NGTD, urine culture E coli pansensitive except to ampicillin. dc Zyvox and Zosyn and change to ceftriaxone 2 gm daily; BP is soft however, he did get his Toprol XL 100 mg this morning. Losartan on hold; diuretics were not reordered. last dose losartan yesteday and creatinine was 2.9 now up to 4.3. Will give further fluid boluses as his lungs are clear and he does not appear to be in acute CHF. However w/ his cardiomyopathy, will need to watch closely for fluid overload. I have asked nursing to place quiroga which they attempted and were unsuccessful. I have left message in urology for request for consult from Dr. Seymour. Once quiroga placed will check UA to see if granular or muddy brown casts; will check renal US Professional time spent interviewing and examining patient, discussion of goals of care with hospital team (care management, nursing and consulting professionals) was 60 minutes. Qualifiers: Sepsis type: Escherichia coli Sepsis acute organ dysfunction status: with acute organ dysfunction Severe sepsis acute organ dysfunction type: acute renal failure Acute renal failure type: unspecified Severe sepsis shock status: without septic shock Qualified Code(s): A41.51 - Sepsis due to Escherichia coli [E. coli]; R65.20 - Severe sepsis without septic shock; N17.9 - Acute kidney failure, unspecified (2) Urinary tract infection: Status: Acute Assessment and plan: CT scan of abdomen and pelvis demonstrated bladder wall thickening but no evidence for stones or hydronephrosis however, left kidney is atrophic. Qualifiers: Urinary tract infection type: acute cystitis Hematuria presence: without hematuria Qualified Code(s): N30.00 - Acute cystitis without hematuria (3) Diabetes mellitus, type II, insulin dependent: Assessment and plan: continue basal/bolus insulin; glucose running higher than goals (216 to 269; goal is 140 to 180). currently on Lantus 30 units HS and sliding scale insulin sensitive scale along w/ 10 unit w/ each meal. He could benefit from daily NPH along w/ increase of his Lantus and change his meal time coverage to insulin to carb ration of 2:10 and adjust his sliding scale to moderate dosing or even insulin resistant. (4) Cardiomyopathy: Assessment and plan: With history of HFrEF. His BNaP was elevated but lower than on previous admission. Clinically he is not fluid overloaded now. Monitor fluid status with some additional hydration Qualifiers: Cardiomyopathy type: dilated Qualified Code(s): I42.0 - Dilated cardiomyopathy (5) Anemia: Assessment and plan: Near baseline, possibly CKD related. no active bleed. Qualifiers: Anemia type: due to chronic kidney disease Chronic kidney disease stage: stage 3 (moderate) Chronic kidney disease stage 3 subtype: stage 3b (GFR 30-44) Qualified Code(s): N18.32 - Chronic kidney disease, stage 3b; D63.1 - Anemia in chronic kidney disease (6) Chronic wound: Status: Acute Assessment and plan: This does not look infected. Continue wound care, keep clean. Question of free air vs skin fold on CT, no evidence of active infection or crepitus on exam so I suspect the latter. (7) Neuropathy: Status: Acute Assessment and plan: Cut back TCA dose (he is also on gabapentin and SNRI) as may increase risk of urine infection (8) Chronic renal disease, stage 3, moderately decreased glomerular filtration rate between 30-59 mL/min/1.73 square meter: Status: Acute Assessment and plan: worsening azotemia and oliguria. possible contrast induced and worsened but recent administration of losartan. will give more fluids w/ close monitoring of urine ouput. (9) Morbid obesity: Status: Acute Assessment and plan: on GLP-1. This complicates the wound infection, but it is healing per report. Subjective Subjective Interval history since last seen: Patient denies any dizziness, acute dyspnea, or CP. He is being treated for urosepsis from E. coli however his blood cultures have been no growth. He also has MICHAEL in setting of CKD. Creatinine has gone up from 2.0 two days ago to 2.9 yesterday and now is 4.3. He has had little to no urine ouput. Bladder scan showed scant urine in his bladder. I have asked nursing to place quiroga but they were unable to place this. I will ask urology to place quiroga as we need accurate urine output given his worsening azotemia. He has been on Zosyn and Zyvox for his UTI. 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 He has a wound in right groin but it does not appear to draining purulent material. In light of his E coli which is sensitive to all ATB tested except for ampicillin, I have opted to change the Zosyn to high dose Rocephin. I have also asked for renal U.S and repeat UA. He had been on losartan and got a dose yesterday when his creatinine was 2.9 and he had contrast CT scan of his chest, abdomen and pelvis on 09/19 so likelihood of acute contrast nephropathy in setting of CKD. He has HFPEF w/ LVEF of 30 to 35% w/ diffuse LV hypokinesis but normal RV size and function w/ mild A.S. and mild M.R. per echocardiogram done 07/12/18. We have no more recent echo to compare. Exam Narrative Exam Narrative: Morbidly obese male, alert and oriented, N.A.D, Neck: supple, no JVD; healed tracheostomy scar LUngs: clear Heart: RRR, no appreciable murmur or rub Abdomen: obese, soft, nontender Legs: obese, 1+ pitting edema, bilateral lower extremity erythema; Left side appears to be receding compared to limits of markings made by nursing Large pannus,, erythema and moist granulation tissue in right groin but no purulent discharge Objective Last Vital Signs Temp 36.1 C L 09/22/23 11:36 Pulse 87 09/22/23 11:36 Resp 17 09/22/23 11:36 BP 88/54 L 09/22/23 11:36 Pulse Ox 92 09/22/23 11:36 Laboratory Results - last 24 hr 09/22/23 06:35 Sodium 130 L Potassium 4.9 Chloride 93 L Carbon Dioxide 25.5 Anion Gap 11.5 H BUN 69 H Creatinine 4.3 H* D Est GFR (CKD-EPI 2020) 14.42 Glucose 226 H Calcium 8.8 Time Spent with Patient Time Spent with Patient: >50 minutes Time was spent: preparing to see the patient(eg.review tests), obtaining and/or reviewing separately otained hiistory, ordering medications,tests, procedures, referring, communicating with other health critical care physician, indepentently interpreting results, counseling the patient and care coordination
--- NOTE | 2023-09-22 12:39 | W.UROLOGYCON ---
Date of service: 09/22/23 Time of Service: 12:39 Assessment and Plan Assessment and plan (1) Chronic renal disease, stage 3, moderately decreased glomerular filtration rate between 30-59 mL/min/1.73 square meter: Status: Chronic (2) Urinary tract infection: Status: Resolved Qualifiers: Hematuria presence: without hematuria Urinary tract infection type: acute cystitis Qualified Code(s): N30.00 - Acute cystitis without hematuria (3) Chronic wound: Status: Acute (4) Morbid obesity: Status: Acute Assessment and plan: We will leave the catheter in place until it is no longer needed for urine output treatments History of Present Illness History of Present Illness Chief Complaint: Urinary tract infection with sepsis Narrative: This is a 67-year-old gentleman who is currently hospitalized with sepsis. His blood cultures are negative, but his urine is growing E. coli. He has a history of an elevated serum creatinine, but the serum creatinine level is worsening. A Madison catheter is requested for better assessment of urine output. The nursing staff was unable to place the catheter, so I have been asked to do so. The patient has morbid obesity and diabetes. He has a history of Lan's gangrene. He tells me that he has had a urethral catheter in the past. He has no known history of urethral stricture disease. He has not had any type of prostate surgery in the past. [facility] All Active Problems (Updated 09/29/23 @ 00:09 by DOMINIQUE FARAH) Chronic renal disease, stage 3, moderately decreased glomerular filtration rate between 30-59 mL/min/1.73 square meter (Chronic) Kidney disease (Acute) Heart failure (Acute) Morbid obesity (Acute) Chronic wound (Acute) Hearing difficulty (Acute) Tinnitus (Acute) Neuropathy (Acute) Lower extremity edema (Acute) Medical History Wound infection Plaque psoriasis Thrush Dyspnea on exertion Headache Lateral epicondylitis Rotator cuff syndrome CHF (congestive heart failure) Edema Hip pain Hypoxia Arthralgia Vertigo Obesity Anemia Renal insufficiency Sore throat Vitamin D deficiency Cardiomyopathy Hypertension Tubular adenoma of colon Hypogonadism male Psoriasis Osteoarthritis Ventral incisional hernia Hypothyroidism Hyperlipidemia Depression Foot ulceration Erectile dysfunction B12 deficiency Chronic pain Morbid obesity Gout Chronic painful diabetic neuropathy Oral candidiasis Lumbar radiculopathy Diabetes mellitus, type II, insulin dependent COURTNEY (obstructive sleep apnea) Surgical History Colostomy reveresal Colonoscopy - MAC Colectomy Family History Mother Diabetes Essential hypertension AAA (abdominal aortic aneurysm) Kidney disease Heart problem COPD (chronic obstructive pulmonary disease) Father Pancreatic cancer Diabetes Angina pectoris Maternal Uncle Leukemia Maternal Grandmother Heart problem Other Brain aneurysm Social History Smoking/Tobacco Use Status: Former Tobacco Use Quit Date: 04/27/94 Pack-years: 24 Tobacco: How many years used: 16 Smoking risk assessment performed?: Yes Alcohol Intake: current Alcohol Intake frequency: holidays/special occasions only Drug use: Never Substance use type: does not use Housing: house Do you feel safe at home: Yes Do you feel safe in your relationship?: Yes Additional Social history: arrived soon after, supportive to pt's needs. Exam Narrative Exam Narrative: He is an obese gentleman who is cooperative with us. His vital signs are documented elsewhere, I unable to completely retract his foreskin but I am able to secure the glans with my left hand and retract the foreskin and till some of the glans is visible. The meatus itself was not visible but was palpable. He is awake and alert Results Last Vital Signs Temp 36.1 C L 09/22/23 11:36 Pulse 87 09/22/23 11:36 Resp 17 09/22/23 11:36 BP 88/54 L 09/22/23 11:36 Pulse Ox 92 09/22/23 11:36 Labs 09/28/23 06:20 09/28/23 06:20 Labs: Laboratory Results - last 24 hr 09/22/23 06:35 Sodium 130 L Potassium 4.9 Chloride 93 L Carbon Dioxide 25.5 Anion Gap 11.5 H BUN 69 H Creatinine 4.3 H* D Est GFR (CKD-EPI 2020) 14.42 Glucose 226 H Calcium 8.8 Insert Bladder Catheter Text: The patient was seen at the bedside. He was in the supine position. I was not able to visualize the urethral meatus, but I was able to secure the glans with my left hand. I prepped the penile skin with Betadine and instilled 2% Xylocaine jelly into the foreskin. I was then able to pass a 16 Martiniquais coud? tip catheter through the urethra into the bladder. We inflated the catheter balloon with 10 cc of sterile water. The catheter was hooked to gravity drainage. Tolerated the procedure well with no complications.
[2023-09-22 12:52] LABS: MRSA PCR Negative (Negative)
[2023-09-22] MEDS: Lactated Ringers 500 ML 1000 ML IV (13:17)
[2023-09-22 13:38] LABS: Bilirubin Negative (Negative); Blood Moderate (Negative); Clarity Sl Cloudy (Clear); Glucose Negative (Negative); Ketones Trace mg/dL (Negative); Leukocyte Esterase Moderate (Negative); Nitrite Negative (Negative); Urobilinogen 0.2 mg/dL (Up to 0.2); pH 5.5 (5-8)
[2023-09-22 13:49] LABS: WBC >50 HPF (0-5)
[2023-09-22 13:50] LABS: C & S Indicated? Yes
[2023-09-22] MEDS: Lactated Ringers 1,000 ML 100 ML IV ×2 (14:01→21:39)
[2023-09-22 14:24] LABS: Abs Immature Grans 0.06 10^3/uL (0.0-0.06); Absolute Basophil Count 0.06 10^3/uL (0.0-0.2); Absolute Eosinophil Count 0.24 10^3/uL (0.0-0.7); Absolute Lymphocyte Count 1.17 10^3/uL (1.2-3.4); Absolute Monocyte Count 0.95 10^3/uL (0.1-0.8); Absolute Neutrophil Count 6.03 10^3/uL (1.2-6.7); Basophils % 0.7 %; Eosinophils % 2.8 %; HCT 27.1 % (40.0-50.0); HGB 8.7 g/dL (13.5-17.5); Immature Grans % 0.7 %; Lymphocytes % 13.7 %; MCH 27.9 pg (27.0-33.0); MCHC 32.1 % (32.0-36.0); MCV 87 fL (80-95); MPV 9.8 fL (8.0-11.0); Monocytes % 11.2 %; Neutrophils % 70.9 %; Platelet Count 202 10^3/uL (130-400); RBC 3.12 10^6/uL (4.36-5.78); RDW 17.5 % (11.8-14.1); RDW-SD 55.3 fL; WBC 8.51 10^3/uL (4.4-10.8)
--- NOTE | 2023-09-22 14:45 | DI.US_ITS ---
Exam(s) US RENAL EXAM: US RENAL CLINICAL HISTORY: MICHAEL. TECHNIQUE: Snowden scale, color and spectral Doppler were used. COMPARISON: CT CT CHEST PE ABD PELVIS W from 09/20/2023 FINDINGS: Exam is limited by patient body habitus. Right kidney: 13.3 x 9.8 x 7.6 cm Echogenicity: Normal Hydronephrosis: No Cyst or mass: No Nephrolithiasis: No large calculi Left kidney: 11.8 x 5.3 x 5.4cm not well seen. Echogenicity: Normal Hydronephrosis: No Cyst or mass: No Nephrolithiasis: No large calculi Bladder:Not visualized. IMPRESSION: Limited exam due to patient body habitus. No hydronephrosis. DATA REPOSITORY:
[2023-09-22 14:55] LABS: Diff Comment Diff Reviewed; RBC Morphology Normal
--- NOTE | 2023-09-22 14:58 | PHA.REVIEW2 ---
Pharmacy Admission Review Admission Clinical Review Admission Pharmacy Review: (Updated 09/22/23 @ 12:38 by Wilmer Harris MD) Chronic renal disease, stage 3, moderately decreased glomerular filtration rate between 30-59 mL/min/1.73 square meter (Acute) Sepsis (Acute) Morbid obesity (Acute) Chronic wound (Acute) Urinary tract infection (Acute) Neuropathy (Acute) lisinopril [From Prinivil] Allergy (Severe, Verified 09/20/23 05:38) itching in throat hay fever Allergy (Unknown, Uncoded 07/19/23 08:54) Skin Rash Resuscitation Status Full Code Height 5 ft 10 in Weight 177 kg Pharmacy Admission Review Renal Dosing Renal Dosing: BUN 69 mg/dL (7-18) H 09/22/23 06:35 Creatinine 4.3 mg/dL (0.70-1.30) H* D 09/22/23 06:35 Medications needing adjustments: Intervened (CrCl 27.3 mL/min, BUN increased from 60 and SCr increased from 2.9) List of meds needing interventions: Changed enoxaparin dose. Spoke with provider regarding duloxetine and gabapentin. Provider put duloxetine on hold and gabapentin was changed from 600mg TID to 200mg TID Anticoagulation Anticoagulation: Hgb 8.7 g/dL (13.5-17.5) L 09/22/23 14:00 Hct 27.1 % (40.0-50.0) L 09/22/23 14:00 Plt Count 202 10^3/uL (130-400) 09/22/23 14:00 INR 1.1 (0.9-1.1) 09/20/23 05:00 Creatinine 4.3 mg/dL (0.70-1.30) H* D 09/22/23 06:35 DVT Prophylaxis: Intervened (changed enoxaparin dose from 40mg BID to 30mg daily due to CrCl < 30) Medications: Enoxaparin (30mg daily) Relevant Labs Relevant Labs: Sodium 130 mmol/L (136-145) L 09/22/23 06:35 Potassium 4.9 mmol/L (3.5-5.1) 09/22/23 06:35 Chloride 93 mmol/L (98-107) L 09/22/23 06:35 C-Reactive Protein 8.25 mg/dL (<or=0.5) H 09/20/23 05:00 Electrolytes, C-Reactive P, ESR: Reviewed (Na 130, Hgb decreased from 9.6 to 8.7) DM Control DM Control: Glucose 226 mg/dL (74-106) H 09/22/23 06:35 Finger Stick Blood Glucose 269 1223 Finger Stick Blood Glucose 269 1223 Finger Stick Blood Glucose 213 0740 Finger Stick Blood Glucose 213 0740 DM Control: Reviewed Insulin Dosing, Diabetic Medication: Has order for SS insulin with meals and carb correction and bedtime glargine Cardiac Review Cardiac Review: Troponin I < 50 ng/L (< or =60) 09/20/23 07:35 NT-Pro-B Natriuret Pep 2207 pg/mL (<300) H 09/20/23 05:00 Blood Pressure 92/68 1408 Blood Pressure 88/54 1136 Blood Pressure 105/62 0749 Blood Pressure 109/78 0540 BP, HR, EF%: Reviewed (BP 92/68 and HR WNL, Ox 91) QTc Review QTc: Reviewed (483 from 09/20/23) IV to PO Switch IV Medications: Reviewed (ceftriaxone) Home Meds Home Med List reviewed: Reviewed Relevent Home Meds Not ordered & why?: Furosemide (MICHAEL), meclizine (PRN) and spironolactone (MICHAEL) 2 patients own orders put in for patients insulin pump and Trulicity. Currently covered with SS/carb correction and bedtime glargine Current Meds Current Medication Order Review: Intervened Comments: Added IV admission set Pharmacy Antibiotic Review Relevant Labs: WBC 8.51 10^3/uL (4.4-10.8) 09/22/23 14:00 Procalcitonin 0.3 ng/mL 09/20/23 05:00 Temperature 36 C Temperature 36.1 C Temperature 36.7 C Temperature 36.4 C Microbiology 09/20/23 05:20 Urine Culture - Preliminary Urine - Reflex from Ua Escherichia coli 09/20/23 05:36 Blood Culture - Preliminary Blood NO GROWTH 48 HOURS 09/20/23 05:00 Blood Culture - Preliminary Blood NO GROWTH 48 HOURS Pharmacy Antibiotic Activity: Abx regimen adjustment and C/S review Comments: Patient is now on ceftriaxone, day 1 for sepsis UTI. Patient had been on Zyvox and Zosyn. Zosyn was discontinued this morning. I reached out to provider regarding use of Zyvox with duloxetine and amitriptyline. Provider discontinued Zyvox. Repeat urine culture pending, sensitives pending for 1st one (E. coli).
[2023-09-22] MEDS: Perflutren Lipid Microspheres 1.5 ML VIAL IV (15:45)
[2023-09-22] MEDS: traMADol 50 MG TAB PO (16:59)
--- NOTE | 2023-09-22 17:14 | PDOC.CMIN ---
Date of service: 09/22/23 Time of Service: 17:15 Care Management Initial Assmt Initial Assessment Reason for Hospitalization: Sepsis, UTI Functional Status/Living Situation Patient Presentation: Beny was sitting up in bed when CM met with him. His , Jie was in the room visiting. He stated that he is feeling very weak and not well today, and that he had to have a catheter placed due to urinary retention. He and his discussed how Beny was discharged from [facility] last Thursday, and feel that he has had a set back from being sick and coming in to the hospital so soon after discharge. He would like to consider short term rehab again, but would prefer not to go to [facility]. Instead, he and his [facility]. CM requested a PT consult in order to complete and send referrals, as requested. Jie stated that his insurance had decided to stop paying for rehab, which is why he had discharged home. CM explained that he may not have any SNF benefit if that is the case; Jie expressed understanding and stated that if his insurance will not pay for rehab, she will plan for him to return home with new orders for HH PT and OT for support at home. CM will continue to follow. Town of Residence: [place] Resides with: Spouse (, Jie) Medications Medication Management: No Issues/Barriers identified Physical Functioning/Mobility Assistive Device: FWW Advance Directives Advance Directives: Do you have an Advance Directive: N 11/02/12 12:54 AD On File at [facility]: N 06/25/12 13:14 Date Asked 09/03/23 09/03/23 09:44 AD Date Reviewed COLST On File at [facility] COLST Date Scanned Code Status Resuscitation Status Full Code Insurance Coverage/Financial Issues Insurance: [employer] MCR replacement Care Team Visit Care Team Role Provider Type Goldie Gutierrez MD Primary Care Provider [facility] STAFF PHYSICIAN Mitra Talamantes Other Providers OTHER Booker Seymour MD Other Providers [facility] STAFF PHYSICIAN Leonora Hollingsworth MD Emergency Provider [facility] STAFF PHYSICIAN Flavio Cobb Admit Provider [facility] STAFF PHYSICIAN Attending Provider Discharge Potential Discharge Needs: PT Evaluation Anticipated Barriers to Discharge: Medical Status Patient/Family Education Needs: Review discharge instructions, discuss Ask Me Three Transportation: [facility] RCT Transportation: Wheel chair van Plan: Beny will be evaluated by PT for discharge recommendations. CM will send referrals to SNF choices, if indicated. Anticipate Beny will go to SNF vs home with new PT, OT. He will transport via RCT w/c van, as he is not currently able to transport by private vehicle. He will follow up with his PCP and discharge plan of care. CM will continue to follow. PFSH All Active Problems (Updated 09/22/23 @ 12:38 by Wilmer Harris MD) Chronic renal disease, stage 3, moderately decreased glomerular filtration rate between 30-59 mL/min/1.73 square meter (Acute) Sepsis (Acute) Kidney disease (Acute) Heart failure (Acute) Morbid obesity (Acute) Chronic wound (Acute) Urinary tract infection (Acute) Hearing difficulty (Acute) Tinnitus (Acute) Neuropathy (Acute) Lower extremity edema (Acute) Medical History Wound infection Plaque psoriasis Thrush Dyspnea on exertion Headache Lateral epicondylitis Rotator cuff syndrome CHF (congestive heart failure) Edema Hip pain Hypoxia Arthralgia Vertigo Obesity Anemia Renal insufficiency Sore throat Vitamin D deficiency Cardiomyopathy Hypertension Tubular adenoma of colon Hypogonadism male Psoriasis Osteoarthritis Ventral incisional hernia Hypothyroidism Hyperlipidemia Depression Foot ulceration Erectile dysfunction B12 deficiency Chronic pain Morbid obesity Gout Chronic painful diabetic neuropathy Oral candidiasis Lumbar radiculopathy Diabetes mellitus, type II, insulin dependent COURTNEY (obstructive sleep apnea) Surgical History Colostomy reveresal Colonoscopy - MAC Colectomy Family History Mother Diabetes Essential hypertension AAA (abdominal aortic aneurysm) Kidney disease Heart problem COPD (chronic obstructive pulmonary disease) Father Pancreatic cancer Diabetes Angina pectoris Maternal Uncle Leukemia Maternal Grandmother Heart problem Other Brain aneurysm Social History Smoking/Tobacco Use Status: Former Tobacco Use Quit Date: 04/27/94 Pack-years: 24 Tobacco: How many years used: 16 Smoking risk assessment performed?: Yes Alcohol Intake: current Alcohol Intake frequency: holidays/special occasions only Drug use: Never Substance use type: does not use Housing: house Do you feel safe at home: Yes Do you feel safe in your relationship?: Yes Additional Social history: arrived soon after, supportive to pt's needs. SDOH(Care Management) Screening Will the Patient Participate in the Screening?: Declined to provide
[2023-09-22] MEDS: Pravastatin 40 MG TAB PO (21:27)
[2023-09-22] MEDS: Gabapentin 100 MG CAP 200 MG PO (21:28)
[2023-09-22] MEDS: Amitriptyline 25 MG TAB 12.5 MG PO (21:28)
[2023-09-22] MEDS: Insulin Glargine 300 UNITS/3 ML PEN 30 UNITS SC (21:36)
[2023-09-23] VITALS (9 sets, daily range): BP systolic 101–130; BP diastolic 60–96; PULSE 77–92; RESP 16–20; TEMP 35.8–36.5; O2SAT 92–98
[2023-09-23] MEDS: Levothyroxine 200 MCG TAB PO (06:51)
[2023-09-23] MEDS: Lactated Ringers 1,000 ML 100 ML IV (07:26)
[2023-09-23] MEDS: Insulin Aspart 300 UNITS/3 ML PEN 10 UNITS SC ×2 (08:19→12:08)
[2023-09-23] MEDS: Insulin Aspart 300 UNITS/3 ML PEN SC ×4 (08:20→17:22)
[2023-09-23 09:04] LABS: Abs Immature Grans 0.11 10^3/uL (0.0-0.06); Absolute Basophil Count 0.06 10^3/uL (0.0-0.2); Absolute Eosinophil Count 0.27 10^3/uL (0.0-0.7); Absolute Lymphocyte Count 1.06 10^3/uL (1.2-3.4); Absolute Monocyte Count 0.71 10^3/uL (0.1-0.8); Absolute Neutrophil Count 6.21 10^3/uL (1.2-6.7); Basophils % 0.7 %; Eosinophils % 3.2 %; HGB 10.2 g/dL (13.5-17.5); Immature Grans % 1.3 %; Lymphocytes % 12.6 %; MCHC 31.9 % (32.0-36.0); MCV 88 fL (80-95); MPV 9.5 fL (8.0-11.0); Monocytes % 8.4 %; Neutrophils % 73.8 %; Platelet Count 225 10^3/uL (130-400); RBC 3.64 10^6/uL (4.36-5.78); RDW 17.4 % (11.8-14.1); RDW-SD 55.5 fL; WBC 8.42 10^3/uL (4.4-10.8)
[2023-09-23] MEDS: Gabapentin 100 MG CAP 200 MG PO ×3 (09:06→19:47)
[2023-09-23] MEDS: Metoprolol CR 50 MG TABCR PO (09:06)
[2023-09-23] MEDS: Enoxaparin 30 MG/0.3 ML SYR SC (09:07)
[2023-09-23] MEDS: Aspirin E.C. 81 MG TABEC PO (09:07)
[2023-09-23] MEDS: Nystatin CREAM 30 GM TUBE TP ×2 (09:08→19:48)
[2023-09-23 09:12] LABS: ESR 51 mm/hr (0-20)
[2023-09-23 09:24] LABS: Anion Gap 13.6 mmol/L (3-11); BUN 76 mg/dL (7-18); CO2 24.4 mmol/L (21.0-32.0); Calcium 8.8 mg/dL (8.5-10.1); Chloride 91 mmol/L (98-107); Estimated GFR 11.48 (mL/min/1.73m2); Glucose 212 mg/dL (74-106); Potassium 4.5 mmol/L (3.5-5.1); Sodium 129 mmol/L (136-145)
[2023-09-23 09:25] LABS: C-Reactive Protein 7.94 mg/dL (<or=0.5)
[2023-09-23 09:27] LABS: CREATININE 5.2 mg/dL (0.70-1.30)
[2023-09-23] MEDS: cefTRIAXone 2 GM/50 ML BAG IVPB (10:02)
[2023-09-23] MEDS: Normal Saline Flush 10 ML SYR IVP (10:10)
--- NOTE | 2023-09-23 11:34 | PT.INIE ---
PT Notes Visit Reasons: Sepsis,UTI Physical Therapy Inpatient Initial Evaluation Date: 09/23/2023 Referring Doctor: Wilmer Alas MD PT Orders: PT CONSULT: Limited ability Precautions: Fall. Standard. Activity as tolerated. Patient Profile/Admitting Diagnosis: Beny is a 67-year-old male with recent COVID-19 infection who presented to the ED from [facility] on 09/20/2023 due to generalized weakness and difficulty with ambulation and SOB with exertion. Patient is admitted for management of sepsis, urinary tract infection, type II DM, cardiomyopathy, anemia, chronic wound, neuropathy, COURTNEY, and chronic renal disease stage III. PMHX: All Active Problems Chronic renal disease, stage 3, moderately decreased glomerular filtration rate between 30-59 mL/min/1.73 square meter (Acute) Sepsis (Acute) Kidney disease (Acute) Heart failure (Acute) Morbid obesity (Acute) Chronic wound (Acute) Urinary tract infection (Acute) Hearing difficulty (Acute) Tinnitus (Acute) Neuropathy (Acute) Lower extremity edema (Acute) Medical History Wound infection Plaque psoriasis Thrush Dyspnea on exertion Headache Lateral epicondylitis Rotator cuff syndrome CHF (congestive heart failure) Edema Hip pain Hypoxia Arthralgia Vertigo Obesity Anemia Renal insufficiency Sore throat Vitamin D deficiency Cardiomyopathy Hypertension Tubular adenoma of colon Hypogonadism male Psoriasis Osteoarthritis Ventral incisional hernia Hypothyroidism Hyperlipidemia Depression Foot ulceration Erectile dysfunction B12 deficiency Chronic pain Morbid obesity Gout Chronic painful diabetic neuropathy Oral candidiasis Lumbar radiculopathy Diabetes mellitus, type II, insulin dependent COURTNEY (obstructive sleep apnea) Surgical History Colostomy reveresal Colonoscopy - MAC Colectomy Social History/Home Situation: Lives with in a private home. Independent household ambulator prior to admission. Was doing well at SNF, being able to cover up to 60-75 feet with FWW until he was diagnosed with COVID-19 infection and was placed on isolation for 10 days. Equipment Owned/DME: FWW Subjective: Feels much better today. Agreeable to getting out of bed and walking using walker. Did not report any lightheadedness thorughout session. Minimal shortness of breath that resolved with rest Objective: General Observation: IV through both UE. Madison catheter in place. Telemetry monitoring in place. Mental Status: Alert and oriented as to person, place, time, and purpose. Able to pay attention, focus, and respond appropriately. Pain: None reported Vital Signs: Closely monitored by nursing staff ROM: Right Upper Extremity: Shoulder Flexion WFL. Shoulder abduction WFL. Elbow flexion WFL. Wrist flexion WFL. Functional opening and closing of hand WFL. Left Upper Extremity: Shoulder Flexion WFL. Shoulder abduction WFL. Elbow flexion WFL. Wrist flexion WFL. Functional opening and closing of hand WFL. Right Lower Extremity: Hip flexion WFL. Hip abduction WFL. Knee flexion WFL. Ankle dorsiflexion WFL. Ankle plantarflexion WFL. Left Lower Extremity: Hip flexion WFL. Hip abduction WFL. Knee flexion WFL. Ankle dorsiflexion WFL. Ankle plantarflexion WFL. Strength: Right Upper Extremity: Shoulder flexors 4-/5. Shoulder abductors 4-/5. Elbow flexors 4-/5. Elbow extensors 4-/5. Enrollment Management Manager strong. Left Upper Extremity: Shoulder flexors 4-/5. Shoulder abductors 4-/5. Elbow flexors 4-/5. Elbow extensors 4-/5. Enrollment Management Manager strong. Right Lower Extremity: Hip flexors 4-/5. Hip abductors 4-/5. Knee flexors 4/5. Knee extensors 4-/5. Ankle dorsiflexors 4-/5. Ankle plantarflexors 4-/5. Left Lower Extremity: Hip flexors 4-/5. Hip abductors 4-/5. Knee flexors 4/5. Knee extensors 4-/5. Ankle dorsiflexors 4-/5. Ankle plantarflexors 4-/5. Bed Mobility/Transfers: Minimal cueing provided for use of B hands as needed for support, movement sequence, AD management, and posture to reduce fall risk and minimize pain report Supine to sit moderate assist Sit to stand contact guard assist with FWW Stand to sit contact guard assist with FWW Bed to reclining chair contact guard assist with FWW Gait: 15 steps from edge of bed to first door in room before he turned around, walked to his bedisde recliner, and sat using FWW. Step-to gait pattern, contact guard adn IV pole management only by PT. No LOB. MIld SOb that resolved with rest. Verbal cueing only fro AD management and directional change for safety. Balance: Static Sitting: Normal Dynamic Sitting: Good Static Standing: Fair Dynamic Standing: Fair Special Tests: Mobility Limitations Standardized Measure [facility] AM-PAC 6 clicks Basic Mobility Inpatient Short Form: Raw Score: 18 CMS Score: 47% deficit Informed Consent/Education: Patient was instructed in purpose of PT consult and plan of care. Agreeable to proceed with established PT POC to achieve personal goals. Assessment: Patient presents with clinical signs and symptoms consistent with current/admitting diagnoses that have resulted to mobility limitations, gait instability, generalized weakness, and overall ADL decline as demonstrated by the following impairment level findings: 1. Decreased strength to B UE/LE major muscle groups 2. Impaired sitting/standing balance 3. Impaired activity tolerance 4. Limitation of joint range of motion in B hips due to abdominal pannus 5. Shortness of breath on exertion, mild Impairments are contributing to the following functional limitations: 1. Decline in bed mobility skills 2. Decline in transfer skills 3. Difficulty with ambulation without assistive device and physical assistance 4. Increased completion time for mobility ADL performance 5. Increased risk for falls 6. Difficulty with managing steps alone safely Patient is assessed as a 58414 moderate complexity based on the following: History: 67-year-old male with past medical history as indicated above Examination: Demonstrable impairment in strength, balance, and mobility level with underlying impairments and functional limitations as exhibited above as well as deficit score of 47% utilizing the [facility] Mobility Inpatient Short Form Presentation: Evolving Decision Makin moderate complexity Goals: Goals X1 week 1. Supine-Sit independent 2. Sit-Supine independent 3. Sit-Stand independent 4. Stand-Sit independent with FWW 5. Bed-Chair independent with FWW 6. Chair-Bed independent with FWW 7. Independent gait on level surface with use of FWW for at least 300 feet without report of pain nor dyspnea 8. Independent stair negotiation while holding onto B rails for at least 3 steps without report of pain nor dyspnea 9. Independent with home exercise program 10. Good static and dynamic standing balance/tolerance Plan of Care/Treatment Plan: 1-2x/day, 7 days/week x 1 week. Plan of care has been reviewed with the COMMUNITY BOARD MEMBER providing the service under Physical Therapy direction. Initiate Physical Therapy intervention for pain management as needed, strengthening, bed mobility, transfers, gait, stairs, balance training, and use of assistive device. DISCHARGE RECOMMENDATIONS: [] Home with no services [] [X] Home with services. Patient will benefit from home health PT services in order to progress mobility level using least restrictive assistive ambulatory device, assess home safety, identify additional equipment needs, and establish a functional maintenance program that will increase ability of patient to remain at home. [] Home with outpatient PT [] [] SNF for continued rehabilitation [] [] Principal Technical Writer Care [] [] SNF versus LTC based on ability to participate and progress [] TREATMENT CODE/TIME: 53771 x 20 minutes for 1 unit (11:34-11:54). Thank you for the opportunity to participate in the care of this patient. Viridiana Crowley PT, DPT, CLT [facility] [place], [place]
[2023-09-23] MEDS: Acetaminophen 325 MG TAB PO ×2 (13:54→19:50)
--- NOTE | 2023-09-23 14:02 | NUR.NOTE ---
Changed quiroga bag to one with a urometer per Hospitalist request for closer output observation. Nursing Note:
--- NOTE | 2023-09-23 15:24 | PGE_ITS ---
Date of Service Date of service: 09/23/23 Time of Service: 15:24 Assessment and Plan Assessment and plan (1) Sepsis: Status: Acute Assessment and plan: Met sepsis criteria on admission. Blood cultures NGTD, urine culture E coli pansensitive except to ampicillin. dc Zyvox and Zosyn and change to ceftriaxone 2 gm daily as of yesterday (so today d#2, will need 7 days of treatment. No longer showing signs of sepsis but having the resultant organ dysfunction w/ MICHAEL from hypotension and d/t contrast given for his CT chest/abdomen and pelvis done on 09/19. Renal US from yesterday did not show any obstructive process nor renal abscess or stones. Source of sepsis is likely UTI. urine culture from 09/17 and 09/19 grew E. coli however repeat from 09/21 shows no growth. Qualifiers: Sepsis type: Escherichia coli Sepsis acute organ dysfunction status: wi th acute organ dysfunction Severe sepsis acute organ dysfunction type: acute renal failure Acute renal failure type: unspecified Severe sepsis shock status: without septic shock Qualified Code(s): A41.51 - Sepsis due to Escherichia coli [E. coli]; R65.20 - Severe sepsis without septic shock; N17.9 - Acute kidney failure, unspecified (2) Urinary tract infection: Status: Acute Assessment and plan: CT scan of abdomen and pelvis demonstrated bladder wall thickening but no evidence for stones or hydronephrosis however, left kidney is atrophic. renal US negative for stones or obstruction Qualifiers: Urinary tract infection type: acute cystitis Hematuria presence: without hematuria Qualified Code(s): N30.00 - Acute cystitis without hematuria (3) Diabetes mellitus, type II, insulin dependent: Assessment and plan: changes his lantus to NPH along w/ sliding scale novolog coverage given his worsening renal function. (4) Cardiomyopathy: Assessment and plan: With history of HFrEF. He may be developing some congestion. his lungs w/ diffuse expiratory wheezes, however, US of lungs did not show B lines. I have reduced his iv fluid rate but may dc fluids altogether and just allow equilibation of his fluid status as he is taking in po. Qualifiers: Cardiomyopathy type: dilated Qualified Code(s): I42.0 - Dilated cardiomyopathy (5) Anemia: Assessment and plan: Near baseline, possibly CKD related. no active bleed. Qualifiers: Anemia type: due to chronic kidney disease Chronic kidney disease stage: stage 3 (moderate) Chronic kidney disease stage 3 subtype: stage 3b (GFR 30-44) Qualified Code(s): N18.32 - Chronic kidney disease, stage 3b; D63.1 - Anemia in chronic kidney disease (6) Chronic wound: Status: Acute Assessment and plan: This does not look infected. Continue wound care, keep clean. Question of free air vs skin fold on CT, no evidence of active infection or crepitus on exam so I suspect the latter. (7) Neuropathy: Status: Acute Assessment and plan: Cut back TCA dose (he is also on gabapentin and SNRI) as may increase risk of urine infection (8) Chronic renal disease, stage 3, moderately decreased glomerular filtration rate between 30-59 mL/min/1.73 square meter: Status: Acute Assessment and plan: worsening azotemia and oliguria. possible contrast induced and worsened but recent administration of losartan and hypotension. continue to monitor. his urine output seems to be picking up today. will monitor U.O. and daily BMP. (9) Morbid obesity: Status: Acute Assessment and plan: on GLP-1. This complicates the wound infection, but it is healing per report. Subjective Subjective Interval history since last seen: Beny has no acute complaints today. Madison was placed yesterday by Dr. Seymour. Overnight he had only 200 mL in U.O. from midnight to 8 am. however today his urine output is picking up. He has had 830 mL since 8 a.m. However, his creatinine has gone up to 5.2 and BUN 76, however, K remains normal at 4.5. He is on LR at 100 mL/hr. Exam Narrative Exam Narrative: Morbidly obese male who is alert and oriented, lying in bed, no acute distress, he is now requiring some oxygen during the day. Currently on 2 lpm w/ SPO2 of 96%. (he usually wears oxygen during the night for his COURTNEY) Lungs: diffuse end expiratory wheezing, no rhonchi or rales Heart: regular, no appreciable murmur but difficult to hear d/t his obesity Abdomen: reducible abdominal wall hernia, soft, nontender, normal bowel sounds legs: trace to 1+ edema Madison draining clear yellow urine Objective Last Vital Signs Temp 36.2 C L 09/23/23 11:32 Pulse 86 09/23/23 11:32 Resp 18 09/23/23 11:32 BP 113/67 09/23/23 11:32 Pulse Ox 96 09/23/23 11:32 Laboratory Results - last 24 hr 09/23/23 08:45 WBC 8.42 RBC 3.64 L Hgb 10.2 L Hct 32.0 L MCV 88 MCH 28.0 MCHC 31.9 L RDW 17.4 H Plt Count 225 MPV 9.5 Immature Gran % 1.3 Neutrophils % 73.8 Lymphocytes % 12.6 Monocytes % 8.4 Eosinophils % 3.2 Basophils % 0.7 Nucleated RBC % 0.0 Absolute Neutrophils 6.21 Absolute Lymphocytes 1.06 L Absolute Monocytes 0.71 Absolute Eosinophils 0.27 Absolute Basophils 0.06 ESR 51 H Sodium 129 L Potassium 4.5 Chloride 91 L Carbon Dioxide 24.4 Anion Gap 13.6 H BUN 76 H Creatinine 5.2 H* Est GFR (CKD-EPI 2020) 11.48 Glucose 212 H Calcium 8.8 C-Reactive Protein 7.94 H Time Spent with Patient Time Spent with Patient: 35-49 minutes Time was spent: preparing to see the patient(eg.review tests), ordering medications,tests, procedures, referring, communicating with other health gericare aide teacher, indepentently interpreting results, counseling the patient and care coordination
[2023-09-23] MEDS: Lactated Ringers 1,000 ML 65 ML IV (17:18)
[2023-09-23] MEDS: Insulin NPH-Human 300 UNITS/3 ML PEN 20 UNIT SC (17:19)
--- NOTE | 2023-09-23 17:41 | PDOC.CMPRO ---
Date of service: 09/23/23 Time of Service: 17:41 Care Management Progress Note Progress Note Text Progress Note Text: Beny was sleeping soundly, CM wrote plan for HH/PT per recommendation on white board. Discharge Anticipated Barriers to Discharge: None Identified Patient/Family Education Needs: Review discharge instructions, discuss Ask Me Three Transportation: RCT RCT Transportation: Wheel chair van Plan: Beny will return home with new HH PT, OT. He will transport via RCT w/c van, as he is not currently able to transport by private vehicle. He will follow up with his PCP and discharge plan of care. CM will continue to follow. SDOH(Care Management) Screening Will the Patient Participate in the Screening?: Declined to provide
--- NOTE | 2023-09-23 17:44 | RESPIRATORY ---
Patient wears 2L of Oxygen at night at baseline. DME: [facility]. No O2 requirements during the day.
[2023-09-23] MEDS: Amitriptyline 25 MG TAB 12.5 MG PO (19:47)
[2023-09-23] MEDS: Pravastatin 40 MG TAB PO (19:47)
[2023-09-24] MEDS: Acetaminophen 325 MG TAB PO ×3 (01:19→20:09)
[2023-09-24] MEDS: traMADol 50 MG TAB PO (02:47)
[2023-09-24 03:04] VITALS: BP 108/56; PULSE 92; RESP 16; TEMP 36.6; O2SAT 95
[2023-09-24] MEDS: Levothyroxine 200 MCG TAB PO (05:24)
[2023-09-24 05:32] VITALS: BP 110/64
[2023-09-24 07:48] VITALS: BP 121/63; PULSE 91; RESP 20; TEMP 36.1; O2SAT 96
[2023-09-24] MEDS: Enoxaparin 30 MG/0.3 ML SYR SC (08:50)
[2023-09-24] MEDS: Metoprolol CR 50 MG TABCR PO (08:52)
[2023-09-24] MEDS: Aspirin E.C. 81 MG TABEC PO (08:52)
[2023-09-24] MEDS: Gabapentin 100 MG CAP 200 MG PO ×3 (08:52→20:08)
[2023-09-24] MEDS: Insulin NPH-Human 300 UNITS/3 ML PEN 20 UNIT SC ×2 (08:55→17:49)
[2023-09-24] MEDS: Insulin Aspart 300 UNITS/3 ML PEN SC ×6 (08:57→17:48)
--- NOTE | 2023-09-24 08:59 | PDOC.CMPRO ---
Date of service: 09/24/23 Time of Service: 08:59 Care Management Progress Note Progress Note Text Progress Note Text: S/O:Beny was sitting up in bed visiting with his Jie when CM met with him. He was pleasant and cooperative and engaged well in conversation. Beny and Jie reviewed Beny's recent medical history with CM and the fact that he was at [facility] for over 5 weeks and has only been home for a few days. Beny continues to feel weak and deconditioned and stated that he would be willing to go to rehab again as he is not sure he can manage at home. He had a PT evaluation yesterday and home health PT was recommended. Unless a re-evaluation recommends SNF, he would likely not qualify. Additionally, it is unlikely his insurance company would pay for another SNF stay. Beny had just started receiving home health services last Thursday and those services, RN, PT, OT, FATBACK TRIMMER would resume upon discharge. CM also discussed [facility] [place] [facility] A[facility]. Allison are very interested in a referral for [facility], education and assistance with insurance plans and possibly case management. A: Beny is a 67 year old man admitted on 09/20/23 with sepsis Discharge Potential Discharge Needs: PCP F/U Appt and Surgical F/U Appt Anticipated Barriers to Discharge: Medical Status Patient/Family Education Needs: Review discharge instructions, discuss Ask Me Three and Other (activity, limitations, follow up plan) Transportation: RCT (wheelchair van with a bariatric wheelchair) RCT Transportation: Wheel chair van Plan: Anticipate Beny will be discharged home with a resumption of home health services for PT, OT, RN and FATBACK TRIMMER, when cleared by provider. If PT determines that Beny could benefit from SNF again, Beny would like referrals sent to [facility] as a large part of the family lives in [place]. He will follow up with his PCP, surgeon and plan of care and transport with family. CM will follow and continue to assess for discharge needs. SDOH(Care Management) Screening Will the Patient Participate in the Screening?: Declined to provide
[2023-09-24] MEDS: Nystatin CREAM 30 GM TUBE TP ×2 (09:01→20:10)
[2023-09-24] MEDS: Normal Saline Flush 10 ML SYR IVP (09:01)
[2023-09-24 09:33] LABS: Abs Immature Grans 0.13 10^3/uL (0.0-0.06); Absolute Basophil Count 0.05 10^3/uL (0.0-0.2); Absolute Eosinophil Count 0.28 10^3/uL (0.0-0.7); Absolute Lymphocyte Count 0.86 10^3/uL (1.2-3.4); Absolute Neutrophil Count 4.82 10^3/uL (1.2-6.7); Basophils % 0.7 %; Eosinophils % 4.2 %; HCT 31.2 % (40.0-50.0); HGB 10.1 g/dL (13.5-17.5); Immature Grans % 1.9 %; Lymphocytes % 12.8 %; MCH 28.1 pg (27.0-33.0); MCHC 32.4 % (32.0-36.0); MCV 87 fL (80-95); Monocytes % 8.9 %; Neutrophils % 71.5 %; Platelet Count 198 10^3/uL (130-400); RDW 16.8 % (11.8-14.1); RDW-SD 53.3 fL; WBC 6.74 10^3/uL (4.4-10.8)
[2023-09-24] MEDS: cefTRIAXone 2 GM/50 ML BAG IVPB (09:34)
[2023-09-24 09:44] LABS: Anion Gap 8.1 mmol/L (3-11); BUN 69 mg/dL (7-18); CO2 28.9 mmol/L (21.0-32.0); Calcium 9.2 mg/dL (8.5-10.1); Chloride 96 mmol/L (98-107); Estimated GFR 17.85 (mL/min/1.73m2); Glucose 220 mg/dL (74-106); Potassium 4.1 mmol/L (3.5-5.1); Sodium 133 mmol/L (136-145)
[2023-09-24 09:49] LABS: CREATININE 3.6 mg/dL (0.70-1.30)
[2023-09-24 10:03] LABS: Procalcitonin 0.5 ng/mL
[2023-09-24 11:05] VITALS: BP 133/65; PULSE 89; RESP 20; TEMP 36.3; O2SAT 96
--- NOTE | 2023-09-24 14:41 | W.PM.PROGNOT ---
Date of Service Date of service: 09/24/23 Time of Service: 14:41 Assessment and Plan Assessment and plan (1) Sepsis: Status: Acute Assessment and plan: Met sepsis criteria on admission. Blood cultures NGTD, urine culture E coli pansensitive except to ampicillin. dc Zyvox and Zosyn and change to ceftriaxone 2 gm daily as of yesterday (so today d#3, will need 7 days of treatment total including Zosyn (09/19-09/21). No longer showing signs of sepsis but having the resultant organ dysfunction w/ MICHAEL from hypotension and d/t contrast given for his CT chest/abdomen and pelvis done on 09/19. Renal US did not show any obstructive process nor renal abscess or stones. Source of sepsis is likely UTI. urine culture from 09/17 and 09/19 grew E. coli however repeat from 09/21 shows no growth. I will have him complete Ceftriaxone while here but after treatment for at least 7 days we should be able to stop antibiotics. Qualifiers: Acute renal failure type: unspecified Sepsis acute organ dysfunction status: with acute organ dysfunction Sepsis type: Escherichia coli Severe sepsis acute organ dysfunction type: acute renal failure Severe sepsis shock status: without septic shock Qualified Code(s): A41.51 - Sepsis due to Escherichia coli [E. coli]; R65.20 - Severe sepsis without septic shock; N17.9 - Acute kidney failure, unspecified (2) MICHAEL (acute kidney injury): Status: Acute Assessment and plan: Creatinine peaked at 5.2 on 09/22, now 3.6 and having over 3 liter of u.o. No obstruction on renal US. Likely cause is multifactorial including sepsis, hypotension, contrast. Baseline creatinine is around 2.0 (3) Urinary tract infection: Status: Acute Assessment and plan: CT scan of abdomen and pelvis demonstrated bladder wall thickening but no evidence for stones or hydronephrosis however, left kidney is atrophic. renal US negative for stones or obstruction Qualifiers: Hematuria presence: without hematuria Urinary tract infection type: acute cystitis Qualified Code(s): N30.00 - Acute cystitis without hematuria (4) Chronic renal disease, stage 3, moderately decreased glomerular filtration rate between 30-59 mL/min/1.73 square meter: Status: Acute Assessment and plan: worsening azotemia and oliguria. possible contrast induced and worsened but recent administration of losartan and hypotension. continue to monitor. his urine output seems to be picking up today. will monitor U.O. and daily BMP. (5) Diabetes mellitus, type II, insulin dependent: Assessment and plan: changes his lantus to NPH along w/ sliding scale novolog coverage given his worsening renal function. (6) Cardiomyopathy: Assessment and plan: No evidence of acute CHF. IV fluids stopped now that he renal function is beginning to recover Qualifiers: Cardiomyopathy type: dilated Qualified Code(s): I42.0 - Dilated cardiomyopathy (7) Anemia: Assessment and plan: Near baseline, possibly CKD related. no active bleed. Qualifiers: Anemia type: due to chronic kidney disease Chronic kidney disease stage: stage 3 (moderate) Chronic kidney disease stage 3 subtype: stage 3b (GFR 30-44) Qualified Code(s): N18.32 - Chronic kidney disease, stage 3b; D63.1 - Anemia in chronic kidney disease (8) Chronic wound: Status: Acute Assessment and plan: This does not look infected. Continue wound care, keep clean. Question of free air vs skin fold on CT, no evidence of active infection or crepitus on exam so I suspect the latter. (9) Neuropathy: Status: Acute Assessment and plan: Cut back TCA dose (he is also on gabapentin and SNRI) as may increase risk of urine infection Subjective Subjective Interval history since last seen: Beny states he is feeling better. No acute complaints. Had BM yesterday. No abdominal pains or nausea and no dyspnea or CP. I explained to him and his that his renal function is starting recover. Creatinine is down to 3.6 and his urine output is up to 3 liters per day. At this point I have stopped his iv fluids as he is taking in adequate po and given his cardiomyopathy, I did not want to put him into acute CHF. 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 he has been on spironolactone and losartan in the past. Once his renal function has recovered to baseline, we may be able to re-introduce those meds. For now I am holding on diuretics but have stopped any iv fluids other than his antibiotics. Exam Narrative Exam Narrative: Obese, white male, pleasant, alert and oriented, no distress, talking w/ case management and his Lungs: clear Heart: RRR, no murmur or rub Abdomen: obese, soft, umbilical hernia, reducible quiroga draining clear yellow urine Objective Last Vital Signs Temp 36.3 C L 09/24/23 11:05 Pulse 89 09/24/23 11:05 Resp 20 09/24/23 11:05 BP 133/65 09/24/23 11:05 Pulse Ox 96 09/24/23 11:05 Laboratory Results - last 24 hr 09/24/23 09:04 WBC 6.74 RBC 3.60 L Hgb 10.1 L Hct 31.2 L MCV 87 MCH 28.1 MCHC 32.4 RDW 16.8 H Plt Count 198 MPV 9.0 Immature Gran % 1.9 Neutrophils % 71.5 Lymphocytes % 12.8 Monocytes % 8.9 Eosinophils % 4.2 Basophils % 0.7 Nucleated RBC % 0.0 Absolute Neutrophils 4.82 Absolute Lymphocytes 0.86 L Absolute Monocytes 0.60 Absolute Eosinophils 0.28 Absolute Basophils 0.05 Sodium 133 L Potassium 4.1 Chloride 96 L Carbon Dioxide 28.9 Anion Gap 8.1 BUN 69 H Creatinine 3.6 H* D Est GFR (CKD-EPI 2020) 17.85 Glucose 220 H Calcium 9.2 Procalcitonin 0.5 Time Spent with Patient Time Spent with Patient: >50 minutes Time was spent: preparing to see the patient(eg.review tests), obtaining and/or reviewing separately otained hiistory, ordering medications,tests, procedures, referring, communicating with other health child care attendant, indepentently interpreting results, counseling the patient (including his , CM and nursing) and care coordination
[2023-09-24 15:52] VITALS: BP 127/74; PULSE 94; RESP 20; TEMP 36.7; O2SAT 95
--- NOTE | 2023-09-24 16:46 | PTTR_ITS ---
PT Notes Visit Reasons: Sepsis,UTI Date: 09/24/23 PRECAUTIONS: Fall. Standard. Activity as tolerated. SUBJECTIVE: pt in bed when approached for therapy this afternoon, pt expressed concern about not being able to progress if pt goes home due to difficulty with breathing. would like to go for Short term SNF to address weakness and balance issues, pt agreed to participating with therapy session. OBJECTIVE: ? IV through both UE. Quiroga catheter in place. Telemetry monitoring in place.? NC on 2L O2 support ? PAIN: VITALS: Closely monitored by nursing ? Therapeutic Activities 34714: Direct one-on-one instruction in dynamic activities to improve functional performance. ?? BED MOBILITY/TRANSFERS? Rolling L/R: min A Supine-sit: ?min A? Sit-supine: ? min A? Sit-stand: ? CGA? Stand-sit: ?? CGA? Bed-Chair:? CGA? Chair-bed: CGA Provided skilled cues and instruction on performance and technique throughout. Gait Training 47560: Direct one-on-one instruction and skilled instruction in: Employing an assistive device Modified weight-bearing status Movement sequencing Turning and movement with proper form Provided verbal cues for equipment management and technique Provided instruction in gait pattern Patient education regarding pacing and breathing techniques to maximize activity tolerance? GAIT? Assistive Device: ?? ? FWW? Weight bearing: FWB Assist: ? CGA? Distance:?? ?25', 30', 55' With follow for seated rest break in between distances ? Deviation: ? Slow oneida, short step length, low step height ? ASSESSMENT:?Pt SA02 goes down to 85% without 2L 02 support, multiple sit to stand from EOB standing for 1minute duration ~10x getting SAo2 reading, placing gown to provide privacy during walking, fitting gait belt, draining quiroga so it is not too heavy before walking, pt SOB requiring seated rest break to recover. pt very engaged and was showing good effort to go farther during session, pt expressed concern about going home and 02 usage, not being able to maintain gains achieved from PT if not sen o short term SNF. pt concerns brought to supervising PT's attention. PLAN: Continue with balance training, global strengthening and general conditioning for improved safety, mobility and activity tolerance until pt is re barron for DC. TREATMENT CODE/TIME: [id number], [id number] 45mins (3:50-4:35pm)
[2023-09-24] MEDS: Pravastatin 40 MG TAB PO (20:09)
[2023-09-24] MEDS: Amitriptyline 25 MG TAB 12.5 MG PO (20:09)
[2023-09-24 21:20] VITALS: BP 126/69; PULSE 90; RESP 16; TEMP 36.4; O2SAT 96
[2023-09-25] VITALS (10 sets, daily range): BP systolic 125–140; BP diastolic 64–81; PULSE 100–107; RESP 15–18; TEMP 36–36.7; O2SAT 83–98
[2023-09-25] MEDS: Levothyroxine 200 MCG TAB PO (06:04)
[2023-09-25] MEDS: Insulin NPH-Human 300 UNITS/3 ML PEN 20 UNIT SC ×2 (08:07→16:55)
[2023-09-25] MEDS: Insulin Aspart 300 UNITS/3 ML PEN SC ×6 (08:07→17:36)
[2023-09-25 08:22] LABS: Anion Gap 9.4 mmol/L (3-11); BUN 54 mg/dL (7-18); CO2 31.6 mmol/L (21.0-32.0); CREATININE 2.3 mg/dL (0.70-1.30); Calcium 9.9 mg/dL (8.5-10.1); Chloride 103 mmol/L (98-107); Estimated GFR 30.55 (mL/min/1.73m2); Glucose 184 mg/dL (74-106); Potassium 3.7 mmol/L (3.5-5.1); Sodium 144 mmol/L (136-145)
[2023-09-25] MEDS: Aspirin E.C. 81 MG TABEC PO (08:56)
[2023-09-25] MEDS: Gabapentin 100 MG CAP 200 MG PO ×3 (08:57→19:24)
[2023-09-25] MEDS: Metoprolol CR 50 MG TABCR PO (08:58)
[2023-09-25] MEDS: Enoxaparin 30 MG/0.3 ML SYR SC (08:59)
[2023-09-25] MEDS: Normal Saline Flush 10 ML SYR IVP ×2 (11:32→19:27)
[2023-09-25] MEDS: cefTRIAXone 2 GM/50 ML BAG IVPB (11:32)
[2023-09-25] MEDS: Normal Saline 500 ML 100 ML IV (11:34)
[2023-09-25] MEDS: Nystatin CREAM 30 GM TUBE TP ×2 (12:01→20:33)
[2023-09-25] MEDS: Ergocalciferol 50000 UNITS CAP PO (12:06)
--- NOTE | 2023-09-25 15:38 | PT.INNT ---
PT Notes Visit Reasons: Sepsis,UTI Patient has not been feeling well and reporting clamminess. DIAMANTE Lombardi also corroborated complaint. Patient and politely declined doing anything. PT to hold off tx for this afternoon. Will follow up tomorrow morning and resume services as appropriate.
--- NOTE | 2023-09-25 16:44 | CHAPLAIN ---
I had a brief visit with Beny. I explained my role and offered support. We had a short conversation, he wasn't interested in further conversation.
--- NOTE | 2023-09-25 17:12 | CMPROGNOTE_ITS ---
Date of service: 09/25/23 Time of Service: 17:12 Care Management Progress Note Progress Note Text Progress Note Text: S/O: Beny was sleeping when CM attempted to meet with him. Per report, Beny's kidney functioning is improving, although he is not yet medically cleared for discharge. Beny and his would prefer that he go to short term rehab, although they understand the barriers to that plan, including the potential that he will not have a payer source, due to using all of his SNF benefit recently, as well as PT recommending HH PT. CM sent referrals to the requested facilities for consideration. CM will continue to follow. A: Beny is a 67 year old male admitted to [facility] on 09/20/23 with sepsis. Discharge Potential Discharge Needs: PT Evaluation and PCP F/U Appt Anticipated Barriers to Discharge: Medical Status Patient/Family Education Needs: Review discharge instructions, discuss Ask Me Three Transportation: RCT RCT Transportation: Wheel chair van Plan: Anticipate Beny will be discharged home with a resumption of home health services for PT, OT, RN and MAGNETIC TESTING TECHNICIAN, when cleared by provider. If PT determines that Beny could benefit from SNF again, Beny would like referrals sent to [facility] and [facility] as a large part of the family lives in [place]. He will follow up with his PCP, surgeon and plan of care and transport with family. CM will follow and continue to assess for discharge needs. SDOH(Care Management) Screening Will the Patient Participate in the Screening?: Declined to provide
--- NOTE | 2023-09-25 19:06 | W.PM.PROGNOT ---
Date of Service Date of service: 09/25/23 Time of Service: 15:00 Assessment and Plan Assessment and plan (1) Sepsis: Status: Acute Assessment and plan: Continue ceftriaxone; per UCx gm neg rods - it is sensitive to ceftriaxone Qualifiers: Sepsis type: Escherichia coli Sepsis acute organ dysfunction status: with acute organ dysfunction Severe sepsis acute organ dysfunction type: acute renal failure Acute renal failure type: unspecified Severe sepsis shock status: without septic shock Qualified Code(s): A41.51 - Sepsis due to Escherichia coli [E. coli]; R65.20 - Severe sepsis without septic shock; N17.9 - Acute kidney failure, unspecified (2) MICHAEL (acute kidney injury): Status: Acute Assessment and plan: Cr 2.3 Monitor (3) Urinary tract infection: Status: Acute Assessment and plan: CT scan of abdomen and pelvis demonstrated bladder wall thickening but no evidence for stones or hydronephrosis however, left kidney is atrophic. renal US negative for stones or obstruction Qualifiers: Urinary tract infection type: acute cystitis Hematuria presence: without hematuria Qualified Code(s): N30.00 - Acute cystitis without hematuria (4) Chronic renal disease, stage 3, moderately decreased glomerular filtration rate between 30-59 mL/min/1.73 square meter: Status: Acute Assessment and plan: monitor U.O. and daily BMP. (5) Diabetes mellitus, type II, insulin dependent: Assessment and plan: Continue NPH along w/ sliding scale novolog coverage (6) Cardiomyopathy: Assessment and plan: No evidence of acute CHF. Qualifiers: Cardiomyopathy type: dilated Qualified Code(s): I42.0 - Dilated cardiomyopathy (7) Anemia: Assessment and plan: Hgb 10; no active bleeding Qualifiers: Anemia type: due to chronic kidney disease Chronic kidney disease stage: stage 3 (moderate) Chronic kidney disease stage 3 subtype: stage 3b (GFR 30-44) Qualified Code(s): N18.32 - Chronic kidney disease, stage 3b; D63.1 - Anemia in chronic kidney disease (8) Chronic wound: Status: Acute Assessment and plan: Continue wound care, keep clean. (9) Neuropathy: Status: Acute Assessment and plan: Continue TCA, gabapentin and SNRI Subjective Subjective Patient reports: no new complaints, tolerating a regular diet and afebrile; denies flatus, diarrhea or vomiting Exam Narrative Exam Narrative: Morbidly obese male who is alert and oriented, lying in bed, no acute distress Lungs: lungs clear Heart: regular Abdomen: reducible abdominal wall hernia, soft, nontender, normal bowel sounds legs: trace to 1+ edema Madison draining clear yellow urine Objective Last Vital Signs Temp 36.2 C L 09/25/23 15:25 Pulse 102 H 09/25/23 15:25 Resp 16 09/25/23 15:25 BP 131/70 09/25/23 15:25 Pulse Ox 96 09/25/23 15:25 Laboratory Results - last 24 hr 09/25/23 07:15 Sodium 144 D Potassium 3.7 Chloride 103 Carbon Dioxide 31.6 Anion Gap 9.4 BUN 54 H Creatinine 2.3 H D Est GFR (CKD-EPI 2020) 30.55 Glucose 184 H Calcium 9.9 Time Spent with Patient Time Spent with Patient: <25 minutes Time was spent: preparing to see the patient(eg.review tests), ordering medications,tests, procedures, referring, communicating with other health pediatric critical care nurse, indepentently interpreting results, counseling the patient and care coordination
[2023-09-25] MEDS: Pravastatin 40 MG TAB PO (19:23)
[2023-09-25] MEDS: Acetaminophen 325 MG TAB PO (19:24)
[2023-09-25] MEDS: Amitriptyline 25 MG TAB 12.5 MG PO (19:24)
[2023-09-25] MEDS: traMADol 50 MG TAB PO (19:26)
[2023-09-26] MEDS: Levothyroxine 200 MCG TAB PO (06:15)
[2023-09-26 07:10] LABS: Abs Immature Grans 0.13 10^3/uL (0.0-0.06); Absolute Basophil Count 0.09 10^3/uL (0.0-0.2); Absolute Eosinophil Count 0.32 10^3/uL (0.0-0.7); Absolute Lymphocyte Count 1.54 10^3/uL (1.2-3.4); Absolute Monocyte Count 0.61 10^3/uL (0.1-0.8); Absolute Neutrophil Count 5.45 10^3/uL (1.2-6.7); Basophils % 1.1 %; Eosinophils % 3.9 %; HCT 35.3 % (40.0-50.0); HGB 11.1 g/dL (13.5-17.5); Immature Grans % 1.6 %; Lymphocytes % 18.9 %; MCH 28.5 pg (27.0-33.0); MCHC 31.4 % (32.0-36.0); MCV 91 fL (80-95); MPV 8.8 fL (8.0-11.0); Monocytes % 7.5 %; Platelet Count 259 10^3/uL (130-400); RDW 17.2 % (11.8-14.1); RDW-SD 54.3 fL; WBC 8.14 10^3/uL (4.4-10.8)
[2023-09-26 07:25] LABS: Anion Gap 7.5 mmol/L (3-11); BUN 37 mg/dL (7-18); CO2 32.5 mmol/L (21.0-32.0); CREATININE 1.7 mg/dL (0.70-1.30); Calcium 9.6 mg/dL (8.5-10.1); Chloride 105 mmol/L (98-107); Estimated GFR 43.91 (mL/min/1.73m2); Glucose 183 mg/dL (74-106); Magnesium 1.8 mg/dL (1.8-2.4); Potassium 3.9 mmol/L (3.5-5.1); Sodium 145 mmol/L (136-145)
[2023-09-26] MEDS: Enoxaparin 30 MG/0.3 ML SYR SC (07:51)
[2023-09-26] MEDS: Normal Saline Flush 10 ML SYR IVP ×2 (07:51→16:53)
[2023-09-26] MEDS: Insulin NPH-Human 300 UNITS/3 ML PEN 20 UNIT SC ×2 (07:52→16:50)
[2023-09-26] MEDS: Insulin Aspart 300 UNITS/3 ML PEN SC ×6 (07:57→17:43)
[2023-09-26] MEDS: Aspirin E.C. 81 MG TABEC PO (07:59)
[2023-09-26] MEDS: Acetaminophen 325 MG TAB PO ×2 (07:59→20:17)
[2023-09-26] MEDS: Gabapentin 100 MG CAP 200 MG PO ×3 (08:00→19:54)
[2023-09-26] MEDS: Metoprolol CR 50 MG TABCR PO (08:00)
[2023-09-26] MEDS: Nystatin CREAM 30 GM TUBE TP ×2 (08:26→19:54)
[2023-09-26 09:03] VITALS: BP 145/80; PULSE 98; RESP 15; TEMP 35.4; O2SAT 95
--- NOTE | 2023-09-26 10:24 | PT.INTREAT ---
PT Notes Visit Reasons: Sepsis,UTI Inpatient Physical Therapy Treatment Note [facility] Date: 09/26/23 PRECAUTIONS:Standard SUBJECTIVE: Pt reorts feeling better today than yesterday. OBJECTIVE: Therapeutic Activities ([id number][]): Direct one-on-one instruction in dynamic activities to improve functional performance. ? BED MOBILITY/TRANSFERS? Supine-sit: Min assistx1 with R LE ? Sit-stand: SBAx1 ? Stand-sit: SBAx1 ? Provided skilled cues and instruction on performance and technique throughout. Gait Training (66646m[]): Direct one-on-one instruction and skilled instruction in: ? Therapeutic Exercises (75613i[2]): Direct one-on-one instruction in therapeutic exercises to develop strength, endurance, range of motion and flexibility. ? Exercises ? Seated Rowing x 10 Seated Shoulder flexion x 10 Seated Horz abd x 10 Seated shoulder circles x 10 Mini Heel slides x 5 Q.S. x 10 Ambulation ? Assistive Device: FWW? Weight bearing: Full Assist: SBA ? Distance:? 5 steps to chair ? ASSESSMENT:? Pt was fatigued fairly quickly. 2L oxygen wit transfer and ambulation and 1.5L oxyegen with seated exercises. Oxygen 94%-97%. PLAN: Cont as per PT POC. TREATMENT CODE/TIME: 9:55-10:25 (30) TEx2
[2023-09-26] MEDS: cefTRIAXone 2 GM/50 ML BAG IVPB (10:29)
[2023-09-26 15:32] VITALS: BP 148/89; PULSE 97; RESP 15; TEMP 35.5; O2SAT 97
--- NOTE | 2023-09-26 16:21 | W.PM.PROGNOT ---
Date of Service Date of service: 09/26/23 Time of Service: 16:21 Assessment and Plan Assessment and plan (1) Sepsis: Status: Acute Assessment and plan: repeat urine culture is no growth. will check repeat CBC, CRP and procalcitonin tomorrow before stopping antibiotics but probably can change to oral antibiotics if he still needs coverage. Qualifiers: Sepsis type: Escherichia coli Sepsis acute organ dysfunction status: with acute organ dysfunction Severe sepsis acute organ dysfunction type: acute renal failure Acute renal failure type: unspecified Severe sepsis shock status: without septic shock Qualified Code(s): A41.51 - Sepsis due to Escherichia coli [E. coli]; R65.20 - Severe sepsis without septic shock; N17.9 - Acute kidney failure, unspecified (2) MICHAEL (acute kidney injury): Status: Acute Assessment and plan: Cr 1.8, he has now recovered to his baseline level. will resume diuretics, include lasix 40 mg IVP today and spironolactone 25 mg daily. his losartan has already been restarted. (3) Urinary tract infection: Status: Acute Assessment and plan: CT scan of abdomen and pelvis demonstrated bladder wall thickening but no evidence for stones or hydronephrosis however, left kidney is atrophic. renal US negative for stones or obstruction Qualifiers: Urinary tract infection type: acute cystitis Hematuria presence: without hematuria Qualified Code(s): N30.00 - Acute cystitis without hematuria (4) Chronic renal disease, stage 3, moderately decreased glomerular filtration rate between 30-59 mL/min/1.73 square meter: Status: Acute Assessment and plan: monitor U.O. and daily BMP. (5) Diabetes mellitus, type II, insulin dependent: Assessment and plan: Continue NPH along w/ sliding scale novolog coverage (6) Cardiomyopathy: Assessment and plan: now showing signs of volume overload, i.e. rales, leg edema and rising wt gain, resume lasix and spironolactone, monitor daily wts, repeat BNP and BMP and MG; no longer candidate for Jardiance d/t his recent UTI and prior Lan's gangrene. Qualifiers: Cardiomyopathy type: dilated Qualified Code(s): I42.0 - Dilated cardiomyopathy (7) Anemia: Assessment and plan: Hgb 10; no active bleeding Qualifiers: Anemia type: due to chronic kidney disease Chronic kidney disease stage: stage 3 (moderate) Chronic kidney disease stage 3 subtype: stage 3b (GFR 30-44) Qualified Code(s): N18.32 - Chronic kidney disease, stage 3b; D63.1 - Anemia in chronic kidney disease (8) Chronic wound: Status: Acute Assessment and plan: Continue wound care, keep clean. (9) Neuropathy: Status: Acute Assessment and plan: Continue TCA, gabapentin and SNRI Subjective Subjective Interval history since last seen: Beny says that he is not having as good of a day. He says that he can not explain exactly what is wrong. He says that he will be sitting in his chair and will suddenly nod off and awaken startled. He does feel a little dyspneic. he remains on oxygen at 2 lpm whereas he was down to 1 lpm couple days ago. I noted that his legs are getting more edematous and his wt has gone up 9 kg this admission. I told him that his renal function has recovered. Creatinine is down to 1.7 from peak of 5.2, BUN now 37 down from 76. I think that he now needs a little diuretics. I will give him one time dose of iv lasix this afternoon and put him back on his spironolactone. Exam Narrative Exam Narrative: Beny is sitting up in his chair, alert, oriented, appropriate questions and answers, no acute respiratory distress, not using accessory muscles and he is able to talk in complete paragraphs w/out dyspnea He is on oxygen at 2 lpm LUngs: bibasilar rales Heart: regular but slightly tachycardic Abdomen: obese, soft, nontender Legs: 3+ pitting edema bilaterally w/ some erythema over left pretibial area Objective Last Vital Signs Temp 35.5 C L 09/26/23 15:32 Pulse 97 H 09/26/23 15:32 Resp 15 09/26/23 15:32 BP 148/89 H 09/26/23 15:32 Pulse Ox 97 09/26/23 15:32 Laboratory Results - last 24 hr 09/26/23 06:45 WBC 8.14 RBC 3.90 L Hgb 11.1 L Hct 35.3 L MCV 91 D MCH 28.5 MCHC 31.4 L RDW 17.2 H Plt Count 259 MPV 8.8 Immature Gran % 1.6 Neutrophils % 67.0 Lymphocytes % 18.9 Monocytes % 7.5 Eosinophils % 3.9 Basophils % 1.1 Nucleated RBC % 0.0 Absolute Neutrophils 5.45 Absolute Lymphocytes 1.54 Absolute Monocytes 0.61 Absolute Eosinophils 0.32 Absolute Basophils 0.09 Sodium 145 Potassium 3.9 Chloride 105 Carbon Dioxide 32.5 H Anion Gap 7.5 BUN 37 H Creatinine 1.7 H Est GFR (CKD-EPI 2020) 43.91 Glucose 183 H Calcium 9.6 Magnesium 1.8 Time Spent with Patient Time Spent with Patient: 35-49 minutes Time was spent: preparing to see the patient(eg.review tests), ordering medications,tests, procedures, referring, communicating with other health resident care technician, indepentently interpreting results, counseling the patient and care coordination
[2023-09-26] MEDS: Furosemide 40 MG/4 ML VIAL IVP (16:52)
[2023-09-26] MEDS: Spironolactone 25 MG TAB PO (16:53)
[2023-09-26 19:20] VITALS: BP 146/78; PULSE 100; RESP 16; TEMP 35.5; O2SAT 97
[2023-09-26] MEDS: Pravastatin 40 MG TAB PO (19:54)
[2023-09-26] MEDS: traMADol 50 MG TAB PO (19:55)
[2023-09-26] MEDS: Amitriptyline 25 MG TAB 12.5 MG PO (19:55)
[2023-09-26 20:51] VITALS: O2SAT 97
--- NOTE | 2023-09-26 22:40 | RESPIRATORY ---
RT was paged to assess pt's breathings due to SOB. Pt. complained of a strange pattern of breathing that's bothering him to sleep comfortably today and yesterday as well. BBS fine crackles, clear, and diminished and saturating 97% on home regimen O2 3L/min, pt. well oriented, following commands, talking in full sentences without respiratory distress at that moment. Pt. accepted to bronchodilator treatment and given Istat. Pt. stated that helped slightly post treatment. RN informed for diuretic agent since pt. has had Hx. of congested hearth failure and consider chest x-ray if things goes for descending. RN notified to call or page RT if needed.
[2023-09-26] MEDS: Albuterol 2.5 MG/3 ML INH SOLN VIAL (22:57)
[2023-09-26 23:03] VITALS: PULSE 93; RESP 16; RESP 2; RESP 3; RESP 7; RESP 9; O2SAT 94
[2023-09-26 23:13] VITALS: BP 113/60; PULSE 98; RESP 16; TEMP 35.5; O2SAT 97
[2023-09-27] VITALS (9 sets, daily range): BP systolic 107–132; BP diastolic 58–73; PULSE 64–104; RESP 18–20; TEMP 35.4–36.4; O2SAT 84–98
[2023-09-27] MEDS: Levothyroxine 200 MCG TAB PO (06:10)
[2023-09-27 06:47] LABS: Abs Immature Grans 0.13 10^3/uL (0.0-0.06); Absolute Basophil Count 0.07 10^3/uL (0.0-0.2); Absolute Eosinophil Count 0.37 10^3/uL (0.0-0.7); Absolute Lymphocyte Count 1.63 10^3/uL (1.2-3.4); Absolute Monocyte Count 0.55 10^3/uL (0.1-0.8); Absolute Neutrophil Count 5.06 10^3/uL (1.2-6.7); Basophils % 0.9 %; Eosinophils % 4.7 %; HCT 33.1 % (40.0-50.0); HGB 9.9 g/dL (13.5-17.5); Immature Grans % 1.7 %; Lymphocytes % 20.9 %; MCH 27.7 pg (27.0-33.0); MCHC 29.9 % (32.0-36.0); MCV 93 fL (80-95); MPV 8.6 fL (8.0-11.0); Neutrophils % 64.8 %; Nucleated RBC 0.3 % (0.0-0.3); Platelet Count 233 10^3/uL (130-400); RBC 3.58 10^6/uL (4.36-5.78); RDW 17.2 % (11.8-14.1); RDW-SD 56.8 fL; WBC 7.81 10^3/uL (4.4-10.8)
[2023-09-27 07:09] LABS: Anion Gap 3.8 mmol/L (3-11); BUN 29 mg/dL (7-18); C-Reactive Protein 2.18 mg/dL (<or=0.5); CO2 36.2 mmol/L (21.0-32.0); CREATININE 1.6 mg/dL (0.70-1.30); Calcium 9.4 mg/dL (8.5-10.1); Chloride 104 mmol/L (98-107); Estimated GFR 47.23 (mL/min/1.73m2); Glucose 195 mg/dL (74-106); NT-proBNP 18256 pg/mL (<300); Potassium 3.6 mmol/L (3.5-5.1); Sodium 144 mmol/L (136-145)
[2023-09-27 07:25] LABS: Procalcitonin 0.2 ng/mL
[2023-09-27] MEDS: Insulin Aspart 300 UNITS/3 ML PEN SC ×6 (08:12→17:04)
[2023-09-27] MEDS: Insulin NPH-Human 300 UNITS/3 ML PEN 20 UNIT SC ×2 (08:15→17:03)
[2023-09-27] MEDS: Enoxaparin 30 MG/0.3 ML SYR SC (08:16)
[2023-09-27] MEDS: Spironolactone 25 MG TAB PO (08:17)
[2023-09-27] MEDS: Aspirin E.C. 81 MG TABEC PO (08:17)
[2023-09-27] MEDS: Metoprolol CR 50 MG TABCR 75 MG PO (08:17)
[2023-09-27] MEDS: Gabapentin 100 MG CAP 200 MG PO ×3 (08:17→20:44)
[2023-09-27] MEDS: Nystatin CREAM 30 GM TUBE TP ×2 (08:18→21:50)
--- NOTE | 2023-09-27 09:45 | PT.INTREAT ---
PT Notes Visit Reasons: Sepsis,UTI Inpatient Physical Therapy Treatment Note [facility] Date: 09/27/23 PRECAUTIONS:Standard OBJECTIVE: VITALS: ?When standing and marching in place HR 120 and oxygen started at 88% but quickly increased to 94% with going from 2L to 2.5L oxygen. Pt completed the remaining exercises at 2.5L oxygen and stayed int he low 90's. Therapeutic Activities (12217p[]): Direct one-on-one instruction in dynamic activities to improve functional performance. ? BED MOBILITY/TRANSFERS? Sit-stand: SBA? Stand-sit: SBA? Provided skilled cues and instruction on performance and technique throughout. Gait Training (64738e[]): Direct one-on-one instruction and skilled instruction in: ? Therapeutic Exercises ([id number][]): Direct one-on-one instruction in therapeutic exercises to develop strength, endurance, range of motion and flexibility. ? Exercises ? Seated Rowing x 15 Seated Shoulder flexion x 15 Seated Horz abd x 15 Seated shoulder circles x 15 LAQ x 15 Seated marching x 15 Ambulation ? Assistive Device: FWW? Weight bearing: Full Assist: SBA? Distance:?Standing and marching in place for 1 min? ASSESSMENT:? Pt was fatigued post session. Pt did require cues for pursed lip breathing techniques. PLAN: Cont as per PT POC. TREATMENT CODE/TIME: 9:20-9:45 (25) TEx2
[2023-09-27] MEDS: cefTRIAXone 2 GM/50 ML BAG IVPB (10:30)
--- NOTE | 2023-09-27 14:42 | PGE_ITS ---
Date of Service Date of service: 09/27/23 Time of Service: 14:42 Assessment and Plan Assessment and plan (1) MICHAEL (acute kidney injury): Status: Acute Assessment and plan: continues to improve. BUN down to 29 and creatinine 1.6. I have resumed his diuretics and given that he is hypervolemic, I have put him on scheduled iv lasix 40 mg IV q8h x 3 doses. probably tomorrow he can go on oral diuretics. I have adjusted his spironolactone. He is no longer a candidate for SGLT-1 inhibitors d/t his recurrent UTI and perineal/groin infection Lan's. continue to monitor BMP daily while diuresing. (2) Urinary tract infection: Status: Resolved Assessment and plan: repeat urine cultures from 09/21 No growth. I have stopped his ceftriaxone. Qualifiers: Urinary tract infection type: acute cystitis Hematuria presence: without hematuria Qualified Code(s): N30.00 - Acute cystitis without hematuria (3) Sepsis: Status: Resolved Qualifiers: Sepsis type: Escherichia coli Sepsis acute organ dysfunction status: with acute organ dysfunction Severe sepsis acute organ dysfunction type: acute renal failure Acute renal failure type: unspecified Severe sepsis shock status: without septic shock Qualified Code(s): A41.51 - Sepsis due to Escherichia coli [E. coli]; R65.20 - Severe sepsis without septic shock; N17.9 - Acute kidney failure, unspecified (4) Chronic renal disease, stage 3, moderately decreased glomerular filtration rate between 30-59 mL/min/1.73 square meter: Status: Chronic Assessment and plan: renal function has improved since resolution of his sepsis. IV fluids were stopped earlier in the week but despite this he has gained wt and shows periperhal edema. currently getting iv lasix as noted above for HFREF and hypervolemia. 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 continue lasix, spironolactone he is now back on his losartan and Toprol XL (with slight increase in the dose). Qualifiers: Cardiomyopathy type: dilated Qualified Code(s): I42.0 - Dilated cardiomyopathy (7) Anemia: Assessment and plan: chronic anemia although his baseline earlier this year was Hb 11 to 12 gm, during this admission he has been around 10 gm. I did not see any recent studies for iron or B12 or folate or checking stool for OB. While his anemia may from CKD, the degree of anemia given his renal recovery seems disproportionate. I will check stool for occult blood, and get anemia labs. Some of his anemia undoubtedly is d/t phlebotomy from his hospital stay. Qualifiers: Anemia type: due to chronic kidney disease Chronic kidney disease stage: stage 3 (moderate) Chronic kidney disease stage 3 subtype: stage 3b (GFR 30-44) Qualified Code(s): N18.32 - Chronic kidney disease, stage 3b; D63.1 - Anemia in chronic kidney disease (8) Chronic wound: Status: Acute Assessment and plan: Continue wound care, keep clean. (9) Neuropathy: Status: Acute Assessment and plan: Continue TCA, gabapentin and SNRI Subjective Subjective Interval history since last seen: Beny feels better today. He says that his dyspnea is better. However, he is still requiring oxygen at rest while awake (he usually uses oxygen at night). appetite is good, no CP or abdominal pain. Exam Narrative Exam Narrative: Obese white male, sitting up in bed, no acute distress, not dyspneic w/ conversation Lungs: clear anteriorly, some basilar rales still present heart: RRR Abdomen; obese, soft, nontender Madison draining clear yellow urine Legs: 3+ pitting bilateral edema, although they are softer than yesterday, still w/ some residual erythema over left pretibial surface Objective Last Vital Signs Temp 36.1 C L 09/27/23 12:05 Pulse 98 H 09/27/23 12:05 Resp 18 09/27/23 12:05 BP 126/70 09/27/23 12:05 Pulse Ox 95 09/27/23 12:05 Laboratory Results - last 24 hr 09/27/23 06:25 WBC 7.81 RBC 3.58 L Hgb 9.9 L Hct 33.1 L MCV 93 MCH 27.7 MCHC 29.9 L RDW 17.2 H Plt Count 233 MPV 8.6 Immature Gran % 1.7 Neutrophils % 64.8 Lymphocytes % 20.9 Monocytes % 7.0 Eosinophils % 4.7 Basophils % 0.9 Nucleated RBC % 0.3 Absolute Neutrophils 5.06 Absolute Lymphocytes 1.63 Absolute Monocytes 0.55 Absolute Eosinophils 0.37 Absolute Basophils 0.07 Sodium 144 Potassium 3.6 Chloride 104 Carbon Dioxide 36.2 H Anion Gap 3.8 BUN 29 H Creatinine 1.6 H Est GFR (CKD-EPI 2020) 47.23 Glucose 195 H Calcium 9.4 C-Reactive Protein 2.18 H NT-Pro-B Natriuret Pep 45554 H Procalcitonin 0.2 Time Spent with Patient Time Spent with Patient: 35-49 minutes Time was spent: preparing to see the patient(eg.review tests), ordering medications,tests, procedures, referring, communicating with other health senior care provider, indepentently interpreting results, counseling the patient and care coordination
[2023-09-27] MEDS: Furosemide 40 MG/4 ML VIAL IVP ×2 (15:40→23:35)
[2023-09-27] MEDS: Normal Saline Flush 10 ML SYR IVP (15:40)
[2023-09-27] MEDS: Pravastatin 40 MG TAB PO (20:43)
[2023-09-27] MEDS: Amitriptyline 25 MG TAB 12.5 MG PO (20:44)
[2023-09-27] MEDS: Enoxaparin 40 MG/0.4 ML SYR SC (20:44)
[2023-09-27] MEDS: traMADol 50 MG TAB PO (22:02)
[2023-09-27] MEDS: Melatonin 3 MG TAB 9 MG PO (22:02)
[2023-09-28 03:48] VITALS: BP 126/63; PULSE 94; RESP 18; TEMP 35.6; O2SAT 94
[2023-09-28] MEDS: Levothyroxine 200 MCG TAB PO (06:26)
[2023-09-28 06:43] LABS: Abs Immature Grans 0.15 10^3/uL (0.0-0.06); Absolute Basophil Count 0.07 10^3/uL (0.0-0.2); Absolute Eosinophil Count 0.51 10^3/uL (0.0-0.7); Absolute Lymphocyte Count 1.78 10^3/uL (1.2-3.4); Absolute Neutrophil Count 4.48 10^3/uL (1.2-6.7); Basophils % 0.9 %; Eosinophils % 6.7 %; HCT 34.8 % (40.0-50.0); HGB 10.3 g/dL (13.5-17.5); Lymphocytes % 23.5 %; MCH 27.6 pg (27.0-33.0); MCHC 29.6 % (32.0-36.0); MCV 93 fL (80-95); MPV 8.8 fL (8.0-11.0); Monocytes % 7.9 %; Platelet Count 227 10^3/uL (130-400); RBC 3.73 10^6/uL (4.36-5.78); RDW 17.2 % (11.8-14.1); Reticulocyte 4.5 % (0.5-2.4); WBC 7.59 10^3/uL (4.4-10.8)
[2023-09-28 07:00] LABS: BUN 26 mg/dL (7-18); CREATININE 1.7 mg/dL (0.70-1.30); Calcium 9.2 mg/dL (8.5-10.1); Chloride 102 mmol/L (98-107); Estimated GFR 43.91 (mL/min/1.73m2); Glucose 186 mg/dL (74-106); LDH 141 U/L (85-227); Magnesium 1.5 mg/dL (1.8-2.4); Potassium 3.5 mmol/L (3.5-5.1); Sodium 145 mmol/L (136-145)
[2023-09-28 07:01] LABS: Iron 46 ug/dL (65-175); Total Iron Binding Capacity 264 ug/dL (250-450); Transferrin Sat 17 % (20-55)
[2023-09-28 07:26] LABS: Folate 10.1 ng/mL (8.6-20.0); Vitamin B12 465 pg/mL (193-986)
[2023-09-28 07:47] VITALS: BP 122/61; PULSE 88; RESP 16; TEMP 35.8; O2SAT 97
[2023-09-28] MEDS: Nystatin CREAM 30 GM TUBE TP (08:04)
[2023-09-28] MEDS: Normal Saline Flush 10 ML SYR IVP (08:04)
[2023-09-28] MEDS: Furosemide 40 MG/4 ML VIAL IVP (08:04)
[2023-09-28] MEDS: Aspirin E.C. 81 MG TABEC PO (08:24)
[2023-09-28] MEDS: Gabapentin 100 MG CAP 200 MG PO ×2 (08:25→14:29)
[2023-09-28] MEDS: Metoprolol CR 50 MG TABCR 75 MG PO (08:26)
[2023-09-28] MEDS: Enoxaparin 40 MG/0.4 ML SYR SC (08:27)
[2023-09-28] MEDS: Insulin NPH-Human 300 UNITS/3 ML PEN 20 UNIT SC (08:28)
[2023-09-28] MEDS: Insulin Aspart 300 UNITS/3 ML PEN SC ×4 (08:32→11:59)
--- NOTE | 2023-09-28 09:36 | PDOC.CMPRO ---
Date of service: 09/28/23 Time of Service: 09:36 Care Management Progress Note Progress Note Text Progress Note Text: S/O: A: Beny is a 67 year old male admitted to [facility] on 09/20/23 with sepsis. Discharge Potential Discharge Needs: PT Evaluation (HH vs SNF) Anticipated Barriers to Discharge: Bed availability Patient/Family Education Needs: Review discharge instructions, discuss Ask Me Three Transportation: RCT RCT Transportation: Wheel chair van Plan: Anticipate Beny will be discharged home with a resumption of home health services for PT, OT, RN and TEACHER OF THE HANDICAPPED, when cleared by provider. If PT determines that Beny could benefit from SNF again, Beny would like referrals sent to [facility] and [facility] as a large part of the family lives in [place]. He will follow up with his PCP, surgeon and plan of care and transport with family. CM will follow and continue to assess for discharge needs. SDOH(Care Management) Screening Will the Patient Participate in the Screening?: Declined to provide
[2023-09-28] MEDS: Ergocalciferol 50000 UNITS CAP PO (10:38)
--- NOTE | 2023-09-28 10:50 | PT.INTREAT ---
PT Notes Visit Reasons: Sepsis,UTI Physical Therapy Inpatient Treatment Note Date: 09/28/2023 Precautions: Fall. Standard. Activity as tolerated. Subjective: brought in orthopedic shoes from home that made today's walk more comfortable. Happy about how he navigated the hallway with no physical assistance from PT . Agreeable to getting out of bed and walking using walker. Did not report any lightheadedness throughout session. Minimal shortness of breath that resolved with rest. In the afternoon, patient got anxious about getting in and out of their old Jeep SUV and finally requested that he be transported via wheelchair vacn as she will be unable to help with bringing his legs into the car safely. Objective: General Observation: IV through both UE. Madison catheter in place. Telemetry monitoring in place. Mental Status: Alert and oriented as to person, place, time, and purpose. Able to pay attention, focus, and respond appropriately. Pain: None reported Vital Signs: Closely monitored by nursing staff Bed Mobility/Transfers: Minimal cueing provided for use of B hands as needed for support, movement sequence, AD management, and posture to reduce fall risk and minimize pain report Sit to stand supervision with FWW Stand to sit supervision with FWW Bed to reclining chair supervision with FWW Car transfers assist of 2 but was unsuccessful due to patient size and limited car space Gait: 75 feet + 75 feet using FWW. Step-to gait pattern,, gait wide-based. Minimal cues given for activity pacing walker management. Minimal shortness of breath quickly resolved with rest. No LOB. Balance: Static Sitting: Normal Dynamic Sitting: Good Static Standing: Fair Dynamic Standing: Fair ASSESSMENT: Patient now able to negotiate a longer distance here than he would do at home without undue shortness of breath, fatigue, and pain report. For the afternoon session, assistance was given for safe car transfer onto patient's Old Jeep SUV which does not have enough space for patient's body size. Car door space, seat depth, and width were not adequate for patient. Patient was not able to safely bend B knees and became short of breath which brought his anxiety level up. too is not able to assist with lifting patient's leg up onto car and is agreeable to getting a wheelchair van instead. Recommended transport via vehicle with bariatric wheelchair accommodations to out of school hours care worker at this point. Plan of Care/Treatment Plan: PT to discharge home today with PT services referral. DISCHARGE RECOMMENDATIONS: [] Home with no services [] [X] Home with services. Patient will benefit from home health PT services in order to progress mobility level using least restrictive assistive ambulatory device, assess home safety, identify additional equipment needs, and establish a functional maintenance program that will increase ability of patient to remain at home. [] Home with outpatient PT [] [] SNF for continued rehabilitation [] [] [facility] [] [] SNF versus LTC based on ability to participate and progress [] TREATMENT CODE/TIME: Session 1--81180 x 40 for 3 units ((10:50-11:35). Session 2--52565 x 25 minutes for 2 units (15:02-15:27).
[2023-09-28 11:23] VITALS: BP 119/74; PULSE 89; RESP 20; TEMP 35.9; O2SAT 98
--- NOTE | 2023-09-28 12:08 | DSE_ITS ---
Date of service: 09/28/23 Time of Service: 16:08 DS: Diagnosis Discharge Diagnosis (1) Urinary tract infection: Status: Resolved Asessment and Plan: Patient initially presented with signs and symptoms consistent with sepsis secondary to urinary tract infection for which she was treated with ceftriaxone. However, he also had an acute kidney injury with creatinine increasing to as high as 5.2 but improved with holding diuretics. However, patient did become fluid overloaded and low-dose diuretic was restarted with patient remaining at baseline kidney function and appropriately diuresing. Ultimately, patient was evaluated by physical therapy and was determined to be stable for discharge with home health and PT services. (2) MICHAEL (acute kidney injury): Status: Acute Asessment and Plan: as noted above (3) Sepsis: Status: Resolved Asessment and Plan: as noted above (4) Chronic renal disease, stage 3, moderately decreased glomerular filtration rate between 30-59 mL/min/1.73 square meter: Status: Chronic Asessment and Plan: -as noted above (5) Diabetes mellitus, type II, insulin dependent: Asessment and Plan: -continue home insulin regimen (6) Cardiomyopathy: (7) Anemia: (8) Chronic wound: Status: Acute (9) Neuropathy: Status: Acute Discharge Plan Disposition Patient Disposition: Home W/Home Health Services Condition: Good Discharge Details Reason For Visit: Sepsis,UTI Admit Date/Time: 09/20/23 07:54 Admit Provider: Flavio Cobb Attending Provider: Flavio Cobb Primary Care Provider: Goldie Gutierrez V Hospital Course Hospital Course: Patient initially presented with signs and symptoms consistent with sepsis secondary to urinary tract infection for which she was treated with ceftriaxone. However, he also had an acute kidney injury with creatinine increasing to as high as 5.2 but improved with holding diuretics. However, patient did become fluid overloaded and low-dose diuretic was reinitiated with patient remaining at baseline kidney function and appropriately diuresing. Ultimately, patient was evaluated by physical therapy and was determined to be stable for discharge with home health and PT services. Home Meds and New Rx's Prescriptions: New metoprolol succinate 50 mg Tablet Extended Release 24 Hr 75 mg PO DAILY Qty: 90 0RF Continued metoprolol succinate 100 mg tablet extended release 24 hr 100 mg PO DAILY Qty: 90 3RF tramadol 50 mg tablet 50 mg PO BID PRN losartan 50 mg tablet 50 mg PO DAILY Qty: 90 3RF fluconazole 100 mg tablet 150 mg PO DAILY PRN docusate sodium [Colace] 100 mg capsule 100 mg PO BID PRN Trulicity 3 mg/0.5 mL pen injector 3 mg subcut QWEEK duloxetine 30 mg capsule,delayed release(DR/EC) 60 mg PO DAILY meclizine 25 mg tablet,chewable 12.5 mg PO TID PRN clobetasol-emollient 15 GM cream 15 gm Topical DAILY levothyroxine 200 MCG tablet 200 mcg PO DAILY acetaminophen [Tylenol] 325 mg tablet 650 mg PO BID aspirin [Aspir-81] 81 MG tablet,delayed release (DR/EC) 81 mg PO DAILY gabapentin 600 MG tablet 600 mg PO TID pravastatin 40 MG tablet 40 mg PO HS amitriptyline 25 MG tablet 25 mg PO HS diclofenac sodium [Voltaren] 1 % gel 2 gm Topical QID PRN ergocalciferol (vitamin D2) 1,250 mcg (50,000 unit) capsule 1,250 mcg PO .2x weekly furosemide 80 mg tablet 80 mg PO DAILY spironolactone 25 mg tablet 25 mg PO DAILY diphenhydramine HCl [Allergy (diphenhydramine)] 25 mg tablet 25 mg PO Q6H PRN insulin lispro [Humalog U-100 Insulin] 100 unit/mL solution 1 sliding scale dose subcut USEASDIRECTD vitamin A-vitamin C-vit E-min Capsule 1 cap PO DAILY hemp seed oil 1 cap PO/SL DAILY berberrine 1 cap PO/SL BID nystatin 100,000 unit/gram cream 1 applic topical BID Discontinued cephalexin 500 mg capsule PO DAILY No Action (DME) Dexcom G6 Sensor Device See Rx Instructions .ROUTE Rx Instructions: As directed Discharge Instructions Instructions: Acute Kidney Injury (DC), Urinary Tract Infection in Men (DC), Chronic Kidney Disease (DC), Dysuria (GEN), Urinary Tract Infection in Older Adults (DC) Stand Alone Forms: Nursing Discharge Form Referrals: Goldie Gutierrez MD [Primary Care Provider] - 10/12/23 7:30 am (With Emmie Pimentel) Activity:: Activity as Tolerated Equipment/Supplies:: No Equipment Needed Diet:: As Tolerated Discharge Orders Discharge Orders: Discharge Order (Routine); Ordered 09/28/23 Ordered By: James Godfrey DS: Summary Time Spent with Patient providing and/or coordinating discharge services: Greater than 30 minutes Status at Discharge Functional status at discharge: independent ambulation Overall status at discharge: patient is back to baseline Mental Status: mental status grossly normal Speech and Movement: speech and movement normal Mood: congruent mood Affect: normal affect Quality:SDOH Health Related Social Needs: No Data to Display Exam Narrative Exam Narrative: Obese gentleman lying in bed in no acute distress, ANO x 4, heart regular rhythm, lungs clear to auscultation bilaterally, abdomen obese, soft, nontender, legs with 2+ pitting edema (improvement from previous data Psych Mental Status: mental status grossly normal Speech and Movement: speech and movement normal Mood: congruent mood Affect: normal affect DS: Data Vitals/I&O Vitals and I&O: Vital Signs Temperature 96.6 F L 09/28/23 11:23 Temperature Source Temporal Artery Scan 09/28/23 11:23 Pulse 89 09/28/23 11:23 Pulse Rhythm Regular 09/28/23 08:44 Pulse 108 H 09/20/23 08:01 Respiratory Rate 20 09/28/23 11:23 Respiratory Effort Normal 09/28/23 08:44 Respiratory Depth Normal 09/28/23 08:44 Respiratory Pattern Normal 09/28/23 08:44 Blood Pressure 119/74 09/28/23 11:23 Blood Pressure Mean 62 09/20/23 08:01 Blood Pressure Position Supine 09/20/23 04:24 Pulse Oximetry 98 09/28/23 11:23 Oxygen Delivery Method Nasal Cannula 09/28/23 11:23 Oxygen Flow Rate 2 09/28/23 11:23 Pain Level 1 09/28/23 07:47 Comment Pt maintaining spo2 but continues to report mild sob at rest, increases with exertion. Dr. Metcalf notified. 09/27/23 06:20 Intake & Output 09/27/23 09/28/23 09/28/23 17:59 05:59 17:59 Intake Total 510 / 510 Output Total 1850 / 1850 1200 / 3050 1500 / 1500 Balance -1340 / -1340 -1200 / -2540 -1500 / -1500 Intake: IV 50 / 50 Oral 460 / 460 Output: Urine 1850 / 1850 1200 / 3050 1500 / 1500 Other: Urine Color Yellow Yellow Pale Yellow Urine Appearance Clear Clear Clear Stool Size Moderate Stool Characteristics Soft Brown Data Completed and Pending Labs on day of discharge: Labs from last 24 hours 09/28/23 06:20 WBC 7.59 RBC 3.73 L Hgb 10.3 L Hct 34.8 L MCV 93 MCH 27.6 MCHC 29.6 L RDW 17.2 H Plt Count 227 MPV 8.8 Reticulocyte % (Auto) 4.5 H Immature Gran % 2.0 Neutrophils % 59.0 Lymphocytes % 23.5 Monocytes % 7.9 Eosinophils % 6.7 Basophils % 0.9 Nucleated RBC % 0.0 Absolute Neutrophils 4.48 Absolute Lymphocytes 1.78 Absolute Monocytes 0.60 Absolute Eosinophils 0.51 Absolute Basophils 0.07 Sodium 145 Potassium 3.5 Chloride 102 Carbon Dioxide 39.0 H Anion Gap 4.0 BUN 26 H Creatinine 1.7 H Est GFR (CKD-EPI 2020) 43.91 Glucose 186 H Calcium 9.2 Magnesium 1.5 L Iron 46 L TIBC 264 Transferrin % Sat 17 L Lactate Dehydrogenase 141 Vitamin B12 465 Folate 10.1 PFSH All Active Problems (Updated 09/27/23 @ 15:36 by Wilmer Harris MD) MICHAEL (acute kidney injury) (Acute) Chronic renal disease, stage 3, moderately decreased glomerular filtration rate between 30-59 mL/min/1.73 square meter (Chronic) Kidney disease (Acute) Heart failure (Acute) Morbid obesity (Acute) Chronic wound (Acute) Hearing difficulty (Acute) Tinnitus (Acute) Neuropathy (Acute) Lower extremity edema (Acute) Medical History Wound infection Plaque psoriasis Thrush Dyspnea on exertion Headache Lateral epicondylitis Rotator cuff syndrome CHF (congestive heart failure) Edema Hip pain Hypoxia Arthralgia Vertigo Obesity Anemia Renal insufficiency Sore throat Vitamin D deficiency Cardiomyopathy Hypertension Tubular adenoma of colon Hypogonadism male Psoriasis Osteoarthritis Ventral incisional hernia Hypothyroidism Hyperlipidemia Depression Foot ulceration Erectile dysfunction B12 deficiency Chronic pain Morbid obesity Gout Chronic painful diabetic neuropathy Oral candidiasis Lumbar radiculopathy Diabetes mellitus, type II, insulin dependent COURTNEY (obstructive sleep apnea) Surgical History Colostomy reveresal Colonoscopy - MAC Colectomy Family History Mother Diabetes Essential hypertension AAA (abdominal aortic aneurysm) Kidney disease Heart problem COPD (chronic obstructive pulmonary disease) Father Pancreatic cancer Diabetes Angina pectoris Maternal Uncle Leukemia Maternal Grandmother Heart problem Other Brain aneurysm Social History Smoking/Tobacco Use Status: Former Tobacco Use Quit Date: 04/27/94 Pack-years: 24 Tobacco: How many years used: 16 Smoking risk assessment performed?: Yes Alcohol Intake: current Alcohol Intake frequency: holidays/special occasions only Drug use: Never Substance use type: does not use Housing: house Do you feel safe at home: Yes Do you feel safe in your relationship?: Yes Additional Social history: arrived soon after, supportive to pt's needs. Time Spent with Patient Time Spent with Patient: <45 minutes Time was spent: preparing to see the patient(eg.review tests), obtaining and/or reviewing separately otained hiistory, ordering medications,tests, procedures, referring, communicating with other health field care advocate, indepentently interpreting results, counseling the patient and care coordination
--- NOTE | 2023-09-28 12:17 | PDOC.HHF2F_ITS ---
Home Health Referral Home Health Orders Clinical synopsis of why skilled professionals are needed: Morbid obesity, CKD, UTI Registered Nurse: Check all that apply Instruct on new or changed medication(s)/assess compliance: Ordered Assess for exacerbation of medical condition, instruct patient/caregivers on signs and symptoms to report for early detection: Ordered Physical Therapist: Check all that apply Increase strength & endurance for safe mobility at home: Ordered To design/establish home maintenance program: Ordered Fall reduction therapy program for patient with history of frequent falls: Ordered Home safety evaluation and teaching/gait training including stair management (if applicable): Ordered Encounter Date and Reason: I certify that a FTF encounter for this patient was performed on September 28, 2023 and that such encounter was related to the primary reason the patient requires home health services. The encounter was conducted in the following manner: * By me as the certifying physician, CHEMICAL UNIT OPERATOR, PA or * By an inpatient physician, CHEMICAL UNIT OPERATOR or PA during an inpatient stay who communicated findings to me, Certification And Authentication I certify that I composed the above information based on my clinical judgment re lating to this patient's medical condition and, if applicable, clinical findings communicated to me by the NPP or inpatient physician who performed the FTF encounter. Name of Provider that will be monitoring home health services: Goldie Gutierrez
--- NOTE | 2023-09-28 14:11 | PDOC.CMDIS ---
Date of service: 09/28/23 Time of Service: 14:19 LACE Index Scoring Tool Questions: Length of Stay (in days): 7 - 13 Was the patient admitted via the E.D.?: Yes Comorbidities: Congestive Heart Failure and Liver or Renal Disease E.D. Visits: 1 Answers: Total Score: 14 Risk of Readmission: High Risk Care Management Discharge Plan Reason for Hospitalization: Sepsis, UTI Discharge Plan: Beny will return home today with new orders for HH RN and PT. He will transport home via RCT w/c van with a bariatric w/c, coordinated by CM. He will follow up with his PCP and discharge plan of care. He is happy to be going home. Patient/Family Education Needs: Review discharge instructions and limitations, discussion of self care needs including ask me three. Services Needed at Discharge: Home Health Care Services (new HH RN, PT) and Transportation (RCT w/c van) SDOH Health Related Social Needs: No Data to Display
== END 2023-09-28 16:08 | disposition home health service (06) | DRG 872 ==
LOC: ER 08:27 → MS 09:09
PROVIDERS: Internal Medicine; Nurse Practitioner Family; Admitting Provider Family Medicine; Emergency Provider Student in an Organized Health Care Education/Training Program; PCP Family Medicine; Visit Provider Family Medicine
DX: A41.51 Sepsis due to Escherichia coli [E. coli] (principal); I42.0 Dilated cardiomyopathy; Z68.43 Body mass index [BMI] 50.0-59.9, adult; N30.00 Acute cystitis without hematuria; I13.0 Hypertensive heart and chronic kidney disease with heart failure and stage 1 through stage 4 chronic kidney disease, or unspecified chronic kidney disease; I50.20 Unspecified systolic (congestive) heart failure; N17.9 Acute kidney failure, unspecified; E11.42 Type 2 diabetes mellitus with diabetic polyneuropathy; Z79.4 Long term (current) use of insulin; D63.1 Anemia in chronic kidney disease; E11.22 Type 2 diabetes mellitus with diabetic chronic kidney disease; G47.33 Obstructive sleep apnea (adult) (pediatric); N18.32 Chronic kidney disease, stage 3b; E66.01 Morbid (severe) obesity due to excess calories; R65.20 Severe sepsis without septic shock; Z79.899 Other long term (current) drug therapy; Z99.81 Dependence on supplemental oxygen; R53.1 Weakness; I44.7 Left bundle-branch block, unspecified; L40.0 Psoriasis vulgaris; E55.9 Vitamin D deficiency, unspecified; E03.9 Hypothyroidism, unspecified; E78.5 Hyperlipidemia, unspecified; F32.A Depression, unspecified; E53.8 Deficiency of other specified B group vitamins; M54.16 Radiculopathy, lumbar region; B96.20 Unspecified Escherichia coli [E. coli] as the cause of diseases classified elsewhere; S31.103D Unspecified open wound of abdominal wall, right lower quadrant without penetration into peritoneal cavity, subsequent encounter; X58.XXXD Exposure to other specified factors, subsequent encounter
CPT/HCPCS: 51702; 00123; 36415; 36416; 71275; 74177; 76770; 80048; 80053; 82805; 82962; 84145; 85652; 87040; 87077; 87635; 87641; 93005; 96365; 96366; 96367; 97110; 97116; 97162; 97530; 99222; 99285; C8929; J1650; 81003; 81015; 82270; 82607; 82746; 83540; 83550; 83605; 83615; 83735; 83880; 84484; 85025; 85045; 85610; 85730; 86140; 87086; 87186; 93010; 94640; 94667; 94668; 94760; 99223; 99231; 99232; 99233; 99238; J0696; J0737; J1815; J1940; J2020; J2543; J3490; J7613

== ENCOUNTER 2023-10-05 20:18 | Outpatient (REF) | payer MEDICARE, SELFPAY | END 2023-10-05 20:19 | disposition home or self-care (01) | LOC: LBN 20:18 | PROVIDERS: PCP Family Medicine; Visit Provider Family Medicine | DX: N39.0 Urinary tract infection, site not specified (principal); R82.89 Other abnormal findings on cytological and histological examination of urine | CPT/HCPCS: 87086 ==

== ENCOUNTER 2023-10-12 10:02 | Outpatient (REF) | payer MEDICARE, SELFPAY ==
[2023-10-12 15:33] LABS: HGB 11.3 g/dL (13.5-17.5); MCV 97 fL (80-95); MPV 10.2 fL (8.0-11.0); Platelet Count 185 10^3/uL (130-400); RBC 4.03 10^6/uL (4.36-5.78); RDW 18.1 % (11.8-14.1); RDW-SD 64.6 fL; WBC 6.73 10^3/uL (4.4-10.8)
[2023-10-12 15:52] LABS: Anion Gap 3.5 mmol/L (3-11); BUN 64 mg/dL (7-18); CO2 38.5 mmol/L (21.0-32.0); CREATININE 2.1 mg/dL (0.70-1.30); Calcium 9.8 mg/dL (8.5-10.1); Chloride 99 mmol/L (98-107); Estimated GFR 34.08 (mL/min/1.73m2); Glucose 308 mg/dL (74-106); Magnesium 1.8 mg/dL (1.8-2.4); NT-proBNP 4085 pg/mL (<300); Potassium 4.6 mmol/L (3.5-5.1); Sodium 141 mmol/L (136-145)
[2023-10-12 16:34] LABS: Hemoglobin A1C 6.5 % (<5.7)
== END 2023-10-12 10:03 | disposition home or self-care (01) ==
LOC: NCHCN 10:02
PROVIDERS: PCP Family Medicine; Visit Provider Physician Assistant Medical
DX: E11.9 Type 2 diabetes mellitus without complications (principal); I50.9 Heart failure, unspecified
CPT/HCPCS: 80048; 85027; 83036; 83735; 83880

== ENCOUNTER 2023-11-12 13:32 | Outpatient (REF) | payer MEDICARE, SELFPAY ==
[2023-11-12 17:20] LABS: HCT 39.7 % (40.0-50.0); HGB 11.9 g/dL (13.5-17.5)
[2023-11-12 17:31] LABS: Iron 111 ug/dL (65-175)
[2023-11-12 17:39] LABS: ALT 19 U/L (16-63); AST 16 U/L (15-37); Albumin 3.1 g/dL (3.4-5.0); Alkaline Phosphatase 90 U/L (46-116); Anion Gap 0.9 mmol/L (3-11); BUN 66 mg/dL (7-18); Bilirubin, Total 0.46 mg/dL (0.2-1.0); CO2 43.1 mmol/L (21.0-32.0); CREATININE 1.8 mg/dL (0.70-1.30); Calcium 9.6 mg/dL (8.5-10.1); Chloride 99 mmol/L (98-107); Glucose 118 mg/dL (74-106); NT-proBNP 2481 pg/mL (<300); Potassium 4.1 mmol/L (3.5-5.1); Sodium 143 mmol/L (136-145); Total Protein 7.3 g/dL (6.4-8.2)
[2023-11-12 18:07] LABS: Calculated LDL 78 mg/dL (<100); Cholesterol 148 mg/dL (<200); Ferritin 41 ng/mL (26-388); HDL Cholesterol 53 mg/dL (40-60); Triglyceride 87 mg/dL (<150)
[2023-11-16 11:48] LABS: Measles IgG Antibody Positive (See Note)
[2023-11-16 11:50] LABS: Mumps Antibody IgG Negative (See Note)
[2023-11-16 11:52] LABS: Rubella IgG Ab (UVM) Positive (See Note)
== END 2023-11-12 13:33 | disposition home or self-care (01) ==
LOC: NCHCN 13:32
PROVIDERS: PCP Family Medicine; Visit Provider Family Medicine
DX: I50.9 Heart failure, unspecified (principal); Z86.2 Personal history of diseases of the blood and blood-forming organs and certain disorders involving the immune mechanism; Z00.00 Encounter for general adult medical examination without abnormal findings; E11.9 Type 2 diabetes mellitus without complications; E78.5 Hyperlipidemia, unspecified
CPT/HCPCS: 80053; 80061; 82728; 83540; 83880; 85014; 85018; 86735; 86762; 86765

== ENCOUNTER 2024-01-22 14:10 | Outpatient (REF) | payer MEDICARE, SELFPAY ==
[2024-01-22 16:18] LABS: HCT 36.2 % (40.0-50.0); HGB 11.7 g/dL (13.5-17.5)
[2024-01-22 16:34] LABS: ALT 24 U/L (16-63); AST 20 U/L (15-37); Albumin 3.2 g/dL (3.4-5.0); Alkaline Phosphatase 96 U/L (46-116); Bilirubin, Total 0.54 mg/dL (0.2-1.0); Calcium 9.3 mg/dL (8.5-10.1); Chloride 100 mmol/L (98-107); Estimated GFR 35.91 (mL/min/1.73m2); Glucose 151 mg/dL (74-106); Potassium 4.4 mmol/L (3.5-5.1); Sodium 141 mmol/L (136-145); Total Protein 6.8 g/dL (6.4-8.2)
[2024-01-22 16:36] LABS: Hemoglobin A1C 6.7 % (<5.7)
[2024-01-22 17:19] LABS: BUN 95 mg/dL (7-18)
[2024-01-25 18:38] LABS: TSH (W/Ref FT4) 4.66 uIU/mL (0.36-3.74)
[2024-01-25 19:00] LABS: FREE T4 0.93 ng/dL (0.76-1.46)
== END 2024-01-22 14:11 | disposition home or self-care (01) ==
LOC: NCHCN 14:10
PROVIDERS: PCP Family Medicine; Visit Provider Family Medicine
DX: E11.9 Type 2 diabetes mellitus without complications (principal); I10 Essential (primary) hypertension; Z87.440 Personal history of urinary (tract) infections
CPT/HCPCS: 80053; 87077; 83036; 84439; 84443; 85014; 85018; 87086; 87186

== ENCOUNTER 2024-02-02 16:06 | Outpatient (REF) | payer MEDICARE, SELFPAY | END 2024-02-02 16:07 | disposition home or self-care (01) | LOC: NCHCN 16:06 | PROVIDERS: PCP Family Medicine; Visit Provider Family Medicine | DX: N39.0 Urinary tract infection, site not specified (principal); B96.29 Other Escherichia coli [E. coli] as the cause of diseases classified elsewhere | CPT/HCPCS: 87077; 87086; 87186 ==

== ENCOUNTER 2024-02-04 17:26 | Outpatient (REF) | payer MEDICARE, SELFPAY ==
[2024-02-04 17:24] LABS: Anion Gap 9.8 mmol/L (3-11); CO2 33.2 mmol/L (21.0-32.0); CREATININE 2.1 mg/dL (0.70-1.30); Calcium 9.4 mg/dL (8.5-10.1); Chloride 100 mmol/L (98-107); Estimated GFR 33.87 (mL/min/1.73m2); Glucose 243 mg/dL (74-106); Potassium 4.2 mmol/L (3.5-5.1); Sodium 143 mmol/L (136-145)
[2024-02-05 08:03] LABS: BUN 93 mg/dL (7-18)
== END 2024-02-04 17:27 | disposition home or self-care (01) ==
LOC: NCHCN 17:26
PROVIDERS: PCP Family Medicine; Visit Provider Family Medicine
DX: I10 Essential (primary) hypertension (principal)
CPT/HCPCS: 80048

== ENCOUNTER 2024-02-26 15:41 | Outpatient (REF) | payer MEDICARE, SELFPAY ==
[2024-02-26 18:30] LABS: CREATININE 1.9 mg/dL (0.70-1.30); Calcium 9.5 mg/dL (8.5-10.1); Chloride 98 mmol/L (98-107); Estimated GFR 38.19 (mL/min/1.73m2); Glucose 250 mg/dL (74-106); Potassium 4.6 mmol/L (3.5-5.1); Sodium 141 mmol/L (136-145)
[2024-02-26 18:37] LABS: BUN 91 mg/dL (7-18)
== END 2024-02-26 15:42 | disposition home or self-care (01) ==
LOC: NCHCN 15:41
PROVIDERS: PCP Family Medicine; Visit Provider Family Medicine
DX: I13.0 Hypertensive heart and chronic kidney disease with heart failure and stage 1 through stage 4 chronic kidney disease, or unspecified chronic kidney disease
CPT/HCPCS: 80048

== ENCOUNTER 2024-04-22 15:17 | Outpatient (REF) | payer MEDICARE, SELFPAY ==
[2024-04-22 19:24] LABS: HGB 13.2 g/dL (13.5-17.5)
[2024-04-22 19:27] LABS: Anion Gap 4.7 mmol/L (3-11); BUN 79 mg/dL (7-18); CO2 36.3 mmol/L (21.0-32.0); CREATININE 2.1 mg/dL (0.70-1.30); Calcium 9.8 mg/dL (8.5-10.1); Chloride 103 mmol/L (98-107); Estimated GFR 33.87 (mL/min/1.73m2); Glucose 262 mg/dL (74-106); Potassium 4.8 mmol/L (3.5-5.1); Sodium 144 mmol/L (136-145)
== END 2024-04-22 15:18 | disposition home or self-care (01) ==
LOC: NCHCN 15:17
PROVIDERS: PCP Family Medicine; Visit Provider Family Medicine
DX: I10 Essential (primary) hypertension (principal); D64.9 Anemia, unspecified
CPT/HCPCS: 80048; 85014; 85018

== ENCOUNTER 2024-06-28 10:40 | Outpatient (REF) | payer MEDICARE, SELFPAY ==
[2024-06-28 15:52] LABS: HCT 35.9 % (40.0-50.0); HGB 11.1 g/dL (13.5-17.5)
[2024-06-28 16:26] LABS: Hemoglobin A1C 6.2 % (<5.7)
[2024-06-28 16:32] LABS: ALT 15 U/L (16-63); AST 10 U/L (15-37); Albumin 3.7 g/dL (3.4-5.0); Alkaline Phosphatase 75 U/L (46-116); Anion Gap 1.1 mmol/L (3-11); Bilirubin, Total 0.52 mg/dL (0.2-1.0); CO2 41.9 mmol/L (21.0-32.0); CREATININE 2.3 mg/dL (0.70-1.30); Calcium 9.8 mg/dL (8.5-10.1); Chloride 102 mmol/L (98-107); Estimated GFR 30.36 (mL/min/1.73m2); Glucose 132 mg/dL (74-106); Potassium 4.6 mmol/L (3.5-5.1); Sodium 145 mmol/L (136-145); Total Protein 6.9 g/dL (6.4-8.2)
[2024-06-28 16:36] LABS: BUN 83 mg/dL (7-18)
[2024-06-30 15:49] LABS: Albumin 56.8 % (55.8-66.1); Albumin g/dL 3.8 g/dL (3.6-5.2); Comment (See Note); Monoclonal Spike g/dL 0.2 g/dL (None Seen); Total Protein 6.7 g/dL (6.3-8.2)
[2024-06-30 16:14] LABS: Immunotyping, Serum (See Note)
== END 2024-06-28 10:41 | disposition home or self-care (01) ==
LOC: NCHCN 10:40
PROVIDERS: PCP Family Medicine; Visit Provider Family Medicine
DX: E11.9 Type 2 diabetes mellitus without complications (principal); D64.9 Anemia, unspecified
CPT/HCPCS: 80053; 83036; 84165; 85014; 85018; 86320

== ENCOUNTER 2024-09-15 21:37 | Outpatient (REF) | payer MEDICARE, SELFPAY ==
[2024-09-15 21:41] LABS: HCT 35.5 % (40.0-50.0); HGB 10.8 g/dL (13.5-17.5); MCH 28.8 pg (27.0-33.0); MCHC 30.4 % (32.0-36.0); MCV 95 fL (80-95); MPV 9.9 fL (8.0-11.0); Platelet Count 144 10^3/uL (130-400); RBC 3.75 10^6/uL (4.36-5.78); RDW 15.1 % (11.8-14.1); WBC 8.19 10^3/uL (4.4-10.8)
[2024-09-15 21:56] LABS: Anion Gap 1.5 mmol/L (3-11); CO2 40.5 mmol/L (21.0-32.0); Calcium 9.4 mg/dL (8.5-10.1); Chloride 99 mmol/L (98-107); Estimated GFR 35.91 (mL/min/1.73m2); Glucose 121 mg/dL (74-106); Magnesium 1.9 mg/dL (1.8-2.4); NT-proBNP 1507 pg/mL (<300); Sodium 141 mmol/L (136-145)
[2024-09-15 22:07] LABS: BUN 93 mg/dL (7-18)
== END 2024-09-15 21:38 | disposition home or self-care (01) ==
LOC: NCHCN 21:37
PROVIDERS: PCP Family Medicine; Visit Provider Family Medicine
DX: I10 Essential (primary) hypertension (principal); R05.1 Acute cough
CPT/HCPCS: 80048; 85027; 83735; 83880

== ENCOUNTER 2024-09-24 19:40 | Emergency (ER) | payer MEDICARE, SELFPAY ==
[2024-09-24] VITALS (11 sets, daily range): BP systolic 108–131; BP diastolic 52–75; PULSE 81–95; RESP 16–27; TEMP 36.8; O2SAT 94–100
--- NOTE | 2024-09-24 19:45 | DI.CT_ITS ---
Exam(s) CT HEAD WO EXAM: CT HEAD WO CLINICAL HISTORY: seizure, new. TECHNIQUE: Imaging Protocol: Axial computed tomography images with coronal and sagittal reformatted images were created and reviewed COMPARISON: No exams were available for comparison FINDINGS: There are no skull fractures. There is fluid in left maxillary sinus. Right maxillary sinus is clear as are the other paranasal sinuses and there are no mastoid effusions evident. No fluid in the midd le ear cavities. There is no evidence of intracranial hemorrhage, mass effect, or shift of midline structures. There are no extra-axial fluid collections. The ventricles are not enlarged or shifted and there is no blo od within the ventricular system nor within the basal cisterns. There is symmetrical bifrontal atrophy. IMPRESSION: No acute intracranial findings on this noninfused CT scan of the brain. Symmetrical atrophy of both frontal lobes is noted. There is fluid in the left maxillary sinus consistent with sinusitis. The other paranasal sinuses ar e clear. RADIATION DOSE DELIVERED: 931.26mGy.cm Total DLP DATA REPOSITORY: All CT scans at this facility are submitted to the National Radiology Data Registry (NRDR) Dose Index Registry (DIR) with the [employer] ([employer]). RADIATION OPTIMIZATION: All CT scans at this facility use at least one of these dose optimization te chniques: automated exposure control; mA and/or kV adjustment per patient size (includes targeted exa ms where dose is matched to clinical indication); or iterative reconstruction.
--- NOTE | 2024-09-24 19:45 | DI.RAD_ITS ---
Exam(s) XR CHEST 1V IN DI DEPT EXAM: XR CHEST 1V IN DI DEPT CLINICAL HISTORY: new seizure. TECHNIQUE: 2D digital imaging was performed. COMPARISON: CR,XR XR PORTABLE CHEST AP from 07/19/2023 FINDINGS: Single AP portable view. Electronic device again projected over the left chest wall. Cardiomegaly again noted. Mediastinum unchanged. There is scarring or platelike atelectasis in the lower left lung, unchanged. No new infiltrates. N o obvious pleural effusions. No airspace pulmonary edema. Mild elevation the right hemidiaphragm is unchanged. IMPRESSION: Cardiomegaly. Scarring or platelike atelectasis in the left lung base. No new pulmonary findings when compared to 07/19/2023. DATA REPOSITORY: RADIATION DOSE DELIVERED:
--- NOTE | 2024-09-24 19:45 | ED.GENADUL_ITS ---
Discharge Plan Disposition Patient Disposition: Home Condition: Stable Discharge Details Clinical Impression: Near syncope Primary Care Provider: Goldie Gutierrez V ED Provider: Beulah Cannon Home Meds and New Rx's Prescriptions: No Action metoprolol succinate 100 mg tablet extended release 24 hr 100 mg PO DAILY Qty: 90 3RF tramadol 50 mg tablet 50 mg PO BID PRN losartan 50 mg tablet 50 mg PO DAILY Qty: 90 3RF fluconazole 100 mg tablet 150 mg PO DAILY PRN docusate sodium [Colace] 100 mg capsule 100 mg PO BID PRN duloxetine 30 mg capsule,delayed release(DR/EC) 60 mg PO DAILY meclizine 25 mg tablet,chewable 12.5 mg PO TID PRN clobetasol-emollient 15 GM cream 15 gm Topical DAILY levothyroxine 200 MCG tablet 200 mcg PO DAILY acetaminophen [Tylenol] 325 mg tablet 650 mg PO BID aspirin [Aspir-81] 81 MG tablet,delayed release (DR/EC) 81 mg PO DAILY gabapentin 600 MG tablet 600 mg PO TID pravastatin 40 MG tablet 40 mg PO HS diclofenac sodium [Voltaren] 1 % gel 2 gm Topical QID PRN ergocalciferol (vitamin D2) 1,250 mcg (50,000 unit) capsule 1,250 mcg PO .2x weekly furosemide 80 mg tablet 80 mg PO DAILY spironolactone 25 mg tablet 25 mg PO DAILY (DME) Dexcom G6 Sensor Device See Rx Instructions .ROUTE Rx Instructions: As directed diphenhydramine HCl [Allergy (diphenhydramine)] 25 mg tablet 25 mg PO Q6H PRN insulin lispro [Humalog U-100 Insulin] 100 unit/mL solution 1 sliding scale dose subcut USEASDIRECTD vitamin A-vitamin C-vit E-min Capsule 1 cap PO DAILY hemp seed oil 1 cap PO/SL DAILY berberrine 1 cap PO/SL BID nystatin 100,000 unit/gram cream 1 applic topical BID Discharge Instructions Instructions: Near Fainting (DC) Additional Instructions: Please follow-up with your primary care provider. In the meantime if you do get worse or develop any new or concerning symptoms please return to the emergency department. HPI General Date/Time Provider Initiated Documentation: 09/24/24 19:45 . HPI Narrative: Patient is a 68-year-old male with history of hypertension, hyperlipidemia, diabetes, congestive heart failure, renal insufficiency, respiratory failure on chronic supplemental oxygen who comes emergency department for seizure. History is obtained from the patient, his and EMS. The patient's reports that they had just finished eating dinner and the patient was sitting on the chair when she noticed that the patient was staring off. The patient reports that he felt like he was going to blackout and the patient's reports that he appeared to be unconscious and was shaking a little bit. The patient reports that he was never unconscious during this that he could still hear his talking. Reports he just felt not right. Reports this happened 3 times in the course of 10 minutes. The patient's reports that the patient was not at all confused during these episodes. Reports he did not fall or injure himself. Reports that he was diagnosed with bronchitis 10 days ago and had finished a course of antibiotics just yesterday. Reports he is also prescribed albuterol which helps with spasms when he goes into a coughing fit. Denies any new or worsening chest pain or shortness of breath. Denies abdominal pain, nausea or vomiting. Denies urinary symptoms. The patient's reports that the patient is acting at baseline now. Per EMS the patient was not postictal upon their arrival. Related Data Home Medications ?Medication ?Instructions ?Recorded ?Confirmed aspirin 81 mg tablet,delayed 81 mg PO DAILY 12/18/12 09/24/24 release (Aspir-) gabapentin 600 mg tablet 600 mg PO TID 12/18/12 09/24/24 pravastatin 40 mg tablet 40 mg PO HS 12/18/12 09/24/24 clobetasol-emollient 0.05 % 15 gm topical DAILY 08/08/16 09/20/23 topical cream levothyroxine 200 mcg tablet 200 mcg PO DAILY 08/28/17 09/24/24 metoprolol succinate 100 mg 100 mg PO DAILY #90 tabs 03/05/18 09/24/24 tablet,extended release 24 hr tramadol 50 mg tablet 50 mg PO BID PRN 01/26/19 09/24/24 acetaminophen 325 mg tablet 650 mg PO BID 01/27/19 09/24/24 (Tylenol) diclofenac sodium 1 % topical gel 2 gm topical QID PRN 01/27/19 09/24/24 (Voltaren) losartan 50 mg tablet 50 mg PO DAILY blood pressure #90 01/27/19 09/24/24 tabs docusate sodium 100 mg capsule 100 mg PO BID PRN 11/18/22 09/24/24 (Colace) duloxetine 30 mg capsule,delayed 60 mg PO DAILY 11/18/22 09/24/24 release fluconazole 100 mg tablet 150 mg PO DAILY PRN 11/18/22 09/24/24 meclizine 25 mg chewable tablet 12.5 mg PO TID PRN 11/18/22 09/24/24 ergocalciferol (vitamin D2) 1,250 1,250 mcg PO .2x weekly 07/19/23 09/24/24 mcg (50,000 unit) capsule furosemide 80 mg tablet 80 mg PO DAILY 07/19/23 09/24/24 spironolactone 25 mg tablet 25 mg PO DAILY 07/19/23 09/24/24 berberrine 1 cap PO/SL BID 09/20/23 09/24/24 blood-glucose sensor ([employer] G6 09/20/23 09/24/24 Sensor device) diphenhydramine HCl 25 mg tablet 25 mg PO Q6H PRN 09/20/23 09/24/24 (Allergy (diphenhydramine)) hemp seed oil 1 cap PO/SL DAILY 09/20/23 09/24/24 insulin lispro 100 unit/mL 1 sliding scale dose subcut 09/20/23 09/24/24 subcutaneous solution (Humalog USEASDIRECTD U-100 Insulin) nystatin 100,000 unit/gram topical 1 applic topical BID 09/20/23 09/24/24 cream vitamin A-vitamin C-vit E-min 1 cap PO DAILY 09/20/23 09/24/24 capsule Previous Rx's ?Medication ?Instructions ?Recorded metoprolol succinate 100 mg 100 mg PO DAILY #90 tabs 03/05/18 tablet,extended release 24 hr losartan 50 mg tablet 50 mg PO DAILY blood pressure #90 01/27/19 tabs Allergies Allergy/AdvReac Type Severity Reaction Status Date / Time lisinopril (From Prinivil) Allergy Severe itching in Verified 09/24/24 19:46 throat hay fever Allergy Unknown Skin Rash Uncoded 09/24/24 19:46 General MARK: 2 Review of Systems Narrative: Review of systems are negative except as mentioned. Exam Narrative Exam Narrative: General appearance: The patient is alert, has no immediate need for airway protection and no signs of toxicity. Eyes: Pupils are round, equal and reactive. No nystagmus is appreciated Mouth: Oral mucosal membranes are moist. Neck: No midline C-spine tenderness to palpation. Respiratory: There are no retractions, lung are clear to auscultation bilaterally. Cardiovascular: Regular in rate and rhythm. Radial pulses are intact and equal. Gastrointestinal: Abdomen is soft and non-tender to palpation throughout with normal bowel sounds. Neurologic: The patient is alert, awake and oriented to time, person and place. Musculoskeletal strength is intact and equal to bilateral upper and lower extremities. Sensation to light touch is intact and equal to bilateral upper and lower and extremities. Speech is clear. No facial asymmetry. Cranial nerves 2-12 motor function are intact and equal. No pronator drift noted. NIH stroke scale score is 0 at 1941. No truncal ataxia noted. Skin: Warm and dry. Musculoskeletal: Extremities and non-tender to palpation. Medical Decision Making Medical Records Medical records narrative: The patient is back to baseline upon EMS arrival. Patient has no complaints currently which is reassuring. The patient was aware of his surroundings during these episodes therefore I do have a lower suspicion for seizure as etiology of his symptoms nevertheless I did order imaging study of his head. I am if it is no it takes a while so maybe she is not interested maybe it just really hurts checking his blood work, EKG, chest x-ray and his urine as well. Patient agrees to the plan. The patient's blood work is back. He is found to be anemic however in comparison to most recent blood work this is stable. Renal function is poor however this is baseline also. EKG is done and this is nondiagnostic. The patient has been unable to provide a urine specimen because he had soiled his pants prior to arrival. Patient reports that he has no new urinary symptoms however. Reports that he does have chronic UTIs but this is baseline for him. The patient's imaging studies are finally resulted. CT head showed no acute finding and chest x-ray is benign. I have updated the patient and his of workup result thus far. I told him that the workup today did not show any abnormality that could explain the patient's near syncopal episode. I explained to the patient and his because I could not find any etiology of his near syncopal episode there could be significant pathologies that could cause the patient to have worsening condition and even but for right now his workup is benign which is reassuring. The patient and his are comfortable going home at this point therefore he is to be discharged. I strongly encouraged that they follow-up with his primary care doctor regardless but urged him to return to the emergency department immediately with any worsening symptoms or any other concerns. Imaging Data Radiologic Study: Imaging: X-Ray Radiologist's impression: No acute cardiopulmonary abnormality. Radiologic Study #2: Imaging: CT Scan Radiologist's impression: 1. No acute intracranial abnormality. 2. Left maxillary sinusitis. Lab Data Lab results reviewed: Yes I reviewed the patient's lab results. ECG Data Attestation: I personally reviewed and interpreted this ECG (s) as follows: (Sinus rhythm at a rate of 86 with a LBBB with appropriate ST discordance without acute ischemic change with PVCs) Quality:SDOH Health Related Social Needs: No Data to Display PFSH All Active Problems (Updated 09/24/24 @ 21:27 by Beulah Cannon DO) Near syncope (Acute) Chronic renal disease, stage 3, moderately decreased glomerular filtration rate between 30-59 mL/min/1.73 square meter (Chronic) Kidney disease (Acute) Heart failure (Acute) Morbid obesity (Acute) Chronic wound (Acute) Hearing difficulty (Acute) Tinnitus (Acute) Neuropathy (Acute) Lower extremity edema (Acute) Medical History Wound infection Plaque psoriasis Thrush Dyspnea on exertion Headache Lateral epicondylitis Rotator cuff syndrome CHF (congestive heart failure) Edema Hip pain Hypoxia Arthralgia Vertigo Obesity Anemia Renal insufficiency Sore throat Vitamin D deficiency Cardiomyopathy Hypertension Tubular adenoma of colon Hypogonadism male Psoriasis Osteoarthritis Ventral incisional hernia Hypothyroidism Hyperlipidemia Depression Foot ulceration Erectile dysfunction B12 deficiency Chronic pain Morbid obesity Gout Chronic painful diabetic neuropathy Oral candidiasis Lumbar radiculopathy Diabetes mellitus, type II, insulin dependent COURTNEY (obstructive sleep apnea) Surgical History Colostomy reveresal Colonoscopy - MAC Colectomy Family History Mother Diabetes Essential hypertension AAA (abdominal aortic aneurysm) Kidney disease Heart problem COPD (chronic obstructive pulmonary disease) Father Pancreatic cancer Diabetes Angina pectoris Maternal Uncle Leukemia Maternal Grandmother Heart problem Other Brain aneurysm Social History Smoking/Tobacco Use Status: Former Tobacco Use Quit Date: 04/27/94 Pack-years: 24 Tobacco: How many years used: 16 Smoking risk assessment performed?: Yes Alcohol Intake: current Alcohol Intake frequency: holidays/special occasions only Drug use: Never Substance use type: does not use Housing: house Do you feel safe at home: Yes Do you feel safe in your relationship?: Yes Additional Social history: arrived soon after, supportive to pt's needs.
--- NOTE | 2024-09-24 19:45 | RT.EKG_ITS ---
APPROVED REPORT Exam: Resting ECG Reason for Exam: seizure Patient Location: E HR:86 bpm ECG Measurements Heart Rate 86 AXIS CA 177 P 49 QRSd 137 QRS 4 QT 431 T 134 QTc 517 Conclusion Sinus rhythm at a rate of 86 with a LBBB with appropriate ST discordance without acute ischemic julio e with PVCs
[2024-09-24 20:02] LABS: HCT 36.2 % (40.0-50.0); HGB 10.7 g/dL (13.5-17.5); MCH 27.9 pg (27.0-33.0); MCHC 29.6 % (32.0-36.0); MCV 95 fL (80-95); MPV 9.3 fL (8.0-11.0); Platelet Count 150 10^3/uL (130-400); RBC 3.83 10^6/uL (4.36-5.78); RDW 15.3 % (11.8-14.1); RDW-SD 52.8 fL; WBC 10.22 10^3/uL (4.4-10.8)
[2024-09-24 20:21] LABS: ALT 17 U/L (16-63); AST 14 U/L (15-37); Albumin 3.2 g/dL (3.4-5.0); Alkaline Phosphatase 88 U/L (46-116); Anion Gap 3.5 mmol/L (3-11); Bilirubin, Total 0.5 mg/dL (0.2-1.0); CO2 41.5 mmol/L (21.0-32.0); CREATININE 2.2 mg/dL (0.70-1.30); Calcium 9.7 mg/dL (8.5-10.1); Chloride 96 mmol/L (98-107); Estimated GFR 32.03 (mL/min/1.73m2); Glucose 135 mg/dL (74-106); Sodium 141 mmol/L (136-145); Total Protein 7.1 g/dL (6.4-8.2)
[2024-09-24 20:22] LABS: BUN 86 mg/dL (7-18)
--- NOTE | 2024-09-24 21:17 | DI.VRAD_ITS ---
PROCEDURE INFORMATION: Exam: CT Head Without Contrast Exam date and time: 09/24/2024 7:58 PM Age: 68 years old Clinical indication: Condition or disease; Convulsions or seizures; New seizure TECHNIQUE: Imaging protocol: Computed tomography of the head without contrast. COMPARISON: No relevant prior studies available. FINDINGS: Brain: There is parenchymal atrophy. No intracranial mass, acute hemorrhage, or acute infarction. Cerebral ventricles: No ventriculomegaly. Paranasal sinuses: Left maxillary sinusitis. Mastoid air cells: Normal as visualized. Bones: Unremarkable. No acute fracture. Soft tissues: Unremarkable. Vasculature: Atherosclerotic vascular disease. IMPRESSION: 1. No acute intracranial abnormality. 2. Left maxillary sinusitis. Dictated and Authenticated by: Stewart Gayle MD. Orderin Davis Riojas MD
--- NOTE | 2024-09-24 21:18 | DI.VRAD_ITS ---
PROCEDURE INFORMATION: Exam: XR Chest Exam date and time: 09/24/2024 8:18 PM Age: 68 years old Clinical indication: Condition or disease; Other: New seizure TECHNIQUE: Imaging protocol: Radiologic exam of the chest. Views: 1 view. COMPARISON: CT CHEST PE ABD PELVIS W 09/20/2023 5:47 AM FINDINGS: Lungs: Bibasilar atelectasis. No focal consolidations or pulmonary edema. Pleural spaces: Normal. Heart/Mediastinum: Cardiomegaly. Bones/joints: Multilevel thoracic spine degenerative changes. Other findings: Support equipment projects over the left thorax. IMPRESSION: No acute cardiopulmonary abnormality. Dictated and Authenticated by: Stewart Gayle MD. Orderin Davis Riojas MD
== END 2024-09-24 21:47 | disposition home or self-care (01) ==
LOC: ER 21:36
PROVIDERS: Emergency Provider Emergency Medicine; PCP Family Medicine
DX: R55 Syncope and collapse (principal); Z86.79 Personal history of other diseases of the circulatory system; Z99.81 Dependence on supplemental oxygen
CPT/HCPCS: 99284 ×2; 36415; 80053; 85027; 93005; 70450; 71045; 93010

== ENCOUNTER 2024-10-13 14:09 | Emergency (ER) | payer MEDICARE, SELFPAY ==
[2024-10-13 14:16] VITALS: BP 124/73; PULSE 84; RESP 20; TEMP 36.4; O2SAT 83
--- NOTE | 2024-10-13 14:33 | W.ED.GENAD ---
Discharge Plan Disposition Patient Disposition: Home Condition: Stable Discharge Details Clinical Impression: Abscess of scrotum Primary Care Provider: Goldie Gutierrez V ED Provider: Zelalem Blunt Home Meds and New Rx's Prescriptions: Continued metoprolol succinate 100 mg tablet extended release 24 hr 100 mg PO DAILY Qty: 90 3RF tramadol 50 mg tablet 50 mg PO BID PRN losartan 50 mg tablet 50 mg PO DAILY Qty: 90 3RF fluconazole 100 mg tablet 150 mg PO DAILY PRN docusate sodium [Colace] 100 mg capsule 100 mg PO BID PRN duloxetine 30 mg capsule,delayed release(DR/EC) 60 mg PO DAILY meclizine 25 mg tablet,chewable 12.5 mg PO TID PRN clobetasol-emollient 15 GM cream 15 gm Topical DAILY levothyroxine 200 MCG tablet 200 mcg PO DAILY acetaminophen [Tylenol] 325 mg tablet 650 mg PO BID aspirin [Aspir-81] 81 MG tablet,delayed release (DR/EC) 81 mg PO DAILY gabapentin 600 MG tablet 600 mg PO TID pravastatin 40 MG tablet 40 mg PO HS diclofenac sodium [Voltaren] 1 % gel 2 gm Topical QID PRN ergocalciferol (vitamin D2) 1,250 mcg (50,000 unit) capsule 1,250 mcg PO .2x weekly furosemide 80 mg tablet 80 mg PO DAILY spironolactone 25 mg tablet 25 mg PO DAILY (DME) Dexcom G6 Sensor Device See Rx Instructions .ROUTE Rx Instructions: As directed diphenhydramine HCl [Allergy (diphenhydramine)] 25 mg tablet 25 mg PO Q6H PRN insulin lispro [Humalog U-100 Insulin] 100 unit/mL solution 1 sliding scale dose subcut USE[employer]DIRECTD vitamin A-vitamin C-vit E-min Capsule 1 cap PO DAILY hemp seed oil 1 cap PO/SL DAILY berberrine 1 cap PO/SL BID nystatin 100,000 unit/gram cream 1 applic topical BID Discharge Instructions Additional Instructions: Continue to take your antibiotics and follow recommendations by your urologist. If you feel significantly more ill or have persistent high fevers return to the emergency department for reevaluation. HPI General Mode of arrival: wheelchair. Date/Time Provider Initiated Documentation: 10/13/24 14:18. Limitations to Documentation: no limitations. Information obtained by: patient. History of Present Illness 68 year old M presents to the emergency department with the chief complaint of scrotal abscess, described as moderate, Patient started experiencing this day(s) (5) and it has been constant. No relieving factors improve symptom(s), No exacerbating factors reported . Patient notes no other symptoms.. Patient did receive the following treatments prior to arrival, none Related Data Home Medications ?Medication ?Instructions ?Recorded ?Confirmed aspirin 81 mg tablet,delayed 81 mg PO DAILY 12/18/12 09/24/24 release (Aspir-) gabapentin 600 mg tablet 600 mg PO TID 12/18/12 09/24/24 pravastatin 40 mg tablet 40 mg PO HS 12/18/12 09/24/24 clobetasol-emollient 0.05 % 15 gm topical DAILY 08/08/16 09/24/24 topical cream levothyroxine 200 mcg tablet 200 mcg PO DAILY 08/28/17 09/24/24 metoprolol succinate 100 mg 100 mg PO DAILY #90 tabs 03/05/18 09/24/24 tablet,extended release 24 hr tramadol 50 mg tablet 50 mg PO BID PRN 01/26/19 09/24/24 acetaminophen 325 mg tablet 650 mg PO BID 01/27/19 09/24/24 (Tylenol) diclofenac sodium 1 % topical gel 2 gm topical QID PRN 01/27/19 09/24/24 (Voltaren) losartan 50 mg tablet 50 mg PO DAILY blood pressure #90 01/27/19 09/24/24 tabs docusate sodium 100 mg capsule 100 mg PO BID PRN 11/18/22 09/24/24 (Colace) duloxetine 30 mg capsule,delayed 60 mg PO DAILY 11/18/22 09/24/24 release fluconazole 100 mg tablet 150 mg PO DAILY PRN 11/18/22 09/24/24 meclizine 25 mg chewable tablet 12.5 mg PO TID PRN 11/18/22 09/24/24 ergocalciferol (vitamin D2) 1,250 1,250 mcg PO .2x weekly 07/19/23 09/24/24 mcg (50,000 unit) capsule furosemide 80 mg tablet 80 mg PO DAILY 07/19/23 09/24/24 spironolactone 25 mg tablet 25 mg PO DAILY 07/19/23 09/24/24 berberrine 1 cap PO/SL BID 09/20/23 09/24/24 blood-glucose sensor ([employer] G6 09/20/23 09/24/24 Sensor device) diphenhydramine HCl 25 mg tablet 25 mg PO Q6H PRN 09/20/23 09/24/24 (Allergy (diphenhydramine)) hemp seed oil 1 cap PO/SL DAILY 09/20/23 09/24/24 insulin lispro 100 unit/mL 1 sliding scale dose subcut 09/20/23 09/24/24 subcutaneous solution (Humalog USEASDIRECTD U-100 Insulin) nystatin 100,000 unit/gram topical 1 applic topical BID 09/20/23 09/24/24 cream vitamin A-vitamin C-vit E-min 1 cap PO DAILY 09/20/23 09/24/24 capsule Previous Rx's ?Medication ?Instructions ?Recorded metoprolol succinate 100 mg 100 mg PO DAILY #90 tabs 03/05/18 tablet,extended release 24 hr losartan 50 mg tablet 50 mg PO DAILY blood pressure #90 01/27/19 tabs Allergies Allergy/AdvReac Type Severity Reaction Status Date / Time lisinopril (From Prinivil) Allergy Severe itching in Verified 09/24/24 19:46 throat hay fever Allergy Unknown Skin Rash Uncoded 09/24/24 19:46 General Stated Complaint: Cellulitis MARK: 3 Review of Systems All systems reviewed & are unremarkable except as noted in HPI and below Constitutional Constitutional: Denies chills, Denies fever(s) and Denies weakness Cardiovascular Cardiovascular: Denies chest pain and Denies dyspnea Respiratory Respiratory: Denies cough and Denies dyspnea Gastrointestinal Gastrointestinal: Denies abdominal pain and Denies vomiting Genitourinary Genitourinary: Reports dysuria Neurologic Neurologic: Denies weakness Exam Const General: no acute distress Orientation: alert [facility] Head: normal to inspection Ears: external ears normal General nose exam: external nose normal Mouth: moist mucous membranes Eyes General: appearance normal, both eyes and all related structures Neck Neck: normal visual inspection Resp Effort & Inspection: able to speak in complete sentences Cardio Rate: regular rate Skin General skin exam: no rashes or lesions noted Neuro General: patient alert and patient oriented x3 Extrem General: normal to inspection Psych Mental Status: mental status grossly normal Course Vital Signs Vital signs: Vital Signs Temperature 36.4 C 10/13/24 14:16 Pulse 84 10/13/24 14:16 Respiratory Rate 20 10/13/24 14:16 Blood Pressure 124/73 10/13/24 14:16 Pulse Oximetry 83 L 10/13/24 14:16 Temperature 36.4 C 10/13/24 14:16 Temperature Source Oral 10/13/24 14:16 Pulse 84 10/13/24 14:16 Respiratory Rate 20 10/13/24 14:16 Blood Pressure 124/73 10/13/24 14:16 Blood Pressure Position Sitting 10/13/24 14:16 Pulse Oximetry 83 L 10/13/24 14:16 Oxygen Delivery Method Room Air 10/13/24 14:16 Oxygen Flow Rate 0 10/13/24 14:16 Pain Level 4 10/13/24 14:16 Medical Decision Making 68-year-old male with a history of chronic kidney disease, heart failure, morbid obesity, who comes in stating he has a scrotal abscess and was told by his urologist that he needed to go to [facility]. Patient states she has had swelling and increased pain for 6 days and had an ultrasound done at [facility] yesterday which showed a scrotal abscess per the patient and then was told by his urologist at [facility] for the patient that they were not able to address it there so he was told to go to [facility] and for unclear reasons he came here. He denies any severe pain or fevers. I advised we do not have access to the ultrasound results or images that were done at [facility] and I would have to do another exam and likely another ultrasound if we were not able to get the images and results forwarded from [facility]. The patient decided he did not want to stay and wait for the time it would take to get these studies done/received and requested discharge and has decision making capacity. He states that he is going to take the antibiotics prescribed to him by his urologist and also follow his recommendations that was given to him by his urologist and he understands he can return to the emergency department at any time if he changes his mind . PFSH All Active Problems (Updated 10/13/24 @ 14:34 by Zelalem Blunt MD) Abscess of scrotum (Acute) Near syncope (Acute) Chronic renal disease, stage 3, moderately decreased glomerular filtration rate between 30-59 mL/min/1.73 square meter (Chronic) Kidney disease (Acute) Heart failure (Acute) Morbid obesity (Acute) Chronic wound (Acute) Hearing difficulty (Acute) Tinnitus (Acute) Neuropathy (Acute) Lower extremity edema (Acute) Medical History Wound infection Plaque psoriasis Thrush Dyspnea on exertion Headache Lateral epicondylitis Rotator cuff syndrome CHF (congestive heart failure) Edema Hip pain Hypoxia Arthralgia Vertigo Obesity Anemia Renal insufficiency Sore throat Vitamin D deficiency Cardiomyopathy Hypertension Tubular adenoma of colon Hypogonadism male Psoriasis Osteoarthritis Ventral incisional hernia Hypothyroidism Hyperlipidemia Depression Foot ulceration Erectile dysfunction B12 deficiency Chronic pain Morbid obesity Gout Chronic painful diabetic neuropathy Oral candidiasis Lumbar radiculopathy Diabetes mellitus, type II, insulin dependent COURTNEY (obstructive sleep apnea) Surgical History Colostomy reveresal Colonoscopy - MAC Colectomy Family History Mother Diabetes Essential hypertension AAA (abdominal aortic aneurysm) Kidney disease Heart problem COPD (chronic obstructive pulmonary disease) Father Pancreatic cancer Diabetes Angina pectoris Maternal Uncle Leukemia Maternal Grandmother Heart problem Other Brain aneurysm Social History Smoking/Tobacco Use Status: Former Tobacco Use Quit Date: 04/27/94 Pack-years: 24 Tobacco: How many years used: 16 Smoking risk assessment performed?: Yes Alcohol Intake: current Alcohol Intake frequency: holidays/special occasions only Drug use: Never Substance use type: does not use Housing: house Do you feel safe at home: Yes Do you feel safe in your relationship?: Yes Additional Social history: arrived soon after, supportive to pt's needs.
== END 2024-10-13 14:55 | disposition home or self-care (01) ==
PROVIDERS: Emergency Provider Emergency Medicine; PCP Family Medicine
DX: N49.2 Inflammatory disorders of scrotum (principal)
CPT/HCPCS: 99283; 99282

== ENCOUNTER 2024-11-07 18:11 | Outpatient (REF) | payer MEDICARE, SELFPAY ==
[2024-11-07 18:50] LABS: Abs Immature Grans 0.02 10^3/uL (0.0-0.06); HCT 33.2 % (40.0-50.0); HGB 9.3 g/dL (13.5-17.5); Immature Grans % 0.3 %; MCH 26.7 pg (27.0-33.0); MCHC 28.0 % (32.0-36.0); MCV 95 fL (80-95); MPV 10.6 fL (8.0-11.0); Platelet Count 164 10^3/uL (130-400); RBC 3.48 10^6/uL (4.36-5.78); RDW 16.2 % (11.8-14.1); RDW-SD 57.1 fL; WBC 6.78 10^3/uL (4.4-10.8)
[2024-11-07 19:01] LABS: Anion Gap 2.8 mmol/L (3-11); BUN 49 mg/dL (7-18); CO2 42.2 mmol/L (21.0-32.0); Calcium 9.3 mg/dL (8.5-10.1); Chloride 99 mmol/L (98-107); Estimated GFR 50.71 (mL/min/1.73m2); Glucose 127 mg/dL (74-106); Potassium 4.7 mmol/L (3.5-5.1); Sodium 144 mmol/L (136-145)
== END 2024-11-07 18:12 | disposition home or self-care (01) ==
LOC: LBN 18:11
PROVIDERS: PCP Family Medicine; Visit Provider Family Medicine
DX: I50.22 Chronic systolic (congestive) heart failure (principal)
CPT/HCPCS: 80048; 85025

== ENCOUNTER 2025-01-20 18:04 | Outpatient (REF) | payer MEDICARE, SELFPAY ==
[2025-01-20 19:20] LABS: HCT 39.8 % (40.0-50.0); HGB 11.8 g/dL (13.5-17.5)
[2025-01-20 19:29] LABS: Anion Gap 3.9 mmol/L (3-11); BUN 72 mg/dL (7-18); CO2 43.1 mmol/L (21.0-32.0); Calcium 9.4 mg/dL (8.5-10.1); Chloride 93 mmol/L (98-107); Estimated GFR 43.37 (mL/min/1.73m2); Glucose 154 mg/dL (74-106); Magnesium 2.3 mg/dL (1.8-2.4); Potassium 4.6 mmol/L (3.5-5.1); Sodium 140 mmol/L (136-145)
== END 2025-01-20 18:05 | disposition home or self-care (01) ==
LOC: LBN 18:04
PROVIDERS: PCP Family Medicine; Visit Provider Family Medicine
DX: I50.22 Chronic systolic (congestive) heart failure (principal)
CPT/HCPCS: 80048; 83735; 85014; 85018

== ENCOUNTER 2025-01-30 19:30 | Outpatient (REF) | payer MEDICARE, SELFPAY ==
[2025-01-30 19:51] LABS: HCT 39.1 % (40.0-50.0); HGB 11.5 g/dL (13.5-17.5); MCH 27.6 pg (27.0-33.0); MCHC 29.4 % (32.0-36.0); MCV 94 fL (80-95); MPV 10.8 fL (8.0-11.0); Platelet Count 137 10^3/uL (130-400); RBC 4.16 10^6/uL (4.36-5.78); RDW 15.4 % (11.8-14.1); RDW-SD 53.1 fL; WBC 7.37 10^3/uL (4.4-10.8)
[2025-01-30 20:10] LABS: ALT 13 U/L (16-63); AST 10 U/L (15-37); Albumin 3.2 g/dL (3.4-5.0); Alkaline Phosphatase 95 U/L (46-116); BUN 77 mg/dL (7-18); Bilirubin, Total 0.5 mg/dL (0.2-1.0); Calcium 9.4 mg/dL (8.5-10.1); Chloride 93 mmol/L (98-107); Estimated GFR 35.68 (mL/min/1.73m2); Glucose 162 mg/dL (74-106); NT-proBNP 6906 pg/mL (<300); Potassium 4.2 mmol/L (3.5-5.1); Sodium 143 mmol/L (136-145); Total Protein 6.2 g/dL (6.4-8.2)
[2025-01-30 20:30] LABS: Anion Gap 4.99999 mmol/L (3-11); CO2 > 45.0 mmol/L (21.0-32.0)
== END 2025-01-30 19:31 | disposition home or self-care (01) ==
LOC: NCHCN 19:30
PROVIDERS: PCP Family Medicine; Visit Provider Family Medicine
DX: I50.22 Chronic systolic (congestive) heart failure (principal)
CPT/HCPCS: 80053; 85027; 83880; 85014; 85018

== ENCOUNTER 2025-02-02 15:56 | Outpatient (REF) | payer MEDICARE, SELFPAY ==
[2025-02-02 17:00] LABS: BUN 77 mg/dL (7-18); Calcium 9.4 mg/dL (8.5-10.1); Chloride 91 mmol/L (98-107); Estimated GFR 40.49 (mL/min/1.73m2); Glucose 144 mg/dL (74-106); Magnesium 2.0 mg/dL (1.8-2.4); Potassium 4.1 mmol/L (3.5-5.1); Sodium 142 mmol/L (136-145)
[2025-02-02 17:04] LABS: Anion Gap 5.99999 mmol/L (3-11); CO2 > 45.0 mmol/L (21.0-32.0)
== END 2025-02-02 15:57 | disposition home or self-care (01) ==
LOC: NCHCN 15:56
PROVIDERS: PCP Family Medicine; Visit Provider Family Medicine
DX: N28.9 Disorder of kidney and ureter, unspecified (principal)
CPT/HCPCS: 80048; 83735

== ENCOUNTER 2025-02-10 16:17 | Outpatient (REF) | payer MEDICARE, SELFPAY ==
[2025-02-10 16:19] LABS: Calcium 9.7 mg/dL (8.5-10.1); Chloride 86 mmol/L (98-107); Estimated GFR 33.66 (mL/min/1.73m2); Glucose 169 mg/dL (74-106); Potassium 3.7 mmol/L (3.5-5.1); Sodium 138 mmol/L (136-145)
[2025-02-10 16:46] LABS: Anion Gap 6.99999 mmol/L (3-11); BUN 95 mg/dL (7-18); CO2 > 45.0 mmol/L (21.0-32.0)
== END 2025-02-10 16:18 | disposition home or self-care (01) ==
LOC: LBN 16:17
PROVIDERS: PCP Family Medicine; Visit Provider Family Medicine
DX: I13.0 Hypertensive heart and chronic kidney disease with heart failure and stage 1 through stage 4 chronic kidney disease, or unspecified chronic kidney disease (principal)
CPT/HCPCS: 80048

== ENCOUNTER 2025-02-17 18:11 | Outpatient (REF) | payer MEDICARE, SELFPAY ==
[2025-02-17 17:37] LABS: Calcium 9.5 mg/dL (8.5-10.1); Chloride 87 mmol/L (98-107); Estimated GFR 37.95 (mL/min/1.73m2); Glucose 195 mg/dL (74-106); Potassium 4.2 mmol/L (3.5-5.1); Sodium 136 mmol/L (136-145)
[2025-02-17 17:49] LABS: Anion Gap 3.99999 mmol/L (3-11); CO2 > 45.0 mmol/L (21.0-32.0)
[2025-02-17 17:50] LABS: BUN 104 mg/dL (7-18)
== END 2025-02-17 18:12 | disposition home or self-care (01) ==
LOC: NCHCN 18:11
PROVIDERS: PCP Family Medicine; Visit Provider Family Medicine
DX: I13.0 Hypertensive heart and chronic kidney disease with heart failure and stage 1 through stage 4 chronic kidney disease, or unspecified chronic kidney disease (principal)
CPT/HCPCS: 80048

== ENCOUNTER 2025-02-27 11:09 | Outpatient (REF) | payer MEDICARE, SELFPAY ==
[2025-02-24 20:29] LABS: Calcium 9.9 mg/dL (8.5-10.1); Chloride 90 mmol/L (98-107); Glucose 137 mg/dL (74-106); Potassium 4.1 mmol/L (3.5-5.1); Sodium 142 mmol/L (136-145)
[2025-02-24 20:36] LABS: Anion Gap 6.99999 mmol/L (3-11); CO2 > 45.0 mmol/L (21.0-32.0)
[2025-02-24 20:40] LABS: BUN 102 mg/dL (7-18)
== END 2025-02-27 11:10 | disposition home or self-care (01) ==
LOC: NCHCN 11:09
PROVIDERS: PCP Family Medicine; Visit Provider Family Medicine
DX: R79.9 Abnormal finding of blood chemistry, unspecified (principal); I13.0 Hypertensive heart and chronic kidney disease with heart failure and stage 1 through stage 4 chronic kidney disease, or unspecified chronic kidney disease
CPT/HCPCS: 80048

== ENCOUNTER 2025-03-03 15:04 | Outpatient (REF) | payer MEDICARE, SELFPAY ==
[2025-03-03 16:23] LABS: Calcium 9.3 mg/dL (8.5-10.1); Chloride 93 mmol/L (98-107); Glucose 148 mg/dL (74-106); Potassium 4.7 mmol/L (3.5-5.1); Sodium 140 mmol/L (136-145)
[2025-03-03 17:05] LABS: Anion Gap 1.99999 mmol/L (3-11); CO2 > 45.0 mmol/L (21.0-32.0)
[2025-03-03 17:10] LABS: BUN 96 mg/dL (7-18)
== END 2025-03-03 15:05 | disposition home or self-care (01) ==
LOC: NCHCN 15:04
PROVIDERS: PCP Family Medicine; Visit Provider Family Medicine
DX: I50.9 Heart failure, unspecified (principal)
CPT/HCPCS: 80048; 83880

== ENCOUNTER 2025-03-06 19:06 | Outpatient (REF) | payer MEDICARE, SELFPAY ==
[2025-03-06 19:24] LABS: HCT 38.4 % (40.0-50.0); HGB 11.7 g/dL (13.5-17.5)
[2025-03-06 19:45] LABS: Calcium 9.1 mg/dL (8.5-10.1); Chloride 91 mmol/L (98-107); Glucose 190 mg/dL (74-106); Potassium 4.0 mmol/L (3.5-5.1); Sodium 141 mmol/L (136-145)
[2025-03-06 20:12] LABS: Anion Gap 4.99999 mmol/L (3-11); BUN 105 mg/dL (7-18); CO2 > 45.0 mmol/L (21.0-32.0)
[2025-03-07 18:32] LABS: PSA, Screening <0.1 ng/mL (<=4.5)
== END 2025-03-06 19:07 | disposition home or self-care (01) ==
LOC: NCHCN 19:06
PROVIDERS: PCP Family Medicine; Visit Provider Family Medicine
DX: S81.802D Unspecified open wound, left lower leg, subsequent encounter (principal); I13.0 Hypertensive heart and chronic kidney disease with heart failure and stage 1 through stage 4 chronic kidney disease, or unspecified chronic kidney disease; X58.XXXD Exposure to other specified factors, subsequent encounter; R89.5 Abnormal microbiological findings in specimens from other organs, systems and tissues
CPT/HCPCS: 80048; 84153; 87077; 83880; 85014; 85018; 87070; 87186; 87205

== ENCOUNTER 2025-03-28 09:38 | Outpatient (REF) | payer MEDICARE, SELFPAY | END 2025-03-28 09:39 | disposition home or self-care (01) | LOC: NCHCN 09:38 | PROVIDERS: PCP Family Medicine; Visit Provider Family Medicine | DX: S81.801A Unspecified open wound, right lower leg, initial encounter (principal); S81.802A Unspecified open wound, left lower leg, initial encounter; L08.89 Other specified local infections of the skin and subcutaneous tissue; B96.89 Other specified bacterial agents as the cause of diseases classified elsewhere | CPT/HCPCS: 87077; 87070; 87186; 87205 ==

== ENCOUNTER 2025-04-03 16:09 | Outpatient (REF) | payer MEDICARE, SELFPAY ==
[2025-04-03 16:11] LABS: Abs Immature Grans 0.02 10^3/uL (0.0-0.06); HCT 38.1 % (40.0-50.0); HGB 11.5 g/dL (13.5-17.5); Immature Grans % 0.2 %; MCH 29.1 pg (27.0-33.0); MCHC 30.2 % (32.0-36.0); MCV 97 fL (80-95); MPV 10.8 fL (8.0-11.0); Platelet Count 142 10^3/uL (130-400); RBC 3.95 10^6/uL (4.36-5.78); RDW 15.3 % (11.8-14.1); RDW-SD 54.4 fL; WBC 8.38 10^3/uL (4.4-10.8)
[2025-04-03 16:26] LABS: Ferritin 36 ng/mL (11-307)
[2025-04-03 17:00] LABS: ALT 11 U/L (10-49); AST 13 U/L (<34); Albumin 3.9 g/dL (3.2-5.0); Alkaline Phosphatase 90 U/L (46-116); Anion Gap 7.3 mmol/L (3-11); BUN 112 mg/dL (9-23); Bilirubin, Total 0.40 mg/dL (0.2-1.2); CO2 39.9 mmol/L (20.0-31.0); Calcium 9.4 mg/dL (8.3-10.6); Chloride 96 mmol/L (98-107); Folate > 24.0 ng/mL (>5.38); Glucose 151 mg/dL (74-106); Potassium 4.2 mmol/L (3.5-5.1); Sodium 143 mmol/L (136-145); Total Protein 6.6 g/dL (5.7-8.2)
[2025-04-04 10:35] LABS: Kappa Free Light Chain 7.22 mg/dL (0.33-1.94); Lambda Free Light Chain 4.48 mg/dL (0.57-2.63)
[2025-04-05 16:11] LABS: Albumin 52.1 % (55.8-66.1); Albumin g/dL 3.4 g/dL (3.6-5.2); Alpha 1 g/dL 0.40 g/dL (0.15-0.40); Alpha 2 g/dL 0.70 g/dL (0.50-1.00); Beta g/dL 0.90 g/dL (0.60-1.20); Gamma g/dL 1.00 g/dL (0.60-1.60); Total Protein 6.5 g/dL (6.3-8.2)
== END 2025-04-03 16:10 | disposition home or self-care (01) ==
LOC: LBN 16:09
PROVIDERS: PCP Family Medicine; Visit Provider Internal Medicine Hematology & Oncology
DX: N18.30 Chronic kidney disease, stage 3 unspecified (principal); L97.811 Non-pressure chronic ulcer of other part of right lower leg limited to breakdown of skin; I13.0 Hypertensive heart and chronic kidney disease with heart failure and stage 1 through stage 4 chronic kidney disease, or unspecified chronic kidney disease; I25.10 Atherosclerotic heart disease of native coronary artery without angina pectoris
CPT/HCPCS: 80053; 82784; 82728; 82746; 83883; 84165; 85025; 86320

== ENCOUNTER 2025-04-19 15:29 | Outpatient (REF) | payer MEDICARE, SELFPAY ==
[2025-04-19 18:27] LABS: TSH (W/Ref FT4) 3.06 uIU/mL (0.55-4.78)
[2025-04-19 18:35] LABS: Glucose Negative (Negative)
[2025-04-19 19:15] LABS: BUN 103 mg/dL (9-23); CO2 > 40.0 mmol/L (20.0-31.0); Calcium 9.3 mg/dL (8.3-10.6); Chloride 92 mmol/L (98-107); Glucose 190 mg/dL (74-106); Potassium 4.1 mmol/L (3.5-5.1); Sodium 142 mmol/L (136-145)
== END 2025-04-19 15:30 | disposition home or self-care (01) ==
LOC: LBN 15:29
PROVIDERS: PCP Family Medicine; Visit Provider Family Medicine
DX: E11.51 Type 2 diabetes mellitus with diabetic peripheral angiopathy without gangrene (principal); N18.30 Chronic kidney disease, stage 3 unspecified; E03.9 Hypothyroidism, unspecified
CPT/HCPCS: 80048; 81003; 84443

== ENCOUNTER 2025-04-26 15:55 | Outpatient (REF) | payer MEDICARE, SELFPAY ==
[2025-04-26 16:34] LABS: ESR 53 mm/hr (0-20)
[2025-04-26 16:35] LABS: Abs Immature Grans 0.03 10^3/uL (0.0-0.06); HCT 33.1 % (40.0-50.0); HGB 9.7 g/dL (13.5-17.5); Immature Grans % 0.4 %; MCH 27.6 pg (27.0-33.0); MCHC 29.3 % (32.0-36.0); MCV 94 fL (80-95); MPV 10.0 fL (8.0-11.0); Platelet Count 158 10^3/uL (130-400); RBC 3.52 10^6/uL (4.36-5.78); RDW 14.9 % (11.8-14.1); RDW-SD 52.0 fL; WBC 8.15 10^3/uL (4.4-10.8)
[2025-04-26 17:34] LABS: ALT 9 U/L (10-49); AST 13 U/L (<34); Albumin 3.6 g/dL (3.2-5.0); Alkaline Phosphatase 84 U/L (46-116); BUN 101 mg/dL (9-23); Bilirubin, Total 0.6 mg/dL (0.2-1.2); C-Reactive Protein 1.76 mg/dL (<=0.50); CO2 > 40.0 mmol/L (20.0-31.0); Calcium 9.4 mg/dL (8.3-10.6); Chloride 93 mmol/L (98-107); Glucose 206 mg/dL (74-106); Potassium 3.9 mmol/L (3.5-5.1); Sodium 143 mmol/L (136-145); Total Protein 6.2 g/dL (5.7-8.2)
== END 2025-04-26 15:56 | disposition home or self-care (01) ==
LOC: LBN 15:55
PROVIDERS: PCP Family Medicine; Visit Provider Podiatrist Foot & Ankle Surgery
DX: L97.421 Non-pressure chronic ulcer of left heel and midfoot limited to breakdown of skin (principal)
CPT/HCPCS: 80053; 85652; 85025; 86140